=== PATIENT | female | born 1975 | race Caucasian/White ===

== ENCOUNTER 2019-12-20 10:49 | Outpatient (CLI) | payer OTHER, SELFPAY ==
--- NOTE | 2019-12-20 10:54 | US_ITS ---
WS: [id number] Bilateral renal ultrasound, 12/20/2019 Clinical Data: CHRONIC KIDNEY DZ/ESSENTIAL HTN Comparison: Abdomen ultrasound, 06/15/2016. Findings: The right kidney measures 9.6 cm x 4.6 cm x 4.6 cm and the left kidney is 11.1 cm x 4.5 cm x 5.1 cm. The right kidney shows several small cysts and nonobstructing stones. The left kidney shows no cysts or stones. The abdominal aorta and inferior vena cava show no vascular abnormalities. The bladder showed no intraluminal filling defects or wall thickening. US/US renal BI* [id number] Impression: Small right renal cysts and nonobstructing calculi.
== END 2019-12-20 10:50 | disposition home or self-care (01) ==
LOC: US 10:52
PROVIDERS: Visit Provider Nurse Practitioner Family
DX: N18.9 Chronic kidney disease, unspecified (principal); I10 Essential (primary) hypertension; N20.0 Calculus of kidney; Q61.02 Congenital multiple renal cysts
CPT/HCPCS: 76770

== ENCOUNTER 2020-01-31 11:23 | Outpatient (CLI) | payer OTHER, SELFPAY ==
--- NOTE | 2020-01-31 11:35 | XR_ITS ---
WS: [id number] CHEST 2 VIEWS HISTORY: PNEUMONIA, SHORTNESS OF BREATH COMPARISON: 03/08/2019 Lungs: Clear with no abnormality. No pleural effusion or pneumothorax. Cardiac size: Normal. Mediastinum/Aorta: Normal mediastinum. Bones: Normal. XR/XR chest 2V* [id number] IMPRESSION: Normal chest.
== END 2020-01-31 11:24 | disposition home or self-care (01) ==
PROVIDERS: Family Provider Nurse Practitioner Family; PCP Nurse Practitioner Family; Visit Provider Nurse Practitioner Family
DX: J18.9 Pneumonia, unspecified organism (principal); R06.02 Shortness of breath
CPT/HCPCS: 71046

== ENCOUNTER 2020-12-23 18:31 | Outpatient (CLI) | payer OTHER, SELFPAY ==
--- NOTE | 2020-12-23 18:39 | XR_ITS ---
WS: [id number] Pelvis, AP and both obliques, 12/23/2020 Clinical Data: Pain rt hip , pelvis and thigh Comparison: None. Findings: No fractures or dislocations are seen. The SI joints and pubic symphysis are intact. The soft tissues are not remarkable. XR/XR pelvis min 3V [id number] Impression: Negative for fracture.
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
== END 2020-12-23 18:32 | disposition home or self-care (01) ==
LOC: RAD 18:35
PROVIDERS: PCP Nurse Practitioner Family; Visit Provider Nurse Practitioner
DX: S79.821A Other specified injuries of right thigh, initial encounter (principal); X58.XXXA Exposure to other specified factors, initial encounter
CPT/HCPCS: 72190; 73552

== ENCOUNTER 2021-03-11 13:26 | Outpatient (CLI) | payer OTHER, SELFPAY ==
[2021-03-11 13:40] VITALS: BP 158/100; PULSE 127; RESP 17; TEMP 37.1; O2SAT 93; BMI 23.3
[2021-03-11 14:15] VITALS: BP 151/98; PULSE 113; RESP 16; TEMP 36.6; O2SAT 95
[2021-03-11 15:13] VITALS: BP 153/94; PULSE 111; RESP 16; TEMP 36.2; O2SAT 94
== END 2021-03-11 13:27 | disposition home or self-care (01) ==
LOC: OPS 13:27
PROVIDERS: PCP Nurse Practitioner Family; Visit Provider Nurse Practitioner Family
DX: U07.1 COVID-19 (principal)
CPT/HCPCS: 96365

== ENCOUNTER 2021-07-08 12:46 | Outpatient (CLI) | payer OTHER, SELFPAY ==
--- NOTE | 2021-07-08 12:53 | MM_ITS ---
WS: [id number] BILATERAL 3D TOMOSYNTHESIS DIGITAL SCREENING MAMMOGRAPHY WITH CAD CLINICAL INFORMATION: SCREENING HISTORY: Screening mammogram. No current complaints. COMPARISON: TECHNIQUE: Bilateral CC and MLO views. FINDINGS: The breasts are composed of heterogeneous fibroglandular density tissue, which can limit the detectio n of small underlying mass lesions. Vascular calcification. No suspicious mass, asymmetry, calcificat ions, or architectural distortion. No evidence of malignancy. MM/[place] [id number] IMPRESSION: BI-RADS: 2-Benign FOLLOW UP: 1 Year Follow-up Recommend return to annual screening mammography.
== END 2021-07-08 12:47 | disposition home or self-care (01) ==
LOC: RADSHAW 12:50
PROVIDERS: PCP Nurse Practitioner Family; Visit Provider Nurse Practitioner Family
DX: Z12.31 Encounter for screening mammogram for malignant neoplasm of breast (principal)
CPT/HCPCS: 77063; 77067

== ENCOUNTER → 2022-08-20 11:10 | Outpatient (BNVA) | payer BC, SELFPAY | PROVIDERS: PCP Nurse Practitioner Family; Visit Provider Nurse Practitioner Family | DX: J02.9 Acute pharyngitis, unspecified (principal) | CPT/HCPCS: 87880 ==

== ENCOUNTER 2023-07-05 13:24 | Emergency (ER) | payer BC, SELFPAY ==
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
[2023-07-05 13:36] VITALS: BP 204/101; PULSE 89; RESP 15; TEMP 36.7; O2SAT 98
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
--- NOTE | 2023-07-05 14:01 | PC.PHAR ---
pt states she takes care of her own medications-pt states she takes her atenolol 25mg daily prn heart palpitations rx filled 07/02/23 30d/s 25mg daily
[2023-07-05] MEDS: cephALEXin 500 mg Capsule PO (14:52)
[2023-07-05] MEDS: tetanus-dipt-pertussis 0.5 mL SDV IM (14:53)
== END 2023-07-05 15:07 | disposition home or self-care (01) ==
PROVIDERS: Emergency Provider Emergency Medicine; PCP Nurse Practitioner Family
DX: S91.331A Puncture wound without foreign body, right foot, initial encounter (principal); S92.354B Nondisplaced fracture of fifth metatarsal bone, right foot, initial encounter for open fracture; W34.00XA Accidental discharge from unspecified firearms or gun, initial encounter; Z23 Encounter for immunization
CPT/HCPCS: 73630; 90471; 90715; 99283

== ENCOUNTER 2023-07-07 10:32 | Outpatient (CLI) | payer BC, SELFPAY | END 2023-07-07 10:33 | disposition home or self-care (01) | LOC: SPT 10:33 | PROVIDERS: PCP Nurse Practitioner Family; Visit Provider Podiatrist Foot & Ankle Surgery | DX: Z46.89 Encounter for fitting and adjustment of other specified devices (principal); S92.354B Nondisplaced fracture of fifth metatarsal bone, right foot, initial encounter for open fracture; X58.XXXD Exposure to other specified factors, subsequent encounter | CPT/HCPCS: L4361 ==

== ENCOUNTER → 2023-07-21 12:46 | Outpatient (BNVA) | payer BC, SELFPAY | PROVIDERS: PCP Nurse Practitioner Family; Visit Provider Podiatrist Foot & Ankle Surgery | DX: S92.354B Nondisplaced fracture of fifth metatarsal bone, right foot, initial encounter for open fracture (principal); W34.09XA Accidental discharge from other specified firearms, initial encounter | CPT/HCPCS: 73630 ==

== ENCOUNTER 2023-07-21 14:11 | Outpatient (CLI) | payer BC, SELFPAY | END 2023-07-21 14:12 | disposition home or self-care (01) | LOC: SPT 14:11 | PROVIDERS: PCP Nurse Practitioner Family; Visit Provider Podiatrist Foot & Ankle Surgery | DX: Z46.89 Encounter for fitting and adjustment of other specified devices (principal); S92.354B Nondisplaced fracture of fifth metatarsal bone, right foot, initial encounter for open fracture; X58.XXXD Exposure to other specified factors, subsequent encounter | CPT/HCPCS: L3031 ==

== ENCOUNTER → 2023-08-11 12:37 | Outpatient (BNVA) | payer BC, SELFPAY | PROVIDERS: PCP Nurse Practitioner Family; Visit Provider Podiatrist Foot & Ankle Surgery | DX: S92.354B Nondisplaced fracture of fifth metatarsal bone, right foot, initial encounter for open fracture (principal); W34.09XA Accidental discharge from other specified firearms, initial encounter | CPT/HCPCS: 73630 ==

== ENCOUNTER 2024-03-08 11:13 | Outpatient (CLI) | payer BC, SELFPAY ==
--- NOTE | 2024-03-08 11:19 | MM_ITS ---
WS: [id number] BILATERAL 3D TOMOSYNTHESIS DIGITAL DIAGNOSTIC MAMMOGRAPHY WITH CAD CLINICAL INFORMATION: RIGHT BREAST LUMP HISTORY: COMPARISON: 07/08/2021 TECHNIQUE: Bilateral CC, MLO, and ML views. FINDINGS: The breasts are composed of heterogeneous fibroglandular density, which can limit the detection of sm all underlying mass lesions. Palpable marker upper outer RIGHT breast. Deep to the palpable marker is a new focal asymmetric density with associated pleomorphic calcifications. Asymmetric density measur es approximately 1.8 x 1.3 cm. Ultrasound of this area is pending. Focal asymmetric density located a long the RIGHT axillary tail. Vascular calcifications. LEFT breast is unchanged. ULTRASOUND BREAST RIGHT TECHNIQUE: Ultrasound right breast focused area of concern. CLINICAL INFORMATION: RIGHT BREAST LUMP FINDINGS: Ultrasound RIGHT breast the 10 o'clock position 4 cm from the nipple. Deep to the palpable marker is a hypoechoic spiculated solid appearing mass measuring approximately 1.4 x 0.9 x 1.5 cm suspicious fo r neoplasm. Recommend further evaluation with ultrasound-guided biopsy. Ultrasound of the RIGHT axilla demonstrates no abnormal lymph nodes. MM/MM diag BI tomosynthesis [id number] IMPRESSION: DENSITY: The breasts are heterogeneously dense, which may obscure small masses. BI-RADS: 5 - Highly suggestive of Malignancy FOLLOW UP: US Guided Biopsy Recommended Recommend ultrasound-guided biopsy of the RIGHT breast mass.
== END 2024-03-08 11:14 | disposition home or self-care (01) ==
LOC: RAD 11:15
PROVIDERS: PCP Nurse Practitioner Family; Visit Provider Nurse Practitioner Family
DX: N63.11 Unspecified lump in the right breast, upper outer quadrant (principal); R92.323 Mammographic fibroglandular density, bilateral breasts
CPT/HCPCS: 76642; 77062; G0279

== ENCOUNTER 2024-03-28 13:30 | Outpatient (CLI) | payer BC, SELFPAY ==
--- NOTE | 2024-03-28 13:34 | US_ITS ---
WS: [id number] ULTRASOUND-GUIDED RIGHT BREAST BIOPSY HISTORY: R BREAST MASS COMPARISON: 03/08/2024, Procedure, risks and complications are explained to the patient. Medications are reviewed. Consent is obtained. The mass in the RIGHT breast is localized with ultrasound. Mass located at 10:00, 4 cm from the nippl e. Skin is cleansed with ChloraPrep and anesthetized with 1% buffered lidocaine. Small dermatome is m antonio. Under sterile conditions mass is biopsied with a 14-gauge Achieve needle. Multiple core biopsies are performed. Material placed in formalin and sent to pathology for review. No complications encoun tered. Breast tissue marker ([place] ultrasound enhanced ribbon): Single. Patient left the radiology suite with no complications. Patient is instructed to return to [facility] or [facility] with any concerns. US/[place] [id number] IMPRESSION: 1. Uncomplicated core needle biopsy RIGHT breast mass at 10:00. PATHOLOGY: Invasive mammary carcinoma with necrosis. Breast prognostic profile has been ordered and will be reported separately. RECOMMENDATION: Follow-up with breast surgeon and oncology.
[2024-04-02 07:41] LABS: Breast Profile ER,PR,HER2,Ki-6 See Report
== END 2024-03-28 13:31 | disposition home or self-care (01) ==
LOC: RAD 13:32
PROVIDERS: PCP Nurse Practitioner Family; Visit Provider Nurse Practitioner Family
DX: C50.411 Malignant neoplasm of upper-outer quadrant of right female breast (principal); N64.1 Fat necrosis of breast
CPT/HCPCS: 19083; 88305; 88361; 88374

== ENCOUNTER 2024-04-01 15:30 | Emergency (ER) | payer BC, SELFPAY ==
[2024-04-01 15:38] VITALS: BP 180/94; PULSE 82; RESP 18; TEMP 36.4; O2SAT 99; BMI 21.6
--- NOTE | 2024-04-01 16:34 | CTR_ITS ---
PROCEDURE INFORMATION: Exam: CT Abdomen And Pelvis Without Contrast Exam date and time: 04/01/2024 4:57 PM Age: 49 years old Clinical indication: Abdominal pain; Flank; Right; Prior surgery; Surgery date: 6+ months; Surgery type: Adhesions; Patient HX: HX of renal stones; Additional info: Flank pain TECHNIQUE: Imaging protocol: Computed tomography of the abdomen and pelvis without contrast. Radiation optimization: All CT scans at this facility use at least one of these dose optimization techniques: automated exposure control; mA and/or kV adjustment per patient size (includes targeted exams where dose is matched to clinical indication); or iterative reconstruction. COMPARISON: CT Chest/Abdomen/Pelvis w IV* 11/06/2018 6:54 PM RADIATION DOSE METRICS: Total DLP (mGy-cm): 367.93 FINDINGS: Liver: Normal. No mass. Gallbladder and biliary ducts: Normal. No calcified stones. No ductal dilation. Pancreas: Normal. No ductal dilation. Spleen: Normal. No splenomegaly. Adrenal glands: Normal. No mass. Kidneys and ureters: There is an obstructing 4 mm stone in the distal right ureter with upstream hydroureter and mild hydronephrosis and perinephric fat stranding on the right. Additional nonobstructing stones in the left kidney measuring up to 5 mm. There is a nonobstructing 3 mm stone in the proximal left ureter with no upstream hydroureter or hydronephrosis. Stomach and bowel: Unremarkable. No obstruction. No mucosal thickening. Appendix: The appendix is not visualized but there are no secondary signs of acute appendicitis. Intraperitoneal space: Unremarkable. No free air. No significant fluid collection. Vasculature: Unremarkable. No abdominal aortic aneurysm. Lymph nodes: Unremarkable. No enlarged lymph nodes. Urinary bladder: Unremarkable as visualized. Reproductive: Unremarkable as visualized. Bones/joints: Unremarkable. No acute fracture. Soft tissues: Unremarkable. CT/CT kidney stone [id number] IMPRESSION: 1. There is an obstructing 4 mm stone in the distal right ureter with upstream hydroureter and mild hydronephrosis and perinephric fat stranding on the right. 2. There is a nonobstructing 3 mm stone in the proximal left ureter with no upstream hydroureter or hydronephrosis.
[2024-04-01 17:34] LABS: Basophils # 0.1 10^3/uL (0.0-0.1); Basophils % 0.4 %; Eosinophils # 0.1 10^3/uL (0.0-0.8); Lymphocytes % 8.9 %; Mean Corpuscular HGB Conc 32.4 g/dL (30-55); Mean Corpuscular Hemoglobin 30.2 pg (27-33); Mean Corpuscular Volume 93.1 fl (85-98); Mean Platelet Volume 10.5 fL (7.4-10.4); Monocytes # 1.3 10^3/uL (0.2-0.9); Monocytes % 11.1 %; Neutrophils # 8.77 10^3/uL (1.8-7.7); Neutrophils % 78.1 %; Nucleated Red Blood Cells % 0 %; Platelet Count 256 10^3/cmm (157-399); Red Blood Count 4.51 10^6/uL (3.85-5.65); Red Cell Distribution Width 13.2 % (12.1-15.1); White Blood Count 11.24 10^3/uL (3.29-11.43)
--- NOTE | 2024-04-01 17:46 | ED_ITS ---
Documented by User: Gene Simons DO 04/03/24 13:05 HPI - Back Pain/Injury 2 General: Chief Complaint: Back Pain/Injury Stated Complaint: abd pain Time Seen by Provider: 04/01/24 17:46 History of Present Illness: Associated symptoms: Deny abdominal pain, chills, dysuria, fever(s) or urinary urgency Related Data Home Medications Medication Instructions Recorded Confirmed atenolol 25 mg tablet 25 mg PO BEDTIME PRN heart 12/23/20 08/18/23 palpitations budesonide-formoterol HFA 160 2 puff inhalation BID 12/23/20 08/18/23 mcg-4.5 mcg/actuation aerosol inhaler (Symbicort) albuterol sulfate 2.5 mg/3 mL 2.5 mg inhalation Q4H PRN 07/05/23 08/18/23 (0.083 %) solution for nebulization Shortness Of Breath albuterol sulfate 90 mcg/actuation 1 puff inhalation Q4H PRN 07/05/23 08/18/23 aerosol inhaler Shortness Of Breath Previous Rx's Medication Instructions Recorded Cam boot to right #1 ea 07/07/23 carbon fiber insole #1 ea 07/21/23 cephalexin 500 mg capsule 500 mg PO BID 7 days #14 caps 08/11/23 ketorolac 10 mg tablet 10 mg PO TID PRN pain #10 tabs 04/01/24 ondansetron 4 mg disintegrating 4 mg PO Q6H PRN nausea and 04/01/24 tablet vomiting #14 tabs oxycodone-acetaminophen 7.5 mg-325 1 tab PO Q6H PRN pain #10 tabs 04/01/24 mg tablet (Percocet) tamsulosin 0.4 mg capsule (Flomax) 0.4 mg PO DAILY #7 caps 04/01/24 Allergies Allergy/AdvReac Type Severity Reaction Status Date / Time yellow dye Allergy Unknown Verified 08/18/23 12:44 Review of Systems 2 Const: Denies: fever(s) or chills Card: Denies: chest pain Resp: Denies: dyspnea GI: Denies: abdominal pain : Denies: dysuria, urinary frequency or urinary urgency Musc: Denies: neck pain or back pain Skin/Breast: Denies: rash PFSH ED 2 PFSH: Social History Smoking and tobacco/nicotine status: never used tobacco/nicotine Second hand smoke exposure: No Alcohol intake: never Substance/Drug Use: never Adopted: No Caregiver/support person: No Lives independently: Yes Household members: significant other Housing: House Marital status: Number of children: 0 Highest education level completed: Associate Degree: Occupational, Technical, Vocational Program service: No Current occupational status: employed Physical Exam 2 Const: COMMON NORMALS: no acute distress GENERAL APPEARANCE: cooperative and comfortable ORIENTATION/CONSCIOUSNESS: Yes awake, Yes oriented to person, Yes oriented to place and Yes oriented to time HENMT: COMMON NORMALS: normocephalic, atraumatic and hearing grossly normal bilaterally HEAD & SCALP: normocephalic and atraumatic Resp: COMMON NORMALS: normal respiratory effort, No retractions, No use of accessory muscles and clear to auscultation bilaterally AUSCULTATION: clear to auscultation bilaterally Cardio: COMMON NORMALS: regular rate, regular rhythm and No murmurs present (Cardio) RATE: regular rate RHYTHM: regular rhythm GI: COMMON NORMALS: Soft to palpation and No hepatosplenomegaly present A USCULTATION: Yes normoactive bowel sounds PALPATION: Yes Soft to palpation, No Tenderness to palpation present (GI), No Guarding due to palpation present (GI) and Yes No hepatosplenomegaly present Extremity: COMMON NORMALS: normal to inspection, capillary refill normal, no clubbing, cyanosis or edema, no calf tenderness and no pedal edema Neuro: SENSORIUM/ORIENTATION: Yes oriented to person, Yes oriented to place and Yes oriented to time Skin: COMMON NORMALS: no rashes or lesions noted GENERAL SKIN EXAM: no rashes or lesions noted Course 2 Vital Signs: Vital signs: Vital Signs Temperature 97.6 F 04/01/24 15:38 Pulse Rate 68 04/01/24 19:30 Respiratory Rate 16 04/01/24 18:24 Blood Pressure 110/67 04/01/24 19:30 Pulse Oximetry 97 04/01/24 19:30 Oxygen Delivery Me thod Room Air 04/01/24 18:24 MDM - Back Pain/Injury Medical Decision Making Care signed out to Dr. Nieto at change of shift. See final notes for diagnosis and disposition. 49-year-old female checked out at shift change. This lady has flank pain. Creatinine is 1.5. Other laboratory is not remarkable, save a urinalysis showing hematuria. Is negative for infection. There is hydroureter and a 4 mm stone in the distal right ureter on CT scan consistent with her symptoms. She was counseled. She would like to try management at home. She will be given prescriptions for pain medication, antiemetics, tamsulosin. She will see if she can pass it at home. She will return for any worsening symptoms despite treatment. Labs 04/01/24 17:24 04/01/24 17:24 Radiology Impressions Abdomen/Pelvis CT 04/01/24 16:34 IMPRESSION: 1. There is an obstructing 4 mm stone in the distal right ureter with upstream hydroureter and mild hydronephrosis and perinephric fat stranding on the right. 2. There is a nonobstructing 3 mm stone in the proximal left ureter with no upstream hydroureter or hydronephrosis. Laboratory Results WBC 11.24 10^3/uL (3.29-11.43) 04/01/24 17:24 RBC 4.51 10^6/uL (3.85-5.65) 04/01/24 17:24 Hgb 13.60 g/dL (11.27-16.99) 04/01/24 17:24 Hct 42.0 % (36-47) 04/01/24 17:24 MCV 93.1 fl (85-98) 04/01/24 17:24 MCH 30.2 pg (27-33) 04/01/24 17:24 MCHC 32.4 g/dL (30-55) 04/01/24 17:24 RDW 13.2 % (12.1-15.1) 04/01/24 17:24 Plt Count 256 10^3/cmm (157-399) 04/01/24 17:24 MPV 10.5 fL (7.4-10.4) H 04/01/24 17:24 Neut % (Auto) 78.1 % 04/01/24 17:24 Lymph % (Auto) 8.9 % 04/01/24 17:24 [place] % (Auto) 11.1 % 04/01/24 17:24 Eos % (Auto) 1.0 % 04/01/24 17:24 Baso % (Auto) 0.4 % 04/01/24 17:24 Neut # (Auto) 8.77 10^3/uL (1.8-7.7) H 04/01/24 17:24 Lymph # (Auto) 1.0 10^3/uL (0.8-4.8) 04/01/24 17:24 [place] # (Auto) 1.3 10^3/uL (0.2-0.9) H 04/01/24 17:24 Eos # (Auto) 0.1 10^3/uL (0.0-0.8) 04/01/24 17:24 Baso # (Auto) 0.1 10^3/uL (0.0-0.1) 04/01/24 17:24 Nucleated RBC % (auto) 0 % 04/01/24 17:24 Nucleated RBCs # 0.0 /100WBC 04/01/24 17:24 Sodium 143 mmol/L (136-145) 04/01/24 17:24 Potassium 4.0 mmol/L (3.5-5.1) 04/01/24 17:24 Chloride 106 mmol/L (98-107) 04/01/24 17:24 Carbon Dioxide 28 mmol/L (22-29) 04/01/24 17:24 Anion Gap 13.0 (5-19) 04/01/24 17:24 BUN 25 mg/dL (6-20) H 04/01/24 17:24 Creatinine 1.5 mg/dL (0.5-0.9) H 04/01/24 17:24 GFR Calculation 36.6 mL/min (90-130) L 04/01/24 17:24 Glucose 119 mg/dL (65-115) H 04/01/24 17:24 Calculated Osmolality 302 mOsm/kg (285-295) H 04/01/24 17:24 Calcium 9.6 mg/dL (8.5-10.5) 04/01/24 17:24 Total Bilirubin 1.0 mg/dL (0.15-1.2) 04/01/24 17:24 AST 18 U/L (0-32) 04/01/24 17:24 ALT 17 U/L (0-33) 04/01/24 17:24 Alkaline Phosphatase 52 U/L (35-105) 04/01/24 17:24 Total Protein 6.7 g/dL (6.6-8.7) 04/01/24 17:24 Albumin 3.9 g/dL (3.5-5.2) 04/01/24 17:24 Globulin 2.8 g/dL (1.3-4.6) 04/01/24 17:24 Lipase 50 U/L (13-60) 04/01/24 17:24 Urine Color Yellow (Yellow) 04/01/24 16:45 Urine Appearance Clear (CLEAR) 04/01/24 16:45 Urine pH 5.5 (5-7) 04/01/24 16:45 Ur Specific [place] 1.026 (1.005-1.030) 04/01/24 16:45 Urine Protein Negative (Negative) 04/01/24 16:45 Urine Glucose (UA) Negative (Normal) 04/01/24 16:45 Urine Ketones 1+ (Negative) H 04/01/24 16:45 Urine Blood 3+ (Negative) A 04/01/24 16:45 Urine Nitrate Negative (Negative) 04/01/24 16:45 Urine Bilirubin Negative (Negative) 04/01/24 16:45 Urine Urobilinogen 1.0 mg/dL (Negative) 04/01/24 16:45 Ur Leukocyte Esterase Negative (Negative) 04/01/24 16:45 Urine RBC 15-25 /hpf (0-2) H 04/01/24 16:45 Urine WBC 0-4 /hpf (0-5) H 04/01/24 16:45 Ur Squamous Epith Cells 0-4 /hpf (0-5) H 04/01/24 16:45 Amorphous Sediment Not Reportable 04/01/24 16:45 Urine Bacteria Trace /hpf (NONE) 04/01/24 16:45 Urine Mucus 1+ /hpf 04/01/24 16:45 Discharge Plan Discharge Patient Disposition: Home Clinical Impression: Ureterolithiasis Condition: Stable Prescriptions: New ketorolac 10 mg tablet 10 mg PO TID PRN (Reason: pain) Qty: 10 0RF oxycodone-acetaminophen [Percocet] 7.5-325 mg tablet 1 tab PO Q6H PRN (Reason: pain) Qty: 10 0RF ondansetron 4 mg tablet,disintegrating 4 mg PO Q6H PRN (Reason: nausea and vomiting) Qty: 14 0RF tamsulosin [Flomax] 0.4 mg capsule 0.4 mg PO DAILY Qty: 7 0RF No Action atenolol 25 mg tablet 25 mg PO BEDTIME PRN (Reason: heart palpitations) budesonide-formoterol [Symbicort] 160-4.5 mcg/actuation HFA aerosol inhaler 2 puff inhalation BID (DME) Cam boot to right See Rx Instructions .Route .MEDSUPPLY Qty: 1 0RF Rx Instructions: As directed (DME) carbon fiber insole See Rx Instructions .Route .MEDSUPPLY Qty: 1 0RF Rx Instructions: As directed cephalexin 500 mg capsule 500 mg PO BID 7 Days Qty: 14 0RF albuterol sulfate 2.5 mg /3 mL (0.083 %) solution for nebulization 2.5 mg inhalation Q4H PRN (Reason: Shortness Of Breath) albuterol sulfate 90 mcg/actuation HFA aerosol inhaler 1 puff INHALATION Q4H PRN (Reason: Shortness Of Breath) Discharge Orders: Discharge ED (Routine); Ordered 04/01/24 Ordered By: Adrian Nieto Referrals: Neda Harris FNP [Primary Care Provider] - 1-3 days Patient Instructions: Kidney Stones (ED), Opioid Safety, Pain Management Activity Restrictions/Additional Instructions: Return for worsening pain despite treatment, fever greater than 100, vomiting liquids or medications, other concerning symptoms. See your doctor this week. Strain your urine if possible. Medication as directed for symptoms. 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 She presents with 4 days or so of right flank pain. She has been trying to manage at home with pain medication and antiemetics. Pain became too much today. No fever. Related Data Home Medications Medication Instructions Recorded Confirmed atenolol 25 mg tablet 25 mg PO BEDTIME PRN heart 12/23/20 08/18/23 palpitations budesonide-formoterol HFA 160 2 puff inhalation BID 12/23/20 08/18/23 mcg-4.5 mcg/actuation aerosol inhaler (Symbicort) albuterol sulfate 2.5 mg/3 mL 2.5 mg inhalation Q4H PRN 07/05/23 08/18/23 (0.083 %) solution for nebulization Shortness Of Breath albuterol sulfate 90 mcg/actuation 1 puff inhalation Q4H PRN 07/05/23 08/18/23 aerosol inhaler Shortness Of Breath Previous Rx's Medication Instructions Recorded Cam boot to right #1 ea 07/07/23 carbon fiber insole #1 ea 07/21/23 cephalexin 500 mg capsule 500 mg PO BID 7 days #14 caps 08/11/23 ketorolac 10 mg tablet 10 mg PO TID PRN pain #10 tabs 04/01/24 ondansetron 4 mg disintegrating 4 mg PO Q6H PRN nausea and 04/01/24 tablet vomiting #14 tabs oxycodone-acetaminophen 7.5 mg-325 1 tab PO Q6H PRN pain #10 tabs 04/01/24 mg tablet (Percocet) tamsulosin 0.4 mg capsule (Flomax) 0.4 mg PO DAILY #7 caps 04/01/24 Allergies Allergy/AdvReac Type Severity Reaction Status Date / Time yellow dye Allergy Unknown Verified 08/18/23 12:44 PFSH ED 2 PFSH: Social History Smoking and tobacco/nicotine status: never used tobacco/nicotine Second hand smoke exposure: No Alcohol intake: never Substance/Drug Use: never Adopted: No Caregiver/support person: No Lives independently: Yes Household members: significant other Housing: House Marital status: Number of children: 0 Highest education level completed: Associate Degree: Occupational, Technical, Vocational Program service: No Current occupational status: employed Course 2 Vital Signs: Vital signs: Vital Signs Temperature 97.6 F 04/01/24 15:38 Pulse Rate 68 04/01/24 19:30 Respiratory Rate 16 04/01/24 18:24 Blood Pressure 110/67 04/01/24 19:30 Pulse Oximetry 97 04/01/24 19:30 Oxygen Delivery Me thod Room Air 04/01/24 18:24 MDM - Back Pain/Injury Medical Decision Making 49-year-old female checked out at shift change. This lady has flank pain. Creatinine is 1.5. Other laboratory is not remarkable, save a urinalysis showing hematuria. Is negative for infection. There is hydroureter and a 4 mm stone in the distal right ureter on CT scan consistent with her symptoms. She was counseled. She would like to try management at home. She will be given prescriptions for pain medication, antiemetics, tamsulosin. She will see if she can pass it at home. She will return for any worsening symptoms despite treatment. Labs 04/01/24 17:24 04/01/24 17:24 Radiology Impressions Abdomen/Pelvis CT 04/01/24 16:34 IMPRESSION: 1. There is an obstructing 4 mm stone in the distal right ureter with upstream hydroureter and mild hydronephrosis and perinephric fat stranding on the right. 2. There is a nonobstructing 3 mm stone in the proximal left ureter with no upstream hydroureter or hydronephrosis. Laboratory Results WBC 11.24 10^3/uL (3.29-11.43) 04/01/24 17:24 RBC 4.51 10^6/uL (3.85-5.65) 04/01/24 17:24 Hgb 13.60 g/dL (11.27-16.99) 04/01/24 17:24 Hct 42.0 % (36-47) 04/01/24 17:24 MCV 93.1 fl (85-98) 04/01/24 17:24 MCH 30.2 pg (27-33) 04/01/24 17:24 MCHC 32.4 g/dL (30-55) 04/01/24 17:24 RDW 13.2 % (12.1-15.1) 04/01/24 17:24 Plt Count 256 10^3/cmm (157-399) 04/01/24 17:24 MPV 10.5 fL (7.4-10.4) H 04/01/24 17:24 Neut % (Auto) 78.1 % 04/01/24 17:24 Lymph % (Auto) 8.9 % 04/01/24 17:24 [place] % (Auto) 11.1 % 04/01/24 17:24 Eos % (Auto) 1.0 % 04/01/24 17:24 Baso % (Auto) 0.4 % 04/01/24 17:24 Neut # (Auto) 8.77 10^3/uL (1.8-7.7) H 04/01/24 17:24 Lymph # (Auto) 1.0 10^3/uL (0.8-4.8) 04/01/24 17:24 [place] # (Auto) 1.3 10^3/uL (0.2-0.9) H 04/01/24 17:24 Eos # (Auto) 0.1 10^3/uL (0.0-0.8) 04/01/24 17:24 Baso # (Auto) 0.1 10^3/uL (0.0-0.1) 04/01/24 17:24 Nucleated RBC % (auto) 0 % 04/01/24 17:24 Nucleated RBCs # 0.0 /100WBC 04/01/24 17:24 Sodium 143 mmol/L (136-145) 04/01/24 17:24 Potassium 4.0 mmol/L (3.5-5.1) 04/01/24 17:24 Chloride 106 mmol/L (98-107) 04/01/24 17:24 Carbon Dioxide 28 mmol/L (22-29) 04/01/24 17:24 Anion Gap 13.0 (5-19) 04/01/24 17:24 BUN 25 mg/dL (6-20) H 04/01/24 17:24 Creatinine 1.5 mg/dL (0.5-0.9) H 04/01/24 17:24 GFR Calculation 36.6 mL/min (90-130) L 04/01/24 17:24 Glucose 119 mg/dL (65-115) H 04/01/24 17:24 Calculated Osmolality 302 mOsm/kg (285-295) H 04/01/24 17:24 Calcium 9.6 mg/dL (8.5-10.5) 04/01/24 17:24 Total Bilirubin 1.0 mg/dL (0.15-1.2) 04/01/24 17:24 AST 18 U/L (0-32) 04/01/24 17:24 ALT 17 U/L (0-33) 04/01/24 17:24 Alkaline Phosphatase 52 U/L (35-105) 04/01/24 17:24 Total Protein 6.7 g/dL (6.6-8.7) 04/01/24 17:24 Albumin 3.9 g/dL (3.5-5.2) 04/01/24 17:24 Globulin 2.8 g/dL (1.3-4.6) 04/01/24 17:24 Lipase 50 U/L (13-60) 04/01/24 17:24 Urine Color Yellow (Yellow) 04/01/24 16:45 Urine Appearance Clear (CLEAR) 04/01/24 16:45 Urine pH 5.5 (5-7) 04/01/24 16:45 Ur Specific [place] 1.026 (1.005-1.030) 04/01/24 16:45 Urine Protein Negative (Negative) 04/01/24 16:45 Urine Glucose (UA) Negative (Normal) 04/01/24 16:45 Urine Ketones 1+ (Negative) H 04/01/24 16:45 Urine Blood 3+ (Negative) A 04/01/24 16:45 Urine Nitrate Negative (Negative) 04/01/24 16:45 Urine Bilirubin Negative (Negative) 04/01/24 16:45 Urine Urobilinogen 1.0 mg/dL (Negative) 04/01/24 16:45 Ur Leukocyte Esterase Negative (Negative) 04/01/24 16:45 Urine RBC 15-25 /hpf (0-2) H 04/01/24 16:45 Urine WBC 0-4 /hpf (0-5) H 04/01/24 16:45 Ur Squamous Epith Cells 0-4 /hpf (0-5) H 04/01/24 16:45 Amorphous Sediment Not Reportable 04/01/24 16:45 Urine Bacteria Trace /hpf (NONE) 04/01/24 16:45 Urine Mucus 1+ /hpf 04/01/24 16:45 All radiology interpretation(s) finalized by discharge Discharge Plan Discharge Patient Disposition: Home Clinical Impression: Ureterolithiasis Condition: Stable Prescriptions: New ketorolac 10 mg tablet 10 mg PO TID PRN (Reason: pain) Qty: 10 0RF oxycodone-acetaminophen [Percocet] 7.5-325 mg tablet 1 tab PO Q6H PRN (Reason: pain) Qty: 10 0RF ondansetron 4 mg tablet,disintegrating 4 mg PO Q6H PRN (Reason: nausea and vomiting) Qty: 14 0RF tamsulosin [Flomax] 0.4 mg capsule 0.4 mg PO DAILY Qty: 7 0RF No Action atenolol 25 mg tablet 25 mg PO BEDTIME PRN (Reason: heart palpitations) budesonide-formoterol [Symbicort] 160-4.5 mcg/actuation HFA aerosol inhaler 2 puff inhalation BID (DME) Cam boot to right See Rx Instructions .Route .MEDSUPPLY Qty: 1 0RF Rx Instructions: As directed (DME) carbon fiber insole See Rx Instructions .Route .MEDSUPPLY Qty: 1 0RF Rx Instructions: As directed cephalexin 500 mg capsule 500 mg PO BID 7 Days Qty: 14 0RF albuterol sulfate 2.5 mg /3 mL (0.083 %) solution for nebulization 2.5 mg inhalation Q4H PRN (Reason: Shortness Of Breath) albuterol sulfate 90 mcg/actuation HFA aerosol inhaler 1 puff INHALATION Q4H PRN (Reason: Shortness Of Breath) Discharge Orders: Discharge ED (Routine); Ordered 04/01/24 Ordered By: Adrian Nieto Referrals: Harris,Neda, MERCHANDISE COMPLAINT ADJUSTER [Primary Care Provider] - 1-3 days Patient Instructions: Kidney Stones (ED), Opioid Safety, Pain Management Activity Restrictions/Additional Instructions: Return for worsening pain despite treatment, fever greater than 100, vomiting liquids or medications, other concerning symptoms. See your doctor this week. Strain your urine if possible. Medication as directed for symptoms. 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
[2024-04-01 17:48] LABS: Bilirubin Urine Negative (Negative); Blood Urine 3+ (Negative); Glucose Urine UA Negative (Normal); Ketones Urine 1+ (Negative); Leukocyte Esterase Urine Negative (Negative); Nitrate Urine Negative (Negative); Protein Urine Negative (Negative); Specific Gravity, Urine 1.026 (1.005-1.030); Urine Appearance Clear (CLEAR); Urine Color Yellow (Yellow); pH Urine 5.5 (5-7)
[2024-04-01 17:55] LABS: UA Manual Slide Review YES; UA Slide Review UA Slide Review Perf
[2024-04-01 17:56] LABS: Alanine Aminotransferase 17 U/L (0-33); Albumin Level 3.9 g/dL (3.5-5.2); Alkaline Phosphatase 52 U/L (35-105); Aspartate Amino Transferase 18 U/L (0-32); Blood Urea Nitrogen 25 mg/dL (6-20); Calcium 9.6 mg/dL (8.5-10.5); Carbon Dioxide 28 mmol/L (22-29); Chloride 106 mmol/L (98-107); Creatinine Clr Calc Pharmacy 40.4775; Globulin 2.8 g/dL (1.3-4.6); Glomerular Filtration Rate 36.6 mL/min (90-130); Glucose 119 mg/dL (65-115); Lipase 50 U/L (13-60); Osmolality Calculated 302 mOsm/kg (285-295); Sodium 143 mmol/L (136-145); Total Protein 6.7 g/dL (6.6-8.7)
[2024-04-01 17:56] LABS: Add Urine Culture? Yes; Add Urine Microscopic? YES; Bacteria Urine TRACE /hpf; Mucus Urine 1+ /hpf; RBC Urine 15-25 /hpf (0-2); Squamous Epithelial Cell Urine 0-4 /hpf (0-5); WBC Urine 0-4 /hpf (0-5)
[2024-04-01 18:20] VITALS: RESP 18
[2024-04-01] MEDS: morphine 4 mg/mL SDV 1 mL IVP (18:20)
[2024-04-01] MEDS: ketorolac 30 mg/mL INJ IVP (18:20)
[2024-04-01] MEDS: ondansetron 2 mg/ML SDV 2 mL 4 MG IVP (18:20)
[2024-04-01 18:24] VITALS: BP 156/89; PULSE 60; RESP 16; O2SAT 97
[2024-04-01 19:30] VITALS: BP 110/67; PULSE 68; O2SAT 97
== END 2024-04-01 19:40 | disposition home or self-care (01) ==
PROVIDERS: Emergency Medicine; Emergency Provider Emergency Medicine; PCP Nurse Practitioner Family
DX: N20.1 Calculus of ureter (principal)
CPT/HCPCS: 36415; 74176; 80053; 81001; 83690; 85025; 87077; 87086; 87186; 96374; 96375; 99285; J1885; J2270; J2405

== ENCOUNTER 2024-06-12 07:35 | Day surgery (SDC) | payer BC, SELFPAY ==
[2024-06-12] VITALS (8 sets, daily range): BP systolic 129–153; BP diastolic 78–94; PULSE 64–73; RESP 10–20; TEMP 36.1; O2SAT 94–100; BMI 20.7
--- NOTE | 2024-06-12 07:44 | XR_ITS ---
WS: [id number] Exam: XR chest 1V portable [id number] Date/Time of Exam: 06/12/2024 10:04 AM Reason For Exam: Postop Mediport placement Comparison 01/31/2020 Lungs are fully expanded and clear. A LEFT subclavian Mediport has been placed and ends at the expected region of the cavoatrial junction. Normal cardiomediastinal silhouette. Normal bony elements. XR/XR chest 1V portable [id number] IMPRESSION: 1. LEFT subclavian Mediport ending at the expected region of the cavoatrial angelica ction. The chest is otherwise normal.
--- NOTE | 2024-06-12 07:44 | SC_ITS ---
WS: [id number] INTRAOPERATIVE TECHNIQUE: 2 Spot fluoroscopic images for intraoperative purposes. FLUOROSCOPY TIME: 1.9 seconds CLINICAL INFORMATION: Mediport placement FINDINGS: LEFT central venous catheter with tip in the SVC. No visualized pneumothorax. SC/C-arm FL for CVA [id number] IMPRESSION: Images obtained for intraoperative purposes.
--- NOTE | 2024-06-12 08:24 | W.PM.OPSUD ---
Surgery/Procedure H&P Update DATE OF PROCEDURE: June 12, 2024 DATE H&P PERFORMED: 06/07/24 H&P UPDATE INFORMATION: I have reviewed H&P completed within last 30 days, I have examined patient prior to procedure and No changes to prior documentation PLANNED PROCEDURE: Operation Date: 06/12/24 09:35 Proposed Procedures p Portacath Placement 03716, C50.911(Not Applicable) - Dewey Serrato DO
--- NOTE | 2024-06-12 08:41 | ANES.PREANE2 ---
Pre-Anesthetic Assessment Height/Weight: Height 5 ft 5 in Weight 125 lb Temp Pulse Resp BP Pulse Ox O2 Del Method 97 F L 67 16 153/94 98 Room Air 06/12/24 07:54 06/12/24 07:54 06/12/24 07:54 06/12/24 07:54 06/12/24 07:54 06/12/24 07:54 Preop Diagnosis: Breast cancer Operation Date: 06/12/24 09:35 Proposed Procedures p Portacath Placement 14104, C50.911(Not Applicable) - Dewey Serrato, DO Was Beta Kvng taken within 24 hours: Yes Was Clonidine taken within 24 hours: N/A Last intake: Intake Last Liquid Date 06/11/24 Last Liquid Time 23:30 Last Solid Date 06/11/24 Last Solid Time 20:30 Social No alcohol and No tobacco Exam alert, oriented x 3, clear to auscultation bilaterally and regular rate & rhythm Airway Submandibular: within normal limits Cervical ROM: within normal limits Mallampati: Class III Dentition: full Anesthetic Plan ASA status: 3 Anesthesia: MAC Other: No prior issues with anesthesia NPO since yesterday evening Patient has breast cancer, beginning chemotherapy History of palpitations, on atenolol Denies hypertension, preop BP 1 153/94 Recent labs 05/31/2024 reviewed acceptable for procedure Plan for MAC anesthetic Medications/Allergies Home Medications ?Medication ?Instructions ?Recorded ?Confirmed ?Last Taken ?Type albuterol sulfate 2.5 mg/3 mL 2.5 mg inhalation Q4H PRN 07/05/23 06/11/24 Unknown History (0.083 %) solution for nebulization Shortness Of Breath albuterol sulfate 90 mcg/actuation 1 puff inhalation Q4H PRN 07/05/23 06/11/24 Unknown History aerosol inhaler Shortness Of Breath Cam boot to right #1 ea 07/07/23 06/07/24 Unknown Rx carbon fiber insole #1 ea 07/21/23 06/07/24 Unknown Rx ondansetron 4 mg disintegrating 4 mg PO Q6H PRN nausea and 04/01/24 06/11/24 Unknown Rx tablet vomiting #14 tabs atenolol 25 mg tablet 25 mg PO BID heart palpitations 05/31/24 06/12/24 06/12/24 06:30 History budesonide-formoterol HFA 160 2 puff inhalation BID PRN Allergy 05/31/24 06/11/24 Unknown History mcg-4.5 mcg/actuation aerosol Symptoms inhaler (Symbicort) triamcinolone acetonide 10 mg/mL 10 mg SUBCUT .[id number] 05/31/24 06/11/24 Unknown History suspension for injection (Kenalog) vit N-ymmx-[id number] ginseng-herbal 1 tab PO BID 05/31/24 06/11/24 06/11/24 History complex no.62 75 mg tablet vitamin D3 125 mcg (5,000 1 cap PO DAILY 05/31/24 06/11/24 06/11/24 History unit)-vitamin K2 180 mcg capsule (K2-D3 Max) lorazepam 1 mg tablet 0.5 - 1 mg (0.5 - 1 x 1 mg) PO Q6H 06/01/24 06/11/24 Unknown Rx PRN severe nausea #30 tabs carboplatin 10 mg/mL intravenous 170 mg (17 mL) IV ONCE #135 mL 06/06/24 06/11/24 Unknown Rx solution paclitaxel 6 mg/mL 130 mg (21.6667 mL) IV ONCE #75 mL 06/06/24 06/11/24 Unknown Rx concentrate,intravenous pembrolizumab 25 mg/mL intravenous 200 mg (8 mL) IV Q21D #8 mL 06/06/24 06/11/24 Unknown Rx solution prochlorperazine maleate 10 mg 10 mg PO Q4H PRN mild nausea #30 06/06/24 06/11/24 Unknown Rx tablet (Compazine) tabs Allergies Allergy/AdvReac Type Severity Reaction Status Date / Time yellow dye Allergy Unknown Verified 06/12/24 07:47 [facility] Anesthesia Social History Smoking and tobacco/nicotine status: never used tobacco/nicotine Second hand smoke exposure: No Alcohol intake: never Substance/Drug Use: never Adopted: No Caregiver/support person: No Lives independently: Yes Household members: significant other Housing: House Marital status: Number of children: 0 Highest education level completed: Associate Degree: Occupational, Technical, Vocational Program service: No Current occupational status: employed Data Anesthesia Cardiac Studies: No Data to Display
[2024-06-12] MEDS: ceFAZolin 2,000 mg SDV 2000 MG IVP (09:17)
[2024-06-12] MEDS: lidocaine-epi 2% PF 1:200,000 20 mL SDV XX (09:44)
[2024-06-12] MEDS: heparin, porcine 1,000 unit/mL INJ 10 mL 10000 UNIT INJECTION (09:45)
--- NOTE | 2024-06-12 10:15 | PM.OP ---
Operative Report Date of procedure: June 12, 2024 Surgeon: Dewey Serrato DO Brief History: This is a very pleasant 49-year-old female with breast cancer. Oncology requested Mediport placement for chemotherapy access. The risks and benefits were explained and documented. Procedure: Pre-op diagnosis: Post-op diagnosis: same Procedure done: Mediport placement Intraoperative interpretation of fluoroscopy Implants: PowerPort Specimens removed/disposition: None Surgeon: Dewey Serrato DO Anesthesia: MAC and Local Estimated blood loss (mL): 5 Complications: None apparent Procedure: The patient was taken to the operating room and placed supine on the operating room table. All bony prominences were padded. She was given IV sedation and monitored throughout the case by the anesthesia personnel. SCDs were placed and turned on. The arms were tucked to the side. Patient received Ancef 2 g preoperatively IV. The bilateral chest wall was prepped and draped in usual sterile fashion using chlorhexidine base prep. Sterile drapes were applied. We did procedure pause prior to beginning. An 18 gauge needle was placed in the left subclavian vein. Dark, nonpulsatile blood was aspirated. A guidewire was placed through the needle centrally toward the atrial/vena caval junction. Fluoroscopy visualized good placement. The needle was removed and the guidewire was clipped to the drape with a hemostat. Further local anesthetic was infiltrated in the soft tissues of the left chest wall and a #15 blade was used to make a horizontal skin incision. A subcutaneous Mediport pocket was created using Bovie cautery, dissecting down through the skin and subcutaneous tissues. Meticulous hemostasis was achieved. The Mediport was sutured in position using 3-0 vicryl suture x2 stitches. A #15 blade was used to make a small skin rashida around the guidewire insertion area. The Mediport tubing was tunneled through the subcutaneous tissues up to the needle insertion location. A dilator with a peel-away sheath was placed over the guidewire and placed centrally. After measuring the Mediport tubing was cut to length so that the tip would end at the atrial/vena caval junction. The inner cannula and the guidewire were removed, leaving the dilator sheath in place. The Mediport was flushed. The tip of the catheter was inserted through the peel-away sheath and the peel-away sheath removed in the standard fashion. The Mediport was accessed with a straight Pratt needle and dark, nonpulsatile blood was aspirated and flushed using heparinized saline to hep-lock the Mediport. Final fluoroscopy visualization showed no kink in the catheter and the tip of the Mediport tubing near the atrial/vena caval junction. There is no obvious pneumothorax. Both skin incisions were thoroughly irrigated and suctioned dry. Meticulous hemostasis noted. The dermis was approximated with 3-0 Vicryl in an interrupted fashion. Skin was closed with Dermabond. Patient was awakened from anesthesia and transferred via her cart to the recovery room in stable condition. All needle, sponge, and instrument counts were correct per the operating personnel x2 counts.
--- NOTE | 2024-06-12 11:20 | ANE.PACU2 ---
Inpatient post-anesthesia follow up: Airway intact: Yes Vital signs: Temperature 97 F Pulse Rate 64 Respiratory Rate 16 Blood Pressure 133/84 Pulse Oximetry 100 Oxygen Delivery Me thod Room Air Oxygen Flow Rate Fraction of Inspir ed Oxygen Hydration adequate: Yes Nausea and vomiting: No Pain level: 1 Mental status: Baseline
== END 2024-06-12 11:20 | disposition home or self-care (01) ==
PROVIDERS: PCP Nurse Practitioner Family; Visit Provider Surgery
DX: C50.911 Malignant neoplasm of unspecified site of right female breast (principal); Z79.899 Other long term (current) drug therapy
CPT/HCPCS: 71045; 76000; 77001; C1788; J0690; J1100; J1644; J2250; J2704; J3010

== ENCOUNTER 2024-06-20 10:00 | Oncology outpatient (recurring) (ONCR) | payer BC, SELFPAY ==
[2024-05-31 16:00] LABS: Basophils # 0.1 10^3/uL (0.0-0.1); Basophils % 0.7 %; Eosinophils # 0.2 10^3/uL (0.0-0.8); Eosinophils % 2.1 %; Hematocrit 46.3 % (36-47); Lymphocytes # 1.7 10^3/uL (0.8-4.8); Lymphocytes % 23.4 %; Mean Corpuscular HGB Conc 32.6 g/dL (30-55); Mean Platelet Volume 10.4 fL (7.4-10.4); Monocytes # 0.7 10^3/uL (0.2-0.9); Monocytes % 10.4 %; Neutrophils # 4.45 10^3/uL (1.8-7.7); Neutrophils % 63.1 %; Nucleated Red Blood Cells % 0 %; Platelet Count 291 10^3/cmm (157-399); Red Blood Count 5.03 10^6/uL (3.85-5.65); Red Cell Distribution Width 12.9 % (12.1-15.1); White Blood Count 7.05 10^3/uL (3.29-11.43)
[2024-05-31 16:36] LABS: Alanine Aminotransferase 27 U/L (0-33); Albumin Level 4.2 g/dL (3.5-5.2); Alkaline Phosphatase 71 U/L (35-105); Anion Gap 13.2 (5-19); Aspartate Amino Transferase 23 U/L (0-32); Blood Urea Nitrogen 22 mg/dL (6-20); CA 15-3 24.2 U/mL (0-25); Calcium 9.7 mg/dL (8.5-10.5); Carbon Dioxide 28 mmol/L (22-29); Chloride 105 mmol/L (98-107); Creatinine Clr Calc Pharmacy 66.8802; Follicle Stimulating Hormone 125.6 mIU/mL; Globulin 2.7 g/dL (1.3-4.6); Glucose 129 mg/dL (65-115); Lactate Dehydrogenase 204 U/L (135-214); Luteinizing Hormone 64.3 mIU/mL (0.5-41.7); Osmolality Calculated 299 mOsm/kg (285-295); Potassium 4.2 mmol/L (3.5-5.1); Sodium 142 mmol/L (136-145); Total Protein 6.9 g/dL (6.6-8.7)
[2024-06-06 16:40] LABS: Estrogens Total 30 pg/mL
[2024-06-20 10:57] LABS: Basophils # 0.1 10^3/uL (0.0-0.1); Basophils % 0.9 %; Eosinophils # 0.9 10^3/uL (0.0-0.8); Eosinophils % 10.8 %; Hematocrit 42.5 % (36-47); Lymphocytes # 1.7 10^3/uL (0.8-4.8); Lymphocytes % 20.6 %; Mean Corpuscular HGB Conc 33.6 g/dL (30-55); Mean Corpuscular Hemoglobin 30.7 pg (27-33); Mean Corpuscular Volume 91.2 fl (85-98); Mean Platelet Volume 10.2 fL (7.4-10.4); Monocytes % 11.8 %; Neutrophils # 4.53 10^3/uL (1.8-7.7); Neutrophils % 55.5 %; Nucleated Red Blood Cells % 0 %; Platelet Count 247 10^3/cmm (157-399); Red Blood Count 4.66 10^6/uL (3.85-5.65); Red Cell Distribution Width 12.8 % (12.1-15.1); White Blood Count 8.15 10^3/uL (3.29-11.43)
[2024-06-20 11:33] LABS: Alanine Aminotransferase 34 U/L (0-33); Albumin Level 3.8 g/dL (3.5-5.2); Alkaline Phosphatase 70 U/L (35-105); Anion Gap 12.2 (5-19); Aspartate Amino Transferase 27 U/L (0-32); Blood Urea Nitrogen 21 mg/dL (6-20); Calcium 9.5 mg/dL (8.5-10.5); Carbon Dioxide 26 mmol/L (22-29); Chloride 109 mmol/L (98-107); Creatinine Clr Calc Pharmacy 54.8501; Globulin 2.2 g/dL (1.3-4.6); Glomerular Filtration Rate 52.4 mL/min (90-130); Glucose 96 mg/dL (65-115); Osmolality Calculated 299 mOsm/kg (285-295); Potassium 4.2 mmol/L (3.5-5.1); Sodium 143 mmol/L (136-145); Thyroid Stimulating Hormone 1.13 uIU/mL (0.27-4.20); Total Bilirubin 0.9 mg/dL (0.15-1.2)
[2024-06-20] MEDS: sodium chloride 0.9% 250 ML 75 ML IV (12:28)
[2024-06-20] MEDS: acetaminophen 325 mg Tablet 650 MG PO (12:32)
[2024-06-20] MEDS: famotidine 20 mg/2 mL INJ IVP (12:33)
[2024-06-20] MEDS: diphenhydrAMINE 50 mg/mL SDV 1mL 25 MG IVP ×2 (12:40→15:11)
[2024-06-20] MEDS: palonosetron 0.25 mg/5 mL SDV IVP (12:41)
[2024-06-20] MEDS: dexamethasone 20 MG in sodium chloride 0.9% 50 ML 188 MG IV (12:45)
[2024-06-20] MEDS: pembrolizumab 200 MG in sodium chloride 0.9% 250 ML 516 MG IV (13:19)
[2024-06-20] MEDS: [UNRECOGNIZED DRUG - REMARK] 272 MG IV (14:00)
[2024-06-20 15:17] VITALS: BP 158/93; PULSE 75; RESP 18; TEMP 36.6; O2SAT 96
--- NOTE | 2024-06-20 15:22 | PC.NURSE ---
15:01pm patient complained of slight itching in her neck and left breast with increased reddness and itching. Pacpatrick sopped and Isabela Cancino [employer]PERVIS[employer] notified with the new order for IV Benadryl 25mg which was given with no further itching or rash noted. iv Paclitaxel resumed with no further issues noted.vidya
[2024-06-20] MEDS: CARBOplatin 120 MG in sodium chloride 0.9% 500 ML 512 MG IV (15:31)
[2024-06-20 16:26] VITALS: BP 159/86; PULSE 78; RESP 18; TEMP 36.4; O2SAT 97
== END 2024-06-22 23:59 | disposition home or self-care (01) ==
PROVIDERS: Internal Medicine; PCP Nurse Practitioner Family; Visit Provider Nurse Practitioner
DX: Z51.11 Encounter for antineoplastic chemotherapy (principal); Z51.12 Encounter for antineoplastic immunotherapy; C50.411 Malignant neoplasm of upper-outer quadrant of right female breast; Z17.1 Estrogen receptor negative status [ER-]; Z79.899 Other long term (current) drug therapy; Z79.52 Long term (current) use of systemic steroids
CPT/HCPCS: 36415; 80053; 82672; 83001; 83002; 83615; 84443; 85025; 86300; 96375; 96413; 96417; A4222; J1100; J1200; J2469; J3490; J7040; J7050; J9045; J9267; J9271

== ENCOUNTER 2024-07-19 08:00 | Oncology outpatient (recurring) (ONCR) | payer BC, SELFPAY ==
[2024-06-28 10:36] LABS: Basophils % 0.4 %; Eosinophils % 0.2 %; Hematocrit 40.5 % (36-47); Lymphocytes # 1.5 10^3/uL (0.8-4.8); Lymphocytes % 13.8 %; Mean Corpuscular HGB Conc 33.1 g/dL (30-55); Mean Corpuscular Hemoglobin 30.5 pg (27-33); Mean Corpuscular Volume 92.3 fl (85-98); Mean Platelet Volume 10.2 fL (7.4-10.4); Monocytes # 0.5 10^3/uL (0.2-0.9); Monocytes % 4.5 %; Neutrophils % 80.4 %; Nucleated Red Blood Cells % 0 %; Platelet Count 309 10^3/cmm (157-399); Red Blood Count 4.39 10^6/uL (3.85-5.65); Red Cell Distribution Width 12.6 % (12.1-15.1); White Blood Count 10.69 10^3/uL (3.29-11.43)
[2024-06-28 10:55] LABS: Alanine Aminotransferase 27 U/L (0-33); Alkaline Phosphatase 72 U/L (35-105); Anion Gap 13.3 (5-19); Aspartate Amino Transferase 20 U/L (0-32); Blood Urea Nitrogen 23 mg/dL (6-20); Calcium 9.4 mg/dL (8.5-10.5); Carbon Dioxide 25 mmol/L (22-29); Chloride 106 mmol/L (98-107); Globulin 2.4 g/dL (1.3-4.6); Glucose 109 mg/dL (65-115); Osmolality Calculated 294 mOsm/kg (285-295); Potassium 4.3 mmol/L (3.5-5.1); Sodium 140 mmol/L (136-145); Total Bilirubin 0.4 mg/dL (0.15-1.2); Total Protein 6.4 g/dL (6.6-8.7)
[2024-06-28] MEDS: sodium chloride 0.9% 250 ML 75 ML IV (12:29)
[2024-06-28] MEDS: dexamethasone 20 MG in sodium chloride 0.9% 50 ML 188 MG IV ×2 (12:30→12:55)
[2024-06-28] MEDS: acetaminophen 325 mg Tablet 650 MG PO (12:31)
[2024-06-28] MEDS: famotidine 20 mg/2 mL INJ IVP (12:57)
[2024-06-28] MEDS: palonosetron 0.25 mg/5 mL SDV IVP (12:59)
[2024-06-28] MEDS: diphenhydrAMINE 50 mg/mL SDV 1mL 25 MG IVP (13:05)
[2024-06-28] MEDS: [UNRECOGNIZED DRUG - REMARK] 272 MG IV (13:33)
[2024-06-28] MEDS: CARBOplatin 120 MG in sodium chloride 0.9% 500 ML 1024 MG IV (14:57)
[2024-06-28 16:05] VITALS: BP 152/83; PULSE 74; RESP 18; TEMP 36.6; O2SAT 97
[2024-07-05 10:10] LABS: Basophils # 0.1 10^3/uL (0.0-0.1); Basophils % 1.5 %; Eosinophils # 0.4 10^3/uL (0.0-0.8); Eosinophils % 6.4 %; Lymphocytes # 1.6 10^3/uL (0.8-4.8); Lymphocytes % 26.9 %; Mean Corpuscular HGB Conc 34.1 g/dL (30-55); Mean Corpuscular Hemoglobin 30.9 pg (27-33); Mean Corpuscular Volume 90.7 fl (85-98); Mean Platelet Volume 9.6 fL (7.4-10.4); Monocytes # 0.8 10^3/uL (0.2-0.9); Monocytes % 12.6 %; Neutrophils # 3.01 10^3/uL (1.8-7.7); Neutrophils % 50.7 %; Nucleated Red Blood Cells % 0 %; Platelet Count 327 10^3/cmm (157-399); Red Cell Distribution Width 12.5 % (12.1-15.1); White Blood Count 5.94 10^3/uL (3.29-11.43)
[2024-07-05 10:39] LABS: Alanine Aminotransferase 21 U/L (0-33); Albumin Level 3.5 g/dL (3.5-5.2); Alkaline Phosphatase 73 U/L (35-105); Anion Gap 11.2 (5-19); Aspartate Amino Transferase 20 U/L (0-32); Blood Urea Nitrogen 20 mg/dL (6-20); Calcium 9.1 mg/dL (8.5-10.5); Carbon Dioxide 28 mmol/L (22-29); Chloride 105 mmol/L (98-107); Globulin 2.4 g/dL (1.3-4.6); Glomerular Filtration Rate 52.4 mL/min (90-130); Glucose 99 mg/dL (65-115); Osmolality Calculated 293 mOsm/kg (285-295); Potassium 4.2 mmol/L (3.5-5.1); Sodium 140 mmol/L (136-145); Thyroid Stimulating Hormone 2.03 uIU/mL (0.27-4.20); Total Bilirubin 0.7 mg/dL (0.15-1.2); Total Protein 5.9 g/dL (6.6-8.7)
[2024-07-05] MEDS: sodium chloride 0.9% 1,000 ML 500 ML IV (11:44)
[2024-07-05] MEDS: diphenhydrAMINE 50 mg/mL SDV 1mL 25 MG IVP (11:45)
[2024-07-05] MEDS: palonosetron 0.25 mg/5 mL SDV IVP (11:46)
[2024-07-05] MEDS: famotidine 20 mg/2 mL INJ IVP (11:47)
[2024-07-05] MEDS: acetaminophen 325 mg Tablet 650 MG PO (11:47)
[2024-07-05] MEDS: dexamethasone 20 MG in sodium chloride 0.9% 50 ML 188 MG IV (11:51)
[2024-07-05] MEDS: [UNRECOGNIZED DRUG - REMARK] 272 MG IV (12:34)
[2024-07-05] MEDS: CARBOplatin 120 MG in sodium chloride 0.9% 500 ML 512 MG IV (13:44)
[2024-07-05 15:10] VITALS: BP 138/84; PULSE 90; RESP 18; TEMP 36.7; O2SAT 97
[2024-07-05 16:41] LABS: 25 Hydroxy Vitamin D 40 ng/mL (30-100)
[2024-07-12 09:27] LABS: Basophils # 0.1 10^3/uL (0.0-0.1); Basophils % 1.3 %; Eosinophils # 0.2 10^3/uL (0.0-0.8); Eosinophils % 4.3 %; Lymphocytes # 1.1 10^3/uL (0.8-4.8); Lymphocytes % 23.4 %; Mean Corpuscular HGB Conc 33.5 g/dL (30-55); Mean Corpuscular Hemoglobin 30.9 pg (27-33); Mean Corpuscular Volume 92.2 fl (85-98); Mean Platelet Volume 9.9 fL (7.4-10.4); Monocytes # 0.5 10^3/uL (0.2-0.9); Monocytes % 9.7 %; Neutrophils # 2.81 10^3/uL (1.8-7.7); Neutrophils % 60.2 %; Nucleated Red Blood Cells % 0 %; Platelet Count 282 10^3/cmm (157-399); Red Blood Count 4.34 10^6/uL (3.85-5.65); Red Cell Distribution Width 13.1 % (12.1-15.1); White Blood Count 4.66 10^3/uL (3.29-11.43)
[2024-07-12 09:47] LABS: Alanine Aminotransferase 37 U/L (0-33); Alkaline Phosphatase 68 U/L (35-105); Anion Gap 16.1 (5-19); Aspartate Amino Transferase 27 U/L (0-32); Blood Urea Nitrogen 27 mg/dL (6-20); Calcium 9.3 mg/dL (8.5-10.5); Carbon Dioxide 24 mmol/L (22-29); Chloride 106 mmol/L (98-107); Globulin 2.3 g/dL (1.3-4.6); Glucose 104 mg/dL (65-115); Lactate Dehydrogenase 202 U/L (135-214); Osmolality Calculated 299 mOsm/kg (285-295); Potassium 4.1 mmol/L (3.5-5.1); Sodium 142 mmol/L (136-145); Total Bilirubin 0.7 mg/dL (0.15-1.2); Total Protein 6.3 g/dL (6.6-8.7)
[2024-07-12] MEDS: sodium chloride 0.9% 1,000 ML 500 ML IV (10:20)
[2024-07-12] MEDS: acetaminophen 325 mg Tablet 650 MG PO (10:38)
[2024-07-12] MEDS: diphenhydrAMINE 50 mg/mL SDV 1mL 25 MG IVP (10:39)
[2024-07-12] MEDS: famotidine 20 mg/2 mL INJ IVP (10:44)
[2024-07-12] MEDS: palonosetron 0.25 mg/5 mL SDV IVP (10:48)
[2024-07-12] MEDS: dexamethasone 20 MG in sodium chloride 0.9% 50 ML 188 MG IV (10:52)
[2024-07-12] MEDS: pembrolizumab 200 MG in sodium chloride 0.9% 250 ML 516 MG IV (11:17)
[2024-07-12] MEDS: [UNRECOGNIZED DRUG - REMARK] 272 MG IV (11:52)
[2024-07-12] MEDS: sodium chloride 0.9% 250 ML 75 ML IV (12:25)
[2024-07-12] MEDS: CARBOplatin 140 MG in sodium chloride 0.9% 500 ML 514 MG IV (13:12)
[2024-07-12 14:20] VITALS: BP 124/78; PULSE 74; RESP 18; TEMP 36.4; O2SAT 98
[2024-07-19 08:33] LABS: Basophils % 1.1 %; Eosinophils # 0.1 10^3/uL (0.0-0.8); Eosinophils % 1.9 %; Hematocrit 35.9 % (36-47); Lymphocytes % 26.6 %; Mean Corpuscular HGB Conc 33.4 g/dL (30-55); Mean Corpuscular Hemoglobin 30.2 pg (27-33); Mean Corpuscular Volume 90.4 fl (85-98); Monocytes # 0.4 10^3/uL (0.2-0.9); Monocytes % 9.9 %; Neutrophils # 2.16 10^3/uL (1.8-7.7); Neutrophils % 59.1 %; Nucleated Red Blood Cells % 0 %; Platelet Count 233 10^3/cmm (157-399); Red Blood Count 3.97 10^6/uL (3.85-5.65); Red Cell Distribution Width 13.2 % (12.1-15.1); White Blood Count 3.65 10^3/uL (3.29-11.43)
[2024-07-19 08:55] LABS: Alanine Aminotransferase 28 U/L (0-33); Alkaline Phosphatase 68 U/L (35-105); Anion Gap 14.8 (5-19); Aspartate Amino Transferase 19 U/L (0-32); Blood Urea Nitrogen 26 mg/dL (6-20); Calcium 9.3 mg/dL (8.5-10.5); Carbon Dioxide 24 mmol/L (22-29); Chloride 106 mmol/L (98-107); Globulin 2.4 g/dL (1.3-4.6); Glomerular Filtration Rate 75.6 mL/min (90-130); Glucose 98 mg/dL (65-115); Osmolality Calculated 297 mOsm/kg (285-295); Potassium 3.8 mmol/L (3.5-5.1); Sodium 141 mmol/L (136-145); Total Bilirubin 0.7 mg/dL (0.15-1.2); Total Protein 6.4 g/dL (6.6-8.7)
[2024-07-19] MEDS: sodium chloride 0.9% 1,000 ML 500 ML IV (10:06)
[2024-07-19] MEDS: dexamethasone 20 MG in sodium chloride 0.9% 50 ML 188 MG IV (10:07)
[2024-07-19 10:31] LABS: Magnesium 1.9 mg/dL (1.7-2.3); Phosphorus 3.7 mg/dL (2.5-4.5)
[2024-07-19] MEDS: acetaminophen 325 mg Tablet 650 MG PO (10:36)
[2024-07-19] MEDS: diphenhydrAMINE 50 mg/mL SDV 1mL 25 MG IVP (10:37)
[2024-07-19] MEDS: palonosetron 0.25 mg/5 mL SDV IVP (10:38)
[2024-07-19] MEDS: famotidine 20 mg/2 mL INJ IVP (10:38)
[2024-07-19] MEDS: [UNRECOGNIZED DRUG - REMARK] 272 MG IV (11:26)
[2024-07-19] MEDS: sodium chloride 0.9% 250 ML 75 ML IV (12:22)
[2024-07-19] MEDS: CARBOplatin 140 MG in sodium chloride 0.9% 500 ML 514 MG IV (12:34)
[2024-07-19 13:35] VITALS: BP 124/78; PULSE 74; RESP 18; TEMP 36.4; O2SAT 98
== END 2024-07-23 23:59 | disposition home or self-care (01) ==
PROVIDERS: Nurse Practitioner; PCP Nurse Practitioner Family; Visit Provider Internal Medicine
DX: Z53.9 Procedure and treatment not carried out, unspecified reason; Z51.12 Encounter for antineoplastic immunotherapy; C50.411 Malignant neoplasm of upper-outer quadrant of right female breast; Z17.1 Estrogen receptor negative status [ER-]; Z79.899 Other long term (current) drug therapy; Z79.52 Long term (current) use of systemic steroids
CPT/HCPCS: 80053; 82306; 83615; 83735; 84100; 84443; 85025; 96360; 96361; 96367; 96368; 96374; 96375; 96413; 96417; A4222; J1100; J1200; J2469; J3490; J7030; J7040; J7050; J9045; J9267; J9271; J9999

== ENCOUNTER 2024-08-20 14:00 | Oncology outpatient (recurring) (ONCR) | payer BC, SELFPAY ==
[2024-07-26 08:19] LABS: Basophils % 0.7 %; Eosinophils % 0.4 %; Hematocrit 35.8 % (36-47); Lymphocytes % 36.6 %; Mean Corpuscular HGB Conc 33.5 g/dL (30-55); Mean Corpuscular Hemoglobin 30.7 pg (27-33); Mean Corpuscular Volume 91.6 fl (85-98); Mean Platelet Volume 9.3 fL (7.4-10.4); Monocytes # 0.5 10^3/uL (0.2-0.9); Monocytes % 8.4 %; Neutrophils # 2.75 10^3/uL (1.8-7.7); Neutrophils % 51.5 %; Nucleated Red Blood Cells % 0 %; Platelet Count 209 10^3/cmm (157-399); Red Blood Count 3.91 10^6/uL (3.85-5.65); Red Cell Distribution Width 14.2 % (12.1-15.1); White Blood Count 5.35 10^3/uL (3.29-11.43)
[2024-07-26 08:39] LABS: Alanine Aminotransferase 18 U/L (0-33); Alkaline Phosphatase 61 U/L (35-105); Anion Gap 12.1 (5-19); Aspartate Amino Transferase 16 U/L (0-32); Blood Urea Nitrogen 24 mg/dL (6-20); Calcium 8.9 mg/dL (8.5-10.5); Carbon Dioxide 26 mmol/L (22-29); Chloride 106 mmol/L (98-107); Creatinine Clr Calc Pharmacy 60.7163; Globulin 2.3 g/dL (1.3-4.6); Glomerular Filtration Rate 58.5 mL/min (90-130); Glucose 94 mg/dL (65-115); Lactate Dehydrogenase 194 U/L (135-214); Osmolality Calculated 294 mOsm/kg (285-295); Potassium 4.1 mmol/L (3.5-5.1); Sodium 140 mmol/L (136-145); Total Bilirubin 1.2 mg/dL (0.15-1.2); Total Protein 6.3 g/dL (6.6-8.7)
[2024-07-26] MEDS: dexamethasone 20 MG in sodium chloride 0.9% 50 ML 188 MG IV (10:07)
[2024-07-26] MEDS: sodium chloride 0.9% 1,000 ML 500 ML IV (10:07)
[2024-07-26] MEDS: acetaminophen 325 mg Tablet 650 MG PO (10:08)
[2024-07-26] MEDS: famotidine 20 mg/2 mL INJ IVP (10:16)
[2024-07-26] MEDS: palonosetron 0.25 mg/5 mL SDV IVP (10:21)
[2024-07-26] MEDS: diphenhydrAMINE 50 mg/mL SDV 1mL 25 MG IVP (10:35)
[2024-07-26] MEDS: [UNRECOGNIZED DRUG - REMARK] 272 MG IV (11:06)
[2024-07-26] MEDS: sodium chloride 0.9% 250 ML 75 ML IV (12:00)
[2024-07-26] MEDS: CARBOplatin 140 MG in sodium chloride 0.9% 500 ML 514 MG IV (12:27)
[2024-07-26 13:30] VITALS: BP 148/84; PULSE 84; RESP 18; TEMP 36.6; O2SAT 98
[2024-08-02 08:06] LABS: Basophils # 0.1 10^3/uL (0.0-0.1); Basophils % 1.2 %; Eosinophils # 0.1 10^3/uL (0.0-0.8); Eosinophils % 1.2 %; Hematocrit 34.7 % (36-47); Lymphocytes # 1.6 10^3/uL (0.8-4.8); Lymphocytes % 39.7 %; Mean Corpuscular HGB Conc 33.1 g/dL (30-55); Mean Corpuscular Hemoglobin 31.1 pg (27-33); Mean Corpuscular Volume 93.8 fl (85-98); Mean Platelet Volume 9.3 fL (7.4-10.4); Monocytes # 0.4 10^3/uL (0.2-0.9); Monocytes % 10.8 %; Neutrophils # 1.85 10^3/uL (1.8-7.7); Neutrophils % 45.6 %; Nucleated Red Blood Cells % 0 %; Platelet Count 190 10^3/cmm (157-399); Red Cell Distribution Width 15.2 % (12.1-15.1); White Blood Count 4.06 10^3/uL (3.29-11.43)
[2024-08-02 08:36] LABS: Alanine Aminotransferase 18 U/L (0-33); Albumin Level 3.8 g/dL (3.5-5.2); Alkaline Phosphatase 59 U/L (35-105); Anion Gap 13.8 (5-19); Aspartate Amino Transferase 16 U/L (0-32); Blood Urea Nitrogen 26 mg/dL (6-20); Calcium 8.9 mg/dL (8.5-10.5); Carbon Dioxide 23 mmol/L (22-29); Chloride 107 mmol/L (98-107); Creatinine Clr Calc Pharmacy 60.7163; Globulin 2.3 g/dL (1.3-4.6); Glomerular Filtration Rate 58.5 mL/min (90-130); Glucose 104 mg/dL (65-115); Osmolality Calculated 295 mOsm/kg (285-295); Potassium 3.8 mmol/L (3.5-5.1); Sodium 140 mmol/L (136-145); Thyroid Stimulating Hormone 1.02 uIU/mL (0.27-4.20); Total Bilirubin 1.1 mg/dL (0.15-1.2); Total Protein 6.1 g/dL (6.6-8.7)
[2024-08-02] MEDS: dexamethasone 20 MG in sodium chloride 0.9% 50 ML 188 MG IV (09:59)
[2024-08-02] MEDS: sodium chloride 0.9% 1,000 ML 500 ML IV (10:00)
[2024-08-02] MEDS: palonosetron 0.25 mg/5 mL SDV IVP (10:02)
[2024-08-02] MEDS: famotidine 20 mg/2 mL INJ IVP (10:04)
[2024-08-02] MEDS: diphenhydrAMINE 50 mg/mL SDV 1mL 25 MG IVP (10:17)
[2024-08-02] MEDS: acetaminophen 325 mg Tablet 650 MG PO (10:21)
[2024-08-02] MEDS: pembrolizumab 200 MG in sodium chloride 0.9% 250 ML 516 MG IV (10:40)
[2024-08-02] MEDS: [UNRECOGNIZED DRUG - REMARK] 272 MG IV (11:33)
[2024-08-02] MEDS: CARBOplatin 130 MG in sodium chloride 0.9% 500 ML 513 MG IV (12:46)
[2024-08-02] MEDS: sodium chloride 0.9% 250 ML 75 ML IV (12:50)
[2024-08-02 14:00] VITALS: BP 128/90; PULSE 84; RESP 16; TEMP 36.1; O2SAT 99
[2024-08-09 08:04] LABS: Basophils % 1.1 %; Eosinophils # 0.1 10^3/uL (0.0-0.8); Eosinophils % 1.6 %; Hematocrit 33.2 % (36-47); Lymphocytes # 1.7 10^3/uL (0.8-4.8); Mean Corpuscular HGB Conc 33.4 g/dL (30-55); Mean Corpuscular Hemoglobin 31.4 pg (27-33); Mean Corpuscular Volume 94.1 fl (85-98); Mean Platelet Volume 9.5 fL (7.4-10.4); Monocytes # 0.4 10^3/uL (0.2-0.9); Monocytes % 9.8 %; Neutrophils % 42.4 %; Nucleated Red Blood Cells % 0 %; Platelet Count 158 10^3/cmm (157-399); Red Blood Count 3.53 10^6/uL (3.85-5.65); Red Cell Distribution Width 15.6 % (12.1-15.1); White Blood Count 3.77 10^3/uL (3.29-11.43)
[2024-08-09 08:29] LABS: Alanine Aminotransferase 18 U/L (0-33); Albumin Level 3.8 g/dL (3.5-5.2); Alkaline Phosphatase 59 U/L (35-105); Anion Gap 14.8 (5-19); Aspartate Amino Transferase 17 U/L (0-32); Blood Urea Nitrogen 20 mg/dL (6-20); Carbon Dioxide 25 mmol/L (22-29); Chloride 104 mmol/L (98-107); Creatinine Clr Calc Pharmacy 61.0975; Globulin 2.4 g/dL (1.3-4.6); Glomerular Filtration Rate 58.5 mL/min (90-130); Glucose 91 mg/dL (65-115); Osmolality Calculated 292 mOsm/kg (285-295); Potassium 3.8 mmol/L (3.5-5.1); Sodium 140 mmol/L (136-145); Total Bilirubin 0.9 mg/dL (0.15-1.2); Total Protein 6.2 g/dL (6.6-8.7)
[2024-08-09] MEDS: dexamethasone 20 MG in sodium chloride 0.9% 50 ML 188 MG IV (09:18)
[2024-08-09] MEDS: sodium chloride 0.9% 1,000 ML 500 ML IV (09:18)
[2024-08-09] MEDS: acetaminophen 325 mg Tablet 650 MG PO (09:19)
[2024-08-09] MEDS: diphenhydrAMINE 50 mg/mL SDV 1mL 25 MG IVP (09:26)
[2024-08-09] MEDS: famotidine 20 mg/2 mL INJ IVP (09:29)
[2024-08-09] MEDS: palonosetron 0.25 mg/5 mL SDV IVP (09:32)
[2024-08-09] MEDS: [UNRECOGNIZED DRUG - REMARK] 272 MG IV (10:14)
[2024-08-09] MEDS: CARBOplatin 130 MG in sodium chloride 0.9% 500 ML 513 MG IV (11:38)
[2024-08-09 12:45] VITALS: BP 163/88; PULSE 88; RESP 16; TEMP 36.6; O2SAT 99
[2024-08-16 07:55] LABS: Basophils % 1.2 %; Eosinophils # 0.1 10^3/uL (0.0-0.8); Eosinophils % 3.1 %; Hematocrit 29.8 % (36-47); Lymphocytes # 1.2 10^3/uL (0.8-4.8); Lymphocytes % 46.9 %; Mean Corpuscular HGB Conc 33.6 g/dL (30-55); Mean Corpuscular Hemoglobin 32.5 pg (27-33); Mean Corpuscular Volume 96.8 fl (85-98); Mean Platelet Volume 9.9 fL (7.4-10.4); Monocytes # 0.3 10^3/uL (0.2-0.9); Monocytes % 10.2 %; Neutrophils % 37.4 %; Nucleated Red Blood Cells % 0 %; Platelet Count 142 10^3/cmm (157-399); Red Blood Count 3.08 10^6/uL (3.85-5.65); Red Cell Distribution Width 16.3 % (12.1-15.1); White Blood Count 2.56 10^3/uL (3.29-11.43)
[2024-08-16 08:22] LABS: Alanine Aminotransferase 19 U/L (0-33); Alkaline Phosphatase 54 U/L (35-105); Aspartate Amino Transferase 23 U/L (0-32); Blood Urea Nitrogen 17 mg/dL (6-20); Calcium 8.7 mg/dL (8.5-10.5); Carbon Dioxide 26 mmol/L (22-29); Chloride 109 mmol/L (98-107); Creatinine Clr Calc Pharmacy 76.4464; Globulin 2.1 g/dL (1.3-4.6); Glomerular Filtration Rate 75.6 mL/min (90-130); Glucose 96 mg/dL (65-115); Osmolality Calculated 297 mOsm/kg (285-295); Sodium 143 mmol/L (136-145); Total Bilirubin 1.2 mg/dL (0.15-1.2); Total Protein 6.1 g/dL (6.6-8.7)
[2024-08-16 08:52] LABS: Neutrophils # 0.96 10^3/uL (1.8-7.7)
[2024-08-16] MEDS: dexamethasone 20 MG in sodium chloride 0.9% 50 ML 188 MG IV (10:08)
[2024-08-16] MEDS: sodium chloride 0.9% 1,000 ML 500 ML IV (10:09)
[2024-08-16] MEDS: acetaminophen 325 mg Tablet 650 MG PO (10:13)
[2024-08-16] MEDS: diphenhydrAMINE 50 mg/mL SDV 1mL 25 MG IVP (10:14)
[2024-08-16] MEDS: famotidine 20 mg/2 mL INJ IVP (10:16)
[2024-08-16] MEDS: palonosetron 0.25 mg/5 mL SDV IVP (10:19)
[2024-08-16] MEDS: [UNRECOGNIZED DRUG - REMARK] 272 MG IV (11:04)
[2024-08-16] MEDS: CARBOplatin 130 MG in sodium chloride 0.9% 500 ML 513 MG IV (12:26)
[2024-08-16 13:50] VITALS: BP 127/84; PULSE 84; RESP 16; TEMP 36.6; O2SAT 98
[2024-08-20] MEDS: sodium chloride 0.9% 1,000 ML 999 ML IV (14:20)
== END 2024-08-22 23:59 | disposition home or self-care (01) ==
PROVIDERS: Internal Medicine; Nurse Practitioner Family; PCP Nurse Practitioner Family; Visit Provider Internal Medicine Medical Oncology
DX: Z53.9 Procedure and treatment not carried out, unspecified reason; C50.911 Malignant neoplasm of unspecified site of right female breast; Z79.899 Other long term (current) drug therapy
CPT/HCPCS: 80053; 83615; 84443; 85025; 96360; 96361; 96367; 96368; 96375; 96413; 96415; 96417; A4222; J1100; J1200; J2469; J3490; J7030; J7040; J7050; J9045; J9267; J9271; J9999

== ENCOUNTER 2024-08-30 11:46 | Outpatient (CLI) | payer BC, SELFPAY ==
--- NOTE | 2024-08-30 11:49 | XR_ITS ---
WS: [id number] XR thoracic spine 3V* [id number] REASON FOR EXAM: worsening bilateral leg pain; immunotherapy FINDINGS: Normal thoracic spine curvatures. Normal thoracic vertebrae. Minimal narrowing of the disc spaces and minimal osteophytosis in the mid and lower thoracic spine. XR/XR thoracic spine 3V* [id number] IMPRESSION: Minimal degenerative spondylosis with no other significant abnormality.
--- NOTE | 2024-08-30 11:49 | XR_ITS ---
WS: [id number] XR lumbar spine 1V port [id number] REASON FOR EXAM: worsening bilateral leg pain and neuropathy FINDINGS: Single AP view of the lumbar spine demonstrates no significant rotatory scoliosis. No focal vertebral body abnormality is identified. Intervertebral disc spaces appear intact and relatively well preserved. XR/XR lumbar spine 1V port [id number] IMPRESSION: No abnormality on a single view of the lumbar spine as above.
== END 2024-08-30 11:47 | disposition home or self-care (01) ==
PROVIDERS: PCP Nurse Practitioner Family; Visit Provider Internal Medicine
DX: C50.911 Malignant neoplasm of unspecified site of right female breast (principal); M79.606 Pain in leg, unspecified; G62.9 Polyneuropathy, unspecified
CPT/HCPCS: 72020; 72072

== ENCOUNTER 2024-09-13 08:16 | Oncology outpatient (recurring) (ONCR) | payer BC, SELFPAY ==
[2024-08-23 08:06] LABS: Basophils % 1.2 %; Eosinophils # 0.1 10^3/uL (0.0-0.8); Eosinophils % 2.5 %; Hematocrit 29.3 % (36-47); Lymphocytes # 1.1 10^3/uL (0.8-4.8); Lymphocytes % 43.8 %; Mean Corpuscular HGB Conc 34.5 g/dL (30-55); Mean Corpuscular Volume 95.8 fl (85-98); Mean Platelet Volume 9.4 fL (7.4-10.4); Monocytes # 0.2 10^3/uL (0.2-0.9); Monocytes % 9.9 %; Neutrophils % 40.5 %; Nucleated Red Blood Cells % 0 %; Platelet Count 195 10^3/cmm (157-399); Red Blood Count 3.06 10^6/uL (3.85-5.65); Red Cell Distribution Width 16.5 % (12.1-15.1); White Blood Count 2.42 10^3/uL (3.29-11.43)
[2024-08-23 08:35] LABS: Neutrophils # 0.98 10^3/uL (1.8-7.7)
[2024-08-23 08:44] LABS: Alanine Aminotransferase 95 U/L (0-33); Albumin Level 3.9 g/dL (3.5-5.2); Alkaline Phosphatase 64 U/L (35-105); Anion Gap 14.8 (5-19); Aspartate Amino Transferase 32 U/L (0-32); Blood Urea Nitrogen 21 mg/dL (6-20); Calcium 9.1 mg/dL (8.5-10.5); Carbon Dioxide 23 mmol/L (22-29); Chloride 105 mmol/L (98-107); Creatinine Clr Calc Pharmacy 76.6103; Ferritin 369 ng/mL (15-150); Globulin 2.4 g/dL (1.3-4.6); Glomerular Filtration Rate 75.6 mL/min (90-130); Glucose 121 mg/dL (65-115); Iron 60 ug/dL (37-145); Lactate Dehydrogenase 238 U/L (135-214); Magnesium 1.9 mg/dL (1.7-2.3); Osmolality Calculated 292 mOsm/kg (285-295); Percent Saturation 24.2 % (20-50); Phosphorus 3.4 mg/dL (2.5-4.5); Potassium 3.8 mmol/L (3.5-5.1); Sodium 139 mmol/L (136-145); Thyroid Stimulating Hormone 0.93 uIU/mL (0.27-4.20); Total Bilirubin 0.9 mg/dL (0.15-1.2); Total Iron Binding Capacity 247 mcg/dl; Total Protein 6.3 g/dL (6.6-8.7); Unsaturated Iron Binding 187 ug/dL (112-347)
[2024-08-23 08:58] LABS: Vitamin B12 > 2000 pg/mL (232-1245)
[2024-08-23] MEDS: sodium chloride 0.9% 1,000 ML 75 ML IV (09:24)
[2024-08-23] MEDS: dexamethasone 20 MG in sodium chloride 0.9% 50 ML 165 MG IV (09:31)
[2024-08-23] MEDS: acetaminophen 325 mg Tablet 650 MG PO (09:31)
[2024-08-23 09:32] LABS: Folate Level 12.2 ng/mL (4.8-37.3)
[2024-08-23] MEDS: famotidine 20 mg/2 mL INJ IVP (09:33)
[2024-08-23] MEDS: diphenhydrAMINE 50 mg/mL SDV 1mL 25 MG IVP (09:38)
[2024-08-23] MEDS: palonosetron 0.25 mg/5 mL SDV IVP (09:41)
[2024-08-23] MEDS: pembrolizumab 200 MG in sodium chloride 0.9% 250 ML 516 MG IV (10:46)
[2024-08-23] MEDS: [UNRECOGNIZED DRUG - REMARK] 272 MG IV (11:45)
[2024-08-23] MEDS: CARBOplatin 160 MG in sodium chloride 0.9% 500 ML 516 MG IV (13:00)
[2024-08-23 14:30] VITALS: BP 123/80; PULSE 100; RESP 16; TEMP 36.6; O2SAT 96
[2024-08-27 14:33] VITALS: BP 124/74; PULSE 89; RESP 17; TEMP 36.7; O2SAT 97
[2024-08-27] MEDS: sodium chloride 0.9% 1,000 ML 999 ML IV (14:37)
[2024-08-27 15:45] VITALS: BP 152/83; PULSE 86; RESP 16; TEMP 35.9; O2SAT 96
[2024-08-30 07:53] LABS: Hematocrit 25.6 % (36-47); Mean Corpuscular HGB Conc 33.6 g/dL (30-55); Mean Corpuscular Hemoglobin 32.2 pg (27-33); Mean Corpuscular Volume 95.9 fl (85-98); Mean Platelet Volume 9.4 fL (7.4-10.4); Platelet Count 242 10^3/cmm (157-399); Red Blood Count 2.67 10^6/uL (3.85-5.65); Red Cell Distribution Width 16.6 % (12.1-15.1); White Blood Count 2.18 10^3/uL (3.29-11.43)
[2024-08-30 08:17] LABS: Alanine Aminotransferase 160 U/L (0-33); Albumin Level 3.5 g/dL (3.5-5.2); Alkaline Phosphatase 70 U/L (35-105); Anion Gap 16.9 (5-19); Aspartate Amino Transferase 42 U/L (0-32); Blood Urea Nitrogen 12 mg/dL (6-20); Carbon Dioxide 22 mmol/L (22-29); Chloride 106 mmol/L (98-107); Creatinine Clr Calc Pharmacy 68.0981; Globulin 2.5 g/dL (1.3-4.6); Glucose 133 mg/dL (65-115); Magnesium 1.9 mg/dL (1.7-2.3); Osmolality Calculated 294 mOsm/kg (285-295); Potassium 3.9 mmol/L (3.5-5.1); Sodium 141 mmol/L (136-145); Total Bilirubin 0.8 mg/dL (0.15-1.2)
[2024-08-30 08:56] LABS: Absolute Segmented Neutrophil 0.9 10/cmm (1.6-7.1); Band Neutrophils Absolute 0.1 10^3/cmm (0.0-1.2); Eosinophils 0 %; Lymphocytes 42 %; Platelet Estimate Normal (Normal); Segmented Neutrophils 40 %; Slide Review Slide Review Perform; Total Cells Counted 100 (0-100)
[2024-08-30] MEDS: ondansetron 2 mg/ML SDV 2 mL 8 MG IVP (09:56)
[2024-08-30] MEDS: dexamethasone 4 mg/mL INJ 12 MG IV (09:56)
[2024-08-30] MEDS: sodium chloride 0.9% 1,000 ML 999 ML IV (09:56)
[2024-08-30] MEDS: HYDROcodone-acetaminophen 5-325 mg Tablet PO (10:19)
[2024-08-30 10:20] VITALS: RESP 16
[2024-08-30] MEDS: morphine 4 mg/mL SDV 1 mL 2 MG IVP (10:20)
[2024-08-30 11:20] VITALS: RESP 16
[2024-08-30] MEDS: morphine 4 mg/mL SDV 1 mL IVP (11:20)
[2024-08-30 11:45] VITALS: BP 144/78; PULSE 90; RESP 16; TEMP 35.5; O2SAT 98
[2024-09-03 15:29] VITALS: RESP 16
[2024-09-03] MEDS: sodium chloride 0.9% 1,000 ML 999 ML IV (15:29)
[2024-09-03] MEDS: morphine 4 mg/mL SDV 1 mL IVP (15:29)
[2024-09-03 15:30] LABS: Basophils % 0.9 %; Eosinophils % 0.6 %; Lymphocytes # 1.3 10^3/uL (0.8-4.8); Lymphocytes % 36.3 %; Mean Corpuscular HGB Conc 33.4 g/dL (30-55); Mean Corpuscular Hemoglobin 32.6 pg (27-33); Mean Corpuscular Volume 97.3 fl (85-98); Mean Platelet Volume 9.1 fL (7.4-10.4); Monocytes # 0.7 10^3/uL (0.2-0.9); Monocytes % 20.3 %; Neutrophils # 1.31 10^3/uL (1.8-7.7); Neutrophils % 38.1 %; Nucleated Red Blood Cells % 0 %; Platelet Count 299 10^3/cmm (157-399); Red Blood Count 2.98 10^6/uL (3.85-5.65); Red Cell Distribution Width 17.6 % (12.1-15.1); White Blood Count 3.44 10^3/uL (3.29-11.43)
[2024-09-03 15:52] LABS: Alanine Aminotransferase 69 U/L (0-33); Albumin Level 3.8 g/dL (3.5-5.2); Alkaline Phosphatase 74 U/L (35-105); Anion Gap 16.8 (5-19); Aspartate Amino Transferase 32 U/L (0-32); Blood Urea Nitrogen 11 mg/dL (6-20); Calcium 8.9 mg/dL (8.5-10.5); Carbon Dioxide 23 mmol/L (22-29); Chloride 104 mmol/L (98-107); Creatinine Clr Calc Pharmacy 67.7404; Globulin 2.8 g/dL (1.3-4.6); Glucose 172 mg/dL (65-115); Lactate Dehydrogenase 280 U/L (135-214); Osmolality Calculated 293 mOsm/kg (285-295); Potassium 3.8 mmol/L (3.5-5.1); Sodium 140 mmol/L (136-145); Total Bilirubin 0.7 mg/dL (0.15-1.2); Total Protein 6.6 g/dL (6.6-8.7)
[2024-09-03 16:09] VITALS: BP 147/85; PULSE 85; RESP 16; TEMP 36.4; O2SAT 99
[2024-09-03 16:12] LABS: Folate Level 17.7 ng/mL (4.8-37.3)
[2024-09-03 16:16] LABS: Ferritin 609 ng/mL (15-150); Iron 69 ug/dL (37-145); Percent Saturation 28.2 % (20-50); Total Iron Binding Capacity 244 mcg/dl; Unsaturated Iron Binding 175 ug/dL (112-347)
[2024-09-03 17:02] LABS: 25 Hydroxy Vitamin D 53 ng/mL (30-100)
[2024-09-03 22:53] LABS: Vitamin B12 > 2000 pg/mL (232-1245)
--- NOTE | 2024-09-04 06:07 | USCV_ITS ---
Jana Riddle Age: 49 Gender: F : 1975 Exam Date: 09/04/2024 06:20 Ordering Phys: Santiago Bernardo MD Technologist: Exam Location: [facility] [place] Indication: high risk meds BP: 120 / 70 HR: 70 Rhythm: Sinus Technical Quality: Adequate MEASUREMENTS (Male / Female) Normal Values 2D ECHO LV Diastolic Diameter PLAX 3.4 cm 4.2 - 5.9 / 3.9 - 5.3 cm IVS Diastolic Thickness 1.3 cm 0.6 - 1.0 / 0.6 - 0.9 cm IVS Systolic Thickness 1.9 cm LVPW Diastolic Thickness 1.2 cm 0.6 - 1.0 / 0.6 - 0.9 cm LVPW Systolic Thickness 1.5 cm LVOT Diameter 2.0 cm LV Ejection Fraction 2D Teich 67.6 % LV Ejection Fraction MOD 4C 63.9 % LV Ejection Fraction MOD 2C 70.3 % LV Ejection Fraction 2C AL 71.1 % LA Diameter 3.1 cm RA Systolic Volume 4C AL 25.7 ml RA Systolic Volume 4C MOD 23.5 ml Aorta at Sinotubular Diameter 2.4 cm IVC Diameter 2.0 cm M-MODE LA Ao Ratio MM 1.3 AV Cusp Separation MM 2.0 cm DOPPLER AV Peak Velocity 124.0 cm/s LVOT Peak Velocity 86.0 cm/s AV Area Cont Eq vti 2.8 cm squared AV Area Cont Eq pk 2.2 cm squared MV Peak Velocity 114.0 cm/s MV Area PHT 4.1 cm squared Mitral E to A Ratio 1.3 TV Peak Velocity 172.0 cm/s TR Peak Velocity 211.0 cm/s TR Peak Gradient 17.8 mmHg TV Peak E Velocity 95.0 cm/s PV Peak Velocity 85.0 cm/s FINDINGS Left Ventricle Left ventricle is normal size. LV systolic function is normal with EF of 60-65%. No regional wall motion abnormalities are seen. Right Ventricle Normal in size and function Right Atrium Normal in size Left Atrium normal in size Mitral Valve Structurally normal valve. Mild mitral regurgitation Aortic Valve Structurally normal aortic valve. No significant stenosis or regurgitation Tricuspid Valve Mild tricuspid regurgitation. Pulmonary artery systolic pressure is normal Pulmonic Valve Not well visualized Pericardium Normal Aorta Normal in size IVC Appears to be normal CONCLUSIONS LV systolic function is normal with EF of 60-65%. Mild mitral regurgitation Mild tricuspid regurgitation No comparison studies are available. Adama Isaacs MD (Electronically Signed) Final Date: 09 Sep 2024 14:13 S
[2024-09-10] MEDS: sodium chloride 0.9% 1,000 ML 999 ML IV (15:02)
[2024-09-10 15:16] LABS: Basophils # 0.1 10^3/uL (0.0-0.1); Basophils % 0.8 %; Eosinophils % 0.5 %; Hematocrit 30.2 % (36-47); Lymphocytes # 1.3 10^3/uL (0.8-4.8); Lymphocytes % 19.4 %; Mean Corpuscular HGB Conc 32.5 g/dL (30-55); Mean Corpuscular Hemoglobin 32.1 pg (27-33); Mean Platelet Volume 9.7 fL (7.4-10.4); Monocytes # 1.3 10^3/uL (0.2-0.9); Monocytes % 18.8 %; Neutrophils # 3.95 10^3/uL (1.8-7.7); Neutrophils % 59.3 %; Nucleated Red Blood Cells % 0 %; Platelet Count 253 10^3/cmm (157-399); Red Blood Count 3.05 10^6/uL (3.85-5.65); Red Cell Distribution Width 15.8 % (12.1-15.1); White Blood Count 6.65 10^3/uL (3.29-11.43)
[2024-09-10 15:49] LABS: Alanine Aminotransferase 29 U/L (0-33); Albumin Level 3.7 g/dL (3.5-5.2); Alkaline Phosphatase 69 U/L (35-105); Anion Gap 15.8 (5-19); Aspartate Amino Transferase 25 U/L (0-32); Blood Urea Nitrogen 22 mg/dL (6-20); Carbon Dioxide 23 mmol/L (22-29); Chloride 103 mmol/L (98-107); Creatinine Clr Calc Pharmacy 60.9663; Globulin 2.7 g/dL (1.3-4.6); Glomerular Filtration Rate 58.5 mL/min (90-130); Glucose 167 mg/dL (65-115); Osmolality Calculated 293 mOsm/kg (285-295); Potassium 3.8 mmol/L (3.5-5.1); Sodium 138 mmol/L (136-145); Thyroid Stimulating Hormone 0.05 uIU/mL (0.27-4.20); Total Bilirubin 1.1 mg/dL (0.15-1.2); Total Protein 6.4 g/dL (6.6-8.7)
[2024-09-13 09:26] VITALS: BP 119/73; PULSE 91; RESP 17; TEMP 36.7; O2SAT 99
--- NOTE | 2024-09-13 09:27 | PC.PHAR ---
SPOKE WITH ELIS VIA PHONE REGARDING PATIENTS LAST CYCLE OF CARBO/TAXOL. ELIS THINKS SHE MAY HAVE REACTED TO TAXOL SO WOULD LIKE TO GIVE HER ABRAXANE. SINCE SHE IS A WHITE BAG, WE HAD TO WAIT FOR ABRAXANE TO COME IN. PATIENT IS HERE TODAY FOR TREATMENT AND ABRAXANE HAS ARRIVED. ELIS WILL APPROVE CARBO/ABRAXANE FOR TODAY THEN WE WILL ANTICIPATE TREATING HER AGAIN NEXT WEEK WITH CARBO/ABRAXANE IF TOLERATED. ONCE THAT'S COMPLETE, WE WILL REVIEW WITH RAMSEY OR JASE WHEN WOULD BE APPROPRIATE TO INITIATE KEYTRUDA + AC. TECHNICALLY SHE COULD HAVE KEYTRUDA TODAY BUT HER WHITE BAG IS NOT HERE. THANKS, AH
[2024-09-13 09:59] LABS: Free T4 Free Thyroxine 2.98 ng/dL (0.82-1.77); T3 Free 6.6 PG/ML (2.0-4.4)
[2024-09-13 10:37] LABS: 25 Hydroxy Vitamin D 54 ng/mL (30-100)
[2024-09-13] MEDS: dexamethasone 20 MG in sodium chloride 0.9% 50 ML 191.61 MG IV (10:58)
[2024-09-13] MEDS: sodium chloride 0.9% 250 ML 75 ML IV (10:58)
[2024-09-13] MEDS: palonosetron 0.25 mg/5 mL SDV IVP (10:59)
[2024-09-13] MEDS: famotidine 20 mg/2 mL INJ IVP (10:59)
[2024-09-13] MEDS: diphenhydrAMINE 50 mg/mL SDV 1mL 25 MG IVP (10:59)
[2024-09-13] MEDS: acetaminophen 325 mg Tablet 650 MG PO (11:00)
[2024-09-13] MEDS: FLEXIBLE CONTAINER IV (12:20)
[2024-09-13] MEDS: PACLITAXEL PROTEIN BOUND IV (12:20)
[2024-09-13] MEDS: CARBOplatin 130 MG in sodium chloride 0.9% 500 ML 513 MG IV (13:12)
[2024-09-13 14:50] VITALS: BP 124/76; PULSE 97; RESP 17; TEMP 36.4; O2SAT 98
== END 2024-09-22 23:59 | disposition home or self-care (01) ==
PROVIDERS: Nurse Practitioner; Nurse Practitioner Family; PCP Nurse Practitioner Family; Visit Provider Internal Medicine
DX: Z51.11 Encounter for antineoplastic chemotherapy (principal); C50.919 Malignant neoplasm of unspecified site of unspecified female breast; Z79.52 Long term (current) use of systemic steroids; M79.10 Myalgia, unspecified site; E55.9 Vitamin D deficiency, unspecified; R79.89 Other specified abnormal findings of blood chemistry; Z79.899 Other long term (current) drug therapy
CPT/HCPCS: 80053; 82306; 82607; 82728; 82746; 83010; 83540; 83550; 83615; 83735; 84100; 84439; 84443; 84481; 85007; 85025; 86850; 86900; 93306; 96360; 96367; 96375; 96413; 96417; A4222; J1100; J1200; J2270; J2405; J2469; J3490; J7030; J7040; J7050; J9045; J9264; J9267; J9271; J9999

== ENCOUNTER 2024-09-14 00:18 | Emergency (ER) | payer BC, SELFPAY ==
[2024-09-14 00:21] VITALS: BP 120/74; PULSE 112; RESP 16; TEMP 36.7; O2SAT 96; BMI 21.2
--- NOTE | 2024-09-14 01:37 | ED_ITS ---
HPI - Allergic Reaction 2 General: Chief complaint: Allergic Reaction Stated complaint: Fever chemo Hives Time Seen by Provider: 09/14/24 01:37 History of Present Illness: HPI narrative: Jana Riddle presents with a chemo reaction, which she reports is worse than previous episodes experienced two and three weeks ago. The patient's chief complaints include a rash, fever, scratchy throat, and bone pain. Ms. Riddle reports developing a rash that has spread to her eyes and is now everywhere. She describes having hives all over her back, though the clinician notes these appear flat rather than raised. The patient had a fever of 101.2?F earlier, which is now under control. She also complains of a scratchy throat. The patient is experiencing bone pain, primarily from her left hip to her left knee and sometimes extending to her calf. Occasionally, she experiences pain on the right side as well. Ms. Riddle mentions that morphine administered during fluid sessions only helps with the pain in her right leg. Prior to arriving at the clinic, Ms. Riddle took medications as directed by her oncologist, Dr. Conte, including methylprednisolone, Benadryl, Tylenol, and famotidine. She also took tramadol at 11 PM to help with sleep. T Related Data Home Medications ?Medication ?Instructions ?Recorded ?Confirmed albuterol sulfate 2.5 mg/3 mL 2.5 mg inhalation Q4H KY N 07/05/23 08/30/24 (0.083 %) solution for nebulization Shortness Of Breat h albuterol sulfate 90 mcg/actuation 1 puff inhalation Q 4H PRN 07/05/23 08/30/24 aerosol inhaler Shortness Of Breath atenolol 25 mg tablet 25 mg PO BID heart palpitati ons 05/31/24 08/30/24 budesonide-formoterol HFA 160 2 puff inhalation BID KY N Allergy 05/31/24 08/30/24 mcg-4.5 mcg/actuation aerosol Symptoms inhaler (Symbicort) triamcinolone acetonide 10 mg/mL 10 mg SUBCUT .[id number] s 05/31/24 08/30/24 suspension for injection (Kenalog) vit E-arza-Vvyuv ginseng-herbal 1 tab PO BID 05/31/24 08/30/24 complex no.62 75 mg tablet vitamin D3 125 mcg (5,000 1 cap PO DAILY 05/31/24 05/0 12/17 unit)-vitamin K2 180 mcg capsule (K2-D3 Max) Previous Rx's ?Medication ?Instructions ?Recorded carboplatin 10 mg/mL intravenous 170 mg (17 mL) IV ONC E #135 mL 06/06/24 solution paclitaxel 6 mg/mL 130 mg (21.6667 mL) IV ONCE #75 mL 06/06/24 concentrate,intravenous hydrocodone 7.5 mg-acetaminophen 1 tab PO Q6H PRN pain #10 tabs 06/12/24 325 mg tablet lidocaine-prilocaine 2.5 %-2.5 % 1 applic topical ONCE #4 ea 06/18/24 topical kit epinephrine 0.3 mg/0.3 mL 0.3 mg (0.3 mL) IM Q1H PRN 0 06/20/24 injection, auto-injector (EpiPen anaphylaxis #2 ea 2-Iglesia) promethazine 25 mg tablet 25 mg PO TID PRN nausea and 06/20/24 vomiting #30 tabs triamcinolone acetonide 0.1 % 1 applic topical BID #30 grams 06/20/24 topical cream ondansetron HCl 4 mg tablet 4 mg PO Q6H PRN nausea and 07/12/24 vomiting #30 tabs lorazepam 1 mg tablet 0.5 - 1 mg (0.5 - 1 x 1 mg) PO Q6H 08/16/24 PRN severe nausea #120 tabs cyclophosphamide 500 mg/mL 1,000 mg (2 mL) IV Q21D #2 mL 08/20/24 intravenous solution doxorubicin 50 mg/25 mL 100 mg (50 mL) IV Q21D #50 m L 08/20/24 intravenous solution pegfilgrastim 6 mg/0.6 mL 6 mg (0.6 mL) SUBCUT Q21D #0 .6 mL 08/20/24 (deliverable) wearable subcutaneous injector (Neulasta Onpro) hydrocodone 5 mg-acetaminophen 325 1 tab PO Q4H 5 days #30 tabs 08/30/24 mg tablet omeprazole 20 mg capsule,delayed 20 mg PO BID #60 caps 08/30/24 release paclitaxel protein-bound 100 mg 165 mg IV DIRECTED #4 ea 09/03/24 intravenous suspension (Abraxane) pembrolizumab 25 mg/mL intravenous See Rx Instructions .Route 09/06/24 solution (Keytruda) .COMPLEX #8 mL tramadol 50 mg tablet 50 mg PO Q6H PRN pain #120 t abs 09/13/24 hydromorphone 1 mg/mL oral liquid 2 mg (2 mL) PO Q6H P RN pain #56 mL 09/14/24 (Dilaudid) naloxone 3 mg/actuation nasal spray See Rx Instruction s .Route 09/14/24 .COMPLEX #2 ea Allergies Allergy/AdvReac Type Severity Reaction Status Date / Time chlorhexidine (From Allergy Unknown ALGY-Hives Verified 08/30/24 08:18 ChloraPrep Clear) isopropyl alcohol (From Allergy ALGY-Hives Verified 08/30/24 08:18 ChloraPrep Clear) yellow dye Allergy Unknown Verified 08/30/24 08:18 yellow chemo gloves Allergy Unknown Uncoded 08/30/24 08:18 Review of Systems 2 General: Reports: 10 or more systems reviewed and unremarkable except in HPI and below PFSH ED 2 PFSH: Social History (Updated 08/24/24 @ 00:08 by Taz Connelly MD) Smoking and tobacco/nicotine status: never used tobacco/nicotine Second hand smoke exposure: No Alcohol intake: never Substance/Drug Use: never Additional social history: Wants full code discussed in the presence of her sister and mother 08/23/2024 Adopted: No Caregiver/support person: No Lives independently: Yes Household members: significant other Housing: House Marital status: Number of children: 0 Highest education level completed: Associate Degree: Occupational, Technical, Vocational Program service: No Current occupational status: employed Physical Exam 2 Const: COMMON NORMALS: no acute distress, patient oriented x3, healthy appearing, alert and well nourished HENMT: COMMON NORMALS: normocephalic HEAD & SCALP: normocephalic Eye: COMMON NORMALS: EOMs intact bilaterally Neck/C-Spine: COMMON NORMALS: full ROM and supple Resp: COMMON NORMALS: normal respiratory effort, No retractions and clear to auscultation bilaterally AUSCULTATION: clear to auscultation bilaterally Cardio: COMMON NORMALS: regular rate, regular rhythm, No gallops present (Cardio) and No murmurs present (Cardio) RATE: regular rate RHYTHM: r egular rhythm GI: COMMON NORMALS: Soft to palpation and non-tender PALPATION: Yes Soft to palpation Extremity: GENERAL: Yes normal exam except as noted Neuro: COMMON NORMALS: patient oriented x3 SENSORIUM/ORIENTATION: Yes alert Skin: RASHES: rashes noted (Erythematous raised rash on her face. Flat erythematous lacy rash on her b) Course 2 Vital Signs: Vital signs: Vital Signs Temperature 98.1 F 09/14/24 00:21 Pulse Rate 99 09/14/24 04:30 Respiratory Rate 18 09/14/24 04:30 Blood Pressure 152/91 09/14/24 04:30 Pulse Oximetry 99 09/14/24 04:30 Oxygen Delivery Me thod Room Air 09/14/24 04:30 MDM - Allergic Reaction Medical Decision Making 49-year-old female presents to the emergency department for evaluation of allergy reaction after getting chemotherapy today. She has 2 different types of rashes. The rash on her face appears urticarial. The rashes on her arms and back are more flat and lacy in character. Patient was treated with methylprednisolone and Benadryl. The rash on her face improved. However, the rash on her arms and back had no difference. Patient did not have any leukopenia or thrombocytopenia. Rash reaction is likely secondary to chemotherapy. Will defer management to her oncologist. Patient was also complaining of significant bone pain after her chemotherapy. Provided her with a short course of narcotics to help with the pain. Patient's pain was controlled in the emergency department on Dilaudid. Patient supplied with Narcan nasal spray. Return precautions were discussed and the patient was discharged home in stable condition. Lab Data 09/14/24 01:36 09/14/24 01:36 Laboratory Results WBC 9.22 10^3/uL (3.29-11.43) 09/14/24 01:36 RBC 3.01 10^6/uL (3.85-5.65) L 09/14/24 01:36 Hgb 9.70 g/dL (11.27-16.99) L 09/14/24 01:36 Hct 28.7 % (36-47) L 09/14/24 01:36 MCV 95.3 fl (85-98) 09/14/24 01:36 MCH 32.2 pg (27-33) 09/14/24 01:36 MCHC 33.8 g/dL (30-55) 09/14/24 01:36 RDW 14.8 % (12.1-15.1) 09/14/24 01:36 Plt Count 197 10^3/cmm (157-399) 09/14/24 01:36 MPV 10.0 fL (7.4-10.4) 09/14/24 01:36 Neut % (Auto) 89.7 % 09/14/24 01:36 Lymph % (Auto) 2.3 % 09/14/24 01:36 [place] % (Auto) 6.7 % 09/14/24 01:36 Eos % (Auto) 0.0 % 09/14/24 01:36 Baso % (Auto) 0.3 % 09/14/24 01:36 Neut # (Auto) 8.27 10^3/uL (1.8-7.7) H 09/14/24 01:36 Lymph # (Auto) 0.2 10^3/uL (0.8-4.8) L 09/14/24 01:36 [place] # (Auto) 0.6 10^3/uL (0.2-0.9) 09/14/24 01:36 Eos # (Auto) 0.0 10^3/uL (0.0-0.8) 09/14/24 01:36 Baso # (Auto) 0.0 10^3/uL (0.0-0.1) 09/14/24 01:36 Nucleated RBC % (auto) 0 % 09/14/24 01:36 Nucleated RBCs # 0.0 /100WBC 09/14/24 01:36 Sodium 140 mmol/L (136-145) 09/14/24 01:36 Potassium 3.7 mmol/L (3.5-5.1) 09/14/24 01:36 Chloride 107 mmol/L (98-107) 09/14/24 01:36 Carbon Dioxide 22 mmol/L (22-29) 09/14/24 01:36 Anion Gap 14.7 (5-19) 09/14/24 01:36 BUN 21 mg/dL (6-20) H 09/14/24 01:36 Creatinine 1.0 mg/dL (0.5-0.9) H 09/14/24 01:36 GFR Calculation 58.5 mL/min (90-130) L 09/14/24 01:36 Glucose 178 mg/dL (65-115) H 09/14/24 01:36 Calculated Osmolality 297 mOsm/kg (285-295) H 09/14/24 01:36 Calcium 8.8 mg/dL (8.5-10.5) 09/14/24 01:36 Total Bilirubin 0.7 mg/dL (0.15-1.2) 09/14/24 01:36 AST 45 U/L (0-32) H 09/14/24 01:36 ALT 40 U/L (0-33) H 09/14/24 01:36 Alkaline Phosphatase 82 U/L (35-105) 09/14/24 01:36 Total Protein 6.4 g/dL (6.6-8.7) L 09/14/24 01:36 Albumin 3.6 g/dL (3.5-5.2) 09/14/24 01:36 Globulin 2.8 g/dL (1.3-4.6) 09/14/24 01:36 No radiology studies performed this visit Discharge Plan Discharge Patient Disposition: Home Clinical Impression: Bone pain Allergic reaction Qualifiers: Encounter type: initial encounter Qualified Code(s): T78.40XA - Allergy, unspecified, initial encounter Condition: Stable Prescriptions: New hydromorphone [Dilaudid] 1 mg/mL liquid 2 mg PO Q6H PRN (Reason: pain) Qty: 56 0RF naloxone 3 mg/actuation spray,non-aerosol See Rx Instructions .ROUTE .COMPLEX Qty: 2 0RF Rx Instructions: [place] into nostril as needed for opiate overdose No Action atenolol 25 mg tablet 25 mg PO BID budesonide-formoterol [Symbicort] 160-4.5 mcg/actuation HFA aerosol inhaler 2 puff inhalation BID PRN (Reason: Allergy Symptoms) lidocaine-prilocaine 2.5-2.5 % kit 1 applic topical ONCE Qty: 4 8RF Rx Instructions: apply to port are 45 minutes prior to appointment for port access and cover with plastic covering lorazepam 1 mg tablet 0.5 - 1 mg PO Q6H PRN (Reason: severe nausea) Qty: 120 3RF hydrocodone-acetaminophen 5-325 mg tablet 1 tab PO Q4H 5 Days Qty: 30 0RF Rx Instructions: 1-2 tablets every 4 hours for pain omeprazole 20 mg capsule,delayed release(DR/EC) 20 mg PO BID Qty: 60 11RF Kenalog 10 mg/mL suspension 10 mg SUBCUT .[id number] Rx Instructions: inject into site as ten - 1 mg doses greater than or equal to 1 cm apart vit [id number] 75 mg tablet 1 tab PO BID K2-D3 Max 125 mcg (5,000 unit)-180 mcg capsule 1 cap PO DAILY carboplatin 10 mg/mL solution 170 mg IV ONCE Qty: 135 3RF Rx Instructions: Administer on days 1, 8, 15 of a 21 day cycle paclitaxel 6 mg/mL concentrate 130 mg IV ONCE Qty: 75 3RF Rx Instructions: Administer on day 1, 8, 15 of a 21 day cycle triamcinolone acetonide 0.1 % cream 1 applic topical BID Qty: 30 1RF epinephrine [EpiPen 2-Iglesia] 0.3 mg/0.3 mL auto-injector 0.3 mg IM Q1H PRN (Reason: anaphylaxis) Qty: 2 2RF Rx Instructions: do not exceed 12 doses per 24 hrs promethazine 25 mg tablet 25 mg PO TID PRN (Reason: nausea and vomiting) Qty: 30 2RF ondansetron HCl 4 mg tablet 4 mg PO Q6H PRN (Reason: nausea and vomiting) Qty: 30 3RF doxorubicin 50 mg/25 mL solution 100 mg IV Q21D Qty: 50 3RF Neulasta Onpro 6 mg/0.6 mL syringe, w/ wearable injector 6 mg SUBCUT Q21D Qty: 0.6 3RF cyclophosphamide 500 mg/mL solution 1,000 mg IV Q21D Qty: 2 3RF paclitaxel protein-bound [Abraxane] 100 mg suspension for reconstitution 165 mg IV DIRECTED Qty: 4 0RF Rx Instructions: Administer on day 8 and 15 of cycle 4 Keytruda 25 mg/mL solution See Rx Instructions .ROUTE .COMPLEX Qty: 8 3RF Dose Instruction: INFUSE 200 MG (8 ML) INTRAVENOUSLY ON DAY 1 OF A 21 DAY CYCLE Rx Instructions: INFUSE 200 MG (8 ML) INTRAVENOUSLY ON DAY 1 OF A 21 DAY CYCLE tramadol 50 mg tablet 50 mg PO Q6H PRN (Reason: pain) Qty: 120 2RF hydrocodone-acetaminophen 7.5-325 mg tablet 1 tab PO Q6H PRN (Reason: pain) Qty: 10 0RF albuterol sulfate 2.5 mg /3 mL (0.083 %) solution for nebulization 2.5 mg inhalation Q4H PRN (Reason: Shortness Of Breath) albuterol sulfate 90 mcg/actuation HFA aerosol inhaler 1 puff INHALATION Q4H PRN (Reason: Shortness Of Breath) Discharge Orders: Discharge ED (Routine); Ordered 09/14/24 Ordered By: Augusto Law Referrals: Harris,Neda, RUBY ENGINEER [Primary Care Provider, Nurse Practitioner] Discharge Diet: Advance as tolerated Discharge Activity: Resume usual activity Patient Instructions: Opioid Safety, Pain Management Activity Restrictions/Additional Instructions: Please follow-up with your oncologist related to chemo induced allergy and pain management. Return to the emergency department with any new or worsening symptoms. Print Language: Irish Coding Level of Care Code ED Medical Imaging Technician for Petty Murphy
--- NOTE | 2024-09-14 01:38 | PC.NURSE ---
port accessed with alcohol per pt request due to allergy to iodine, chlorhexidine. pt aware of risks regarding this and preferred port access over iv insertion, requested access with alcohol.
[2024-09-14 01:48] LABS: Basophils % 0.3 %; Hematocrit 28.7 % (36-47); Lymphocytes # 0.2 10^3/uL (0.8-4.8); Lymphocytes % 2.3 %; Mean Corpuscular HGB Conc 33.8 g/dL (30-55); Mean Corpuscular Hemoglobin 32.2 pg (27-33); Mean Corpuscular Volume 95.3 fl (85-98); Monocytes # 0.6 10^3/uL (0.2-0.9); Monocytes % 6.7 %; Neutrophils # 8.27 10^3/uL (1.8-7.7); Neutrophils % 89.7 %; Nucleated Red Blood Cells % 0 %; Platelet Count 197 10^3/cmm (157-399); Red Blood Count 3.01 10^6/uL (3.85-5.65); Red Cell Distribution Width 14.8 % (12.1-15.1); White Blood Count 9.22 10^3/uL (3.29-11.43)
[2024-09-14] MEDS: sodium chloride 0.9% 1,000 ML 999 ML IV ×2 (01:59→02:40)
[2024-09-14] MEDS: diphenhydrAMINE 50 mg Capsule PO (02:01)
[2024-09-14] MEDS: methylPREDNISolone sod succ 125 mg/2 mL INJ 80 MG IVP (02:01)
[2024-09-14 02:10] LABS: Alanine Aminotransferase 40 U/L (0-33); Albumin Level 3.6 g/dL (3.5-5.2); Alkaline Phosphatase 82 U/L (35-105); Anion Gap 14.7 (5-19); Aspartate Amino Transferase 45 U/L (0-32); Blood Urea Nitrogen 21 mg/dL (6-20); Calcium 8.8 mg/dL (8.5-10.5); Carbon Dioxide 22 mmol/L (22-29); Chloride 107 mmol/L (98-107); Creatinine Clr Calc Pharmacy 60.3351; Globulin 2.8 g/dL (1.3-4.6); Glomerular Filtration Rate 58.5 mL/min (90-130); Glucose 178 mg/dL (65-115); Osmolality Calculated 297 mOsm/kg (285-295); Potassium 3.7 mmol/L (3.5-5.1); Sodium 140 mmol/L (136-145); Total Bilirubin 0.7 mg/dL (0.15-1.2); Total Protein 6.4 g/dL (6.6-8.7)
[2024-09-14] MEDS: HYDROmorphone 0.5 MG/0.5 ML INJ 1 MG IVP (02:33)
[2024-09-14 03:59] VITALS: BP 141/98; PULSE 101; RESP 20; O2SAT 97
[2024-09-14 04:30] VITALS: BP 152/91; PULSE 99; RESP 18; O2SAT 99
[2024-09-14 05:41] VITALS: BP 138/90; PULSE 95; RESP 18; O2SAT 97
--- NOTE | 2024-09-14 15:19 | PC.NURSE ---
PATIENT CALLED STATING THAT NO PHARMACY IN [facility] HAS DILAUDID IN STOCK AND REQUESTED HER MEDICATION BE CALLED INTO ANOTHER PHARMACY. PATIENT STATED THAT SHE WAS DRIVING TO [place] CURRENTLY TO GET HER CANCER TREATMENT AND REQUESTED THE PRESCRIPTION TO BE CALLED IN TO A [facility] IN [place]. PRESCRIPTION WAS ORIGINALLY WRITTEN BY DR. DELVALLE. PRESCRIPTION AND SITUATION REPORTED TO DR. LOPEZ WHO STATED HE WOULD E-SCRIBE THEM TO THE PREFERRED PHARMACY IN [place]. PT WAS NOTIFIED AT THIS TIME.
== END 2024-09-14 05:44 | disposition home or self-care (01) ==
PROVIDERS: Emergency Provider General Practice; PCP Nurse Practitioner Family
DX: T78.40XA Allergy, unspecified, initial encounter (principal); M89.8X9 Other specified disorders of bone, unspecified site; M89.8X0 Other specified disorders of bone, multiple sites; Z79.899 Other long term (current) drug therapy
CPT/HCPCS: 80053; 85025; 96361; 96374; 96375; 99284; J1171; J1642; J2919; J7030; Q0163

== ENCOUNTER 2024-09-25 09:45 | Oncology outpatient (recurring) (ONCR) | payer BC, SELFPAY ==
[2024-09-24] MEDS: sodium chloride 0.9% 1,000 ML 999 ML IV (14:56)
[2024-09-24 16:15] VITALS: BP 105/67; PULSE 72; RESP 16; TEMP 36.1; O2SAT 99
[2024-09-24 16:24] LABS: Basophils # 0.1 10^3/uL (0.0-0.1); Eosinophils # 0.2 10^3/uL (0.0-0.8); Eosinophils % 3.3 %; Hematocrit 28.6 % (36-47); Lymphocytes # 1.4 10^3/uL (0.8-4.8); Lymphocytes % 28.5 %; Mean Corpuscular HGB Conc 33.9 g/dL (30-55); Mean Corpuscular Volume 97.3 fl (85-98); Mean Platelet Volume 9.6 fL (7.4-10.4); Monocytes % 20.3 %; Neutrophils # 2.19 10^3/uL (1.8-7.7); Neutrophils % 45.9 %; Nucleated Red Blood Cells % 0 %; Platelet Count 199 10^3/cmm (157-399); Red Blood Count 2.94 10^6/uL (3.85-5.65); Red Cell Distribution Width 14.1 % (12.1-15.1); White Blood Count 4.78 10^3/uL (3.29-11.43)
[2024-09-24 16:43] LABS: Alanine Aminotransferase 12 U/L (0-33); Albumin Level 3.2 g/dL (3.5-5.2); Alkaline Phosphatase 63 U/L (35-105); Anion Gap 13.9 (5-19); Aspartate Amino Transferase 14 U/L (0-32); Blood Urea Nitrogen 21 mg/dL (6-20); Calcium 8.1 mg/dL (8.5-10.5); Carbon Dioxide 22 mmol/L (22-29); Chloride 111 mmol/L (98-107); Globulin 2.3 g/dL (1.3-4.6); Glomerular Filtration Rate 75.6 mL/min (90-130); Glucose 106 mg/dL (65-115); Osmolality Calculated 299 mOsm/kg (285-295); Potassium 3.9 mmol/L (3.5-5.1); Sodium 143 mmol/L (136-145); Total Bilirubin 0.5 mg/dL (0.15-1.2); Total Protein 5.5 g/dL (6.6-8.7)
[2024-09-25 11:02] LABS: D Dimer 0.65 ug/mLFEU (0-0.59)
== END 2024-10-22 23:59 | disposition home or self-care (01) ==
PROVIDERS: Nurse Practitioner; PCP Nurse Practitioner Family; Visit Provider Internal Medicine
DX: Z53.9 Procedure and treatment not carried out, unspecified reason; C50.911 Malignant neoplasm of unspecified site of right female breast; R79.89 Other specified abnormal findings of blood chemistry
CPT/HCPCS: 36415; 80053; 85025; 85378; 96360; J7030

== ENCOUNTER 2024-11-05 06:25 | Day surgery (SDC) | payer BC, SELFPAY ==
[2024-11-05] VITALS (7 sets, daily range): BP systolic 125–178; BP diastolic 73–103; PULSE 55–69; RESP 16–20; TEMP 36.3–36.6; O2SAT 94–99; BMI 21.6
--- NOTE | 2024-11-05 07:01 | W.PM.OPSUD ---
Surgery/Procedure H&P Update DATE OF PROCEDURE: November 05, 2024 DATE H&P PERFORMED: 10/30/24 H&P UPDATE INFORMATION: I have reviewed H&P completed within last 30 days, I have examined patient prior to procedure, No changes to prior documentation, H&P is in [facility] EMR on date indicated and Risks and benefits of the procedure reviewed PLANNED PROCEDURE: Operation Date: 11/05/24 08:00 Proposed Procedures p Portacath Removal [id number](Not Applicable) - Irving Hanson MD
--- NOTE | 2024-11-05 07:50 | P.ANESASSM_ITS ---
Pre-Anesthetic Assessment Height/Weight: Height 1.65 m Weight 58.967 kg Temp Pulse Resp BP Pulse Ox O2 Del Method 97.5 F L 58 L 17 178/103 98 Room Air 11/05/24 06:47 11/05/24 06:47 11/05/24 06:47 11/05/24 06:47 11/05/24 06:47 11/05/24 06:47 Preop Diagnosis: treatment complete Operation Date: 11/05/24 08:00 Proposed Procedures p Portacath Removal 11160 Z95.828(Not Applicable) - Irving Hanson MD Familial anesthetic complications: none Was Beta Kvng taken within 24 hours: N/A (did not take atenolol this AM) Was Clonidine taken within 24 hours: N/A Last intake: Intake Last Liquid Date 11/04/24 Last Liquid Time 21:45 Last Solid Date 11/04/24 Last Solid Time 21:45 Social No alcohol and No tobacco Exam alert and oriented x 3 Airway Submandibular: within normal limits Cervical ROM: within normal limits Mallampati: Class IV Dentition: full Comments: Comments: small mouth opening History/ROS No significant history except as noted Pulmonary None reported CV/HEM Hypertension and Palpitations None reported Hepatic None reported GI Gastroesophageal Reflux Disease (pt denies, takes omeprazole) Metabolic None reported right breast cancer, right lumpectomy in september 2024 [facility] None reported Neuropsych None reported Anesthetic Plan ASA status: 3 Anesthesia: Anesthesia Evaluation and MAC Risk of > 500 ml blood loss (7ml/kg in children): No Medications/Allergies Home Medications ?Medication ?Instructions ?Recorded ?Confirmed ?Last Taken ?Type albuterol sulfate 2.5 mg/3 mL 2.5 mg inhalation Q4H ND N 07/05/23 11/02/24 Unknown History (0.083 %) solution for nebulization Shortness Of Breat h albuterol sulfate 90 mcg/actuation 1 puff inhalation Q 4H PRN 07/05/23 11/02/24 Unknown History aerosol inhaler Shortness Of Breath atenolol 25 mg tablet 25 mg PO BID heart palpitati ons 05/31/24 11/05/24 11/04/24 17:00 History budesonide-formoterol HFA 160 2 puff inhalation BID ND N Allergy 05/31/24 11/02/24 Unknown History mcg-4.5 mcg/actuation aerosol Symptoms inhaler (Symbicort) triamcinolone acetonide 10 mg/mL 10 mg SUBCUT .[id number] s 05/31/24 11/02/24 10/17/24 History suspension for injection (Kenalog) vitamin D3 125 mcg (5,000 1 cap PO DAILY 05/31/24 07/05/1911/02/24 History unit)-vitamin K2 180 mcg capsule (K2-D3 Max) epinephrine 0.3 mg/0.3 mL 0.3 mg (0.3 mL) IM Q1H PRN 0 06/20/24 11/02/24 Unknown Rx injection, auto-injector (EpiPen anaphylaxis #2 ea 2-Iglesia) promethazine 25 mg tablet 25 mg PO TID PRN nausea and 06/20/24 11/02/24 Unknown Rx vomiting #30 tabs ondansetron HCl 4 mg tablet 4 mg PO Q6H PRN nausea and 07/12/24 11/02/24 Unknown Rx vomiting #30 tabs omeprazole 20 mg capsule,delayed 20 mg PO BID #60 caps 08/30/24 11/05/24 11/04/24 Rx release tramadol 50 mg tablet 50 mg PO Q6H PRN pain #120 t abs 09/13/24 11/02/24 Unknown Rx naloxone 3 mg/actuation nasal spray See Rx Instruction s .Route 09/14/24 11/02/24 Unknown Rx .COMPLEX #2 ea lorazepam 1 mg tablet 0.5 - 1 mg (0.5 - 1 x 1 mg) PO Q6H 09/28/24 11/02/24 11/01/24 Rx PRN severe nausea #120 tabs hydromorphone 1 mg/mL oral liquid 2 mg PO Q6H PRN Pain 11/02/24 11/02/24 Unknown History (Dilaudid) Allergies Allergy/AdvReac Type Severity Reaction Status Date / Time chlorhexidine (From Allergy Unknown ALGY-Hives Verified 11/05/24 07:00 ChloraPrep Clear) yellow dye Allergy Unknown Verified 11/05/24 07:00 Current Medications Generic Name Dose Route Start Last Admin Trade Name Freq PRN Reason Stop Dose Admin Sodium Chloride 1,000 mls @ 30 mls/hr 11/05/24 06:30 11/05/24 06:53 Sodium Chloride 0.9% IV 11/06/24 06:29 30 mls/hr .Q24H ROSAURA Administration PFSH Anesthesia Family History (Updated 10/30/24 @ 09:20 by MARITZA Parkinson) Father Diabetes Social History Smoking and tobacco/nicotine status: never used tobacco/nicotine Second hand smoke exposure: No Alcohol intake: never Substance/Drug Use: never Additional social history: Wants full code discussed in the presence of her sister and mother 08/23/2024 Adopted: No Caregiver/support person: No Lives independently: Yes Household members: significant other Housing: House Marital status: Number of children: 0 Highest education level completed: Associate Degree: Occupational, Technical, Vocational Program service: No Current occupational status: employed Data Anesthesia Cardiac Studies: Echocardiogram 09/04/24
[2024-11-05] MEDS: ceFAZolin 2,000 mg SDV 2000 MG IVP (08:06)
[2024-11-05] MEDS: lidocaine-epi 1% 20 mL INJ INJECTION (08:17)
[2024-11-05] MEDS: BUPivacaine 0.25% INJ 10 mL INJECTION (08:17)
--- NOTE | 2024-11-05 08:32 | PM.OP ---
Operative Report Date of procedure: November 05, 2024 Pre-op diagnosis: History of breast cancer Post-op diagnosis: Same Post-op findings: Cortical in place. Procedure done: Excision of Port-A-Cath and capsule Specimens removed/disposition: Port-A-Cath and capsule, no pathology Surgeon: Irving Hanson MD Computer Game Tester: JOANNE OR Staff Complications: none apparent Brief History: 49-year-old female with history of breast cancer who has finished therapy and desires to remove Port-A-Cath. We discussed all risk benefits and decided to proceed to the OR. Procedure: Patient was brought into the OR, she was placed in a supine position. Monitored anesthesia care was initiated. The left upper chest was prepped and draped in the usual sterile fashion. A timeout was conducted. A 3 cm incision was made overlying the area of the Port-A-Cath through the previous surgical scar. The incision was deepened until the Port-A-Cath was identified, the capsule around the Port-A-Cath was opened and the Port-A-Cath was delivered through the skin. Pressure was held in the subclavian vein and the Port-A-Cath was removed. I then obliterated the tract using a #3-0 Vicryl suture to prevent backbleeding. The capsule was then excised using a combination of blunt dissection and Metzenbaum. Hemostasis was achieved. The wound was closed in layers using #3-0 Vicryl for the subcutaneous tissue #4 Monocryl for the skin. Dermabond was applied and a compressive dressing was placed on top of the Dermabond. At the end of the procedure all counts were correct, the patient tolerated well the procedure and was transferred to the PACU in stable condition.
--- NOTE | 2024-11-05 09:30 | ANE.PACU2 ---
Inpatient post-anesthesia follow up: Airway intact: Yes Vital signs: Temperature 98 F Pulse Rate 69 Respiratory Rate 16 Blood Pressure 158/95 Pulse Oximetry 98 Oxygen Delivery Me thod Room Air Oxygen Flow Rate Fraction of Inspir ed Oxygen Hydration adequate: Yes Nausea and vomiting: No Pain level: 1 Mental status: Baseline
== END 2024-11-05 09:30 | disposition home or self-care (01) ==
PROVIDERS: PCP Nurse Practitioner; Visit Provider Surgery
PROC: (CPT 36589; principal; 2024-11-05 07:50)
DX: Z45.2 Encounter for adjustment and management of vascular access device (principal); Z85.3 Personal history of malignant neoplasm of breast; I10 Essential (primary) hypertension; R00.2 Palpitations; K21.9 Gastro-esophageal reflux disease without esophagitis; Z98.890 Other specified postprocedural states
CPT/HCPCS: 36590; J0690; J2704; J3010; J3490; J7030; J9999

== ENCOUNTER 2024-12-27 13:43 | Emergency (ER) | payer BC, SELFPAY ==
[2024-12-27 13:46] VITALS: BP 183/108; PULSE 63; RESP 16; TEMP 36.7; O2SAT 98; BMI 22.8
--- OUTSIDE RECORDS SUMMARY | 2024-12-27 13:54 | XMS_ITS | Encounter Summary ---
Author Organization [facility] Address [address] [facility] Attn: Epic Prelude ADT [place] [address] Care Team Providers Care Dorr Operator Name Role Phone Syed Frederick MD Primary Care Provider [phone] Encounter Details Date Type Department Care Team (Late st Contact Info) Description 03/19/2008 Outpatient Historical Marisabel Cuellar MD [address] [facility], [facility] [address] [place] [address] Social History Tobacco Use Types Packs/Day Years Used Date Smoking Tobacco: Never Alcohol Use Standard Drinks/Week Comments No 0 (1 standard drink = 0.6 oz pur e alcohol) Comments No Sex and Gender Information Value Date Recorded Sex Assigned at Not on file Legal Sex Female 5:08 AM MICROCHIP SPECIALIST Gender Identity Not on file Sexual Orientation Not on file documented as of this encounter Plan of Treatment Not on file documented as of this encounter Procedures Procedure Name Priority Date/Time Associated Diagnosis Comments GC, GENITAL Routine 03/19/2008 3:34 PM MICROCHIP SPECIALIST CHLAMYDIA, GENITAL Routine 03/19/2008 3: 34 PM MICROCHIP SPECIALIST documented in this encounter Results * GC DNA AMPLIFICATION (03/19/2008 3:34 PM MICROCHIP SPECIALIST) FINAL REPORT DNA Amplification Assay: negative for Neisseria gonorrhoeae The [employer]or CT/NG test by Polymerase Chain Reaction (PCR) is approved for testing only on endocervical and male urethral swab specimens and male urine. The use of specimens from any other body site has not been validated. Detection of Neisseria gonorrhoeae is dependent on the number of organisms present in the specimen. This may be affected by patient factors, stage of infection, specimen collection methods, transport, storage and processing procedures. INTERFACE SYSTEM Specimen from genital system (specimen) (Endocervical) 03/19/2008 3:34 PM MICROCHIP SPECIALIST 03/19/2008 8:09 PM MICROCHIP SPECIALIST Marisabel Cuellar MD MICROBIOLOGY - GENERAL ORD ERABLES Final Result Performing Organization Address City/[facility] Co de Phone Number INTERFACE SYSTEM Refer to clinic/hospital department * CHLAMYDIA DNA AMPLIFICATION (03/19/2008 3:34 PM MICROCHIP SPECIALIST) FINAL REPORT DNA Amplification Assay: negative for Chlamydia trachomatis --------- The [employer] Jenny Amplicor CT/NG test by Polymerase Chain Reaction (PCR) is approved for testing only on endocervical and male urethral swab specimens and urine. The use of specimens from any other body site has not been validated. Dectection of Chlamadia trachomatis is dependent on the number of organisms present in the specimen. This may be affected by patient factors, stage of infection, specimen collection methods, transport, storage and processing procedures. INTERFACE SYSTEM Specimen from genital system (specimen) (Endocervical) 03/19/2008 3:34 PM MICROCHIP SPECIALIST 03/19/2008 8:09 PM MICROCHIP SPECIALIST Marisabel Cuellar MD MICROBIOLOGY - GENERAL ORD ERABLES Final Result Performing Organization Address City/[facility] Co de Phone Number INTERFACE SYSTEM Refer to clinic/hospital department documented in this encounter Visit Diagnoses Not on filedocumented in this encounter Care Teams Dorr Operator Relationship Specialty Start Date End Date Syed Frederick MD [address] [place] [address] PCP - General 11/14/06 documented as of this encounter
--- OUTSIDE RECORDS SUMMARY | 2024-12-27 13:54 | XMS_ITS | Encounter Summary ---
Author Organization [facility] Address [address] [place] [address] Care Team Providers Care Control Center Operator Name Role Phone Syed Frederick MD Primary Care Provider [phone] Encounter Details Date Type Department Care Team (Latest Contact Info) Description 05/10/2006 Outpatient Historical [facility] [address] [facility] [address] [place] [address] Marisabel Cuellar MD [address] [facility] [address], [address] [place] [address] Routine Medical Exam (Primary Dx); Routine Gynecological Examination; Unspecified Symptom Associated with 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 Social History Tobacco Use Types Packs/Day Years Used Date Smoking Tobacco: Never Assessed Comments Unknown Sex and Gender Information Value Date Recorded Sex Assigned at Not on file Legal Sex Female 5:08 AM PHARMACOGNOSIST Gender Identity Not on file Sexual Orientation Not on file documented as of this encounter Plan of Treatment Not on file documented as of this encounter Visit Diagnoses Diagnosis Routine medical exam- Primary Routine general medical examination at a health care facility Routine gynecological examination Unspecified symptom associated with female genital organs documented in this encounter Care Teams Control Center Operator Relationship Specialty Start Date End Date Syed Frederick MD [address] [place] [address] PCP - General 11/14/06 documented as of this encounter
--- OUTSIDE RECORDS SUMMARY | 2024-12-27 13:54 | XMS_ITS | Encounter Summary ---
Author Organization [facility] Address [address] [place] [address] Care Team Providers Care First Line Supervisor Name Role Phone Syed Frederick MD Primary Care Provider [phone] Encounter Details Date Type Department Care Team (Latest Contact Info) Description 05/12/2007 Outpatient Historical [facility] FY06 Marisabel Cuellar MD [address] [facility], [facility] [address] [place] [address] Routine Gynecological Examination Social History Tobacco Use Types Packs/Day Years Used Date Smoking Tobacco: Never Assessed Comments Unknown Sex and Gender Information Value Date Recorded Sex Assigned at Not on file Legal Sex Female 5:08 AM BRANCH MANAGER Gender Identity Not on file Sexual Orientation Not on file documented as of this encounter Plan of Treatment Not on file documented as of this encounter Visit Diagnoses Diagnosis Routine gynecological examination documented in this encounter Care Teams First Line Supervisor Relationship Specialty Start Date End Date Syed Frederick MD [address] [place] [address] PCP - General 11/14/06 documented as of this encounter
--- OUTSIDE RECORDS SUMMARY | 2024-12-27 13:54 | XMS_ITS | Encounter Summary ---
Author Organization [facility] Address [address] [place] [address] Care Team Providers Care Drying Room Attendant Name Role Phone Syed Frederick MD Primary Care Provider [phone] Encounter Details Date Type Department Care Team (Late st Contact Info) Description 05/14/2008 Ancillary Orders [facility] [address] [facility] [address] [place] [address] Marisabel Cuellar MD [address] [facility], [facility] [address] [place] [address] Screening Mammogram Social History Tobacco Use Types Packs/Day Years Used Date Smoking Tobacco: Never Alcohol Use Standard Drinks/Week Comments No 0 (1 standard drink = 0.6 oz pur e alcohol) Comments No Sex and Gender Information Value Date Recorded Sex Assigned at Not on file Legal Sex Female 5:08 AM RELEASE MANAGER Gender Identity Not on file Sexual Orientation Not on file documented as of this encounter Plan of Treatment Not on file documented as of this encounter Visit Diagnoses Diagnosis Screening mammogram Other screening mammogram documented in this encounter Care Teams Drying Room Attendant Relationship Specialty Start Date End Date Syed Frederick MD [address] [place], [place] [address] PCP - General 11/14/06 documented as of this encounter
--- OUTSIDE RECORDS SUMMARY | 2024-12-27 13:54 | XMS_ITS | Encounter Summary ---
Author Organization [facility] Address [address] [facility] Attn: [place] [address] Care Team Providers Care Line Cook Name Role Phone Syed Frederick MD Primary Care Provider [phone] Encounter Details Date Type Department Care Team (Late st Contact Info) Description 05/10/2006 Outpatient Historical Marisabel Cuellar MD [address] [facility], [facility] [address] [place] [address] Social History Tobacco Use Types Packs/Day Years Used Date Smoking Tobacco: Never Assessed Comments Unknown Sex and Gender Information Value Date Recorded Sex Assigned at Not on file Legal Sex Female 5:08 AM WHITE SUGAR BOILER Gender Identity Not on file Sexual Orientation Not on file documented as of this encounter Plan of Treatment Not on file documented as of this encounter Visit Diagnoses Not on filedocumented in this encounter Care Teams Line Cook Relationship Specialty Start Date End Date Syed Frederick MD [address] [place] [address] PCP - General 11/14/06 documented as of this encounter
--- OUTSIDE RECORDS SUMMARY | 2024-12-27 13:54 | XMS_ITS | Encounter Summary ---
Author Organization [facility] Address [address] [place] [address] Care Team Providers Care Corn Cooker Name Role Phone Syed Frederick MD Primary Care Provider [phone] Encounter Details Date Type Department Care Team (Late st Contact Info) Description 11/14/2006 Outpatient Historical [facility] [place] [address] [facility] [place] [address] Marisabel Cuellar MD [address] [facility] [address] [place] [address] Unspecified Symptom Associated with 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 (Primary Dx); Pelvic Peritoneal Adhesions, Female (Postoperative) (Postinfection) Social History Tobacco Use Types Packs/Day Years Used Date Smoking Tobacco: Never Assessed Comments Unknown Sex and Gender Information Value Date Recorded Sex Assigned at Not on file Legal Sex Female 5:08 AM STRAIGHTEDGE WORKER Gender Identity Not on file Sexual Orientation Not on file documented as of this encounter Plan of Treatment Not on file documented as of this encounter Visit Diagnoses Diagnosis Unspecified symptom associated with female genital organs- Primary Pelvic peritoneal adhesions, female (postoperative) (postinfection) documented in this encounter Care Teams Corn Cooker Relationship Specialty Start Date End Date Syed Frederick MD [address] [place] [address] PCP - General 11/14/06 documented as of this encounter
--- OUTSIDE RECORDS SUMMARY | 2024-12-27 13:54 | XMS_ITS | Encounter Summary ---
Author Organization [facility] Address [address] [place] [address] Care Team Providers Care Blister Packing Machine Tender Name Role Phone Syed Frederick MD Primary Care Provider [phone] Encounter Details Date Type Department Care Team (Late st Contact Info) Description 09/12/2006 Outpatient Historical [facility] [address] [facility] [address] [place] [address] Marisabel Cuellar MD [address] [facility] [address] [place] [address] Unspecified Symptom Associated with 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 (Primary Dx) Social History Tobacco Use Types Packs/Day Years Used Date Smoking Tobacco: Never Assessed Comments Unknown Sex and Gender Information Value Date Recorded Sex Assigned at Not on file Legal Sex Female 5:08 AM CLASS A LINEMAN Gender Identity Not on file Sexual Orientation Not on file documented as of this encounter Plan of Treatment Not on file documented as of this encounter Visit Diagnoses Diagnosis Unspecified symptom associated with female genital organs- Primary documented in this encounter Care Teams Blister Packing Machine Tender Relationship Specialty Start Date End Date Syed Frederick MD [address] [place] [address] PCP - General 11/14/06 documented as of this encounter
--- OUTSIDE RECORDS SUMMARY | 2024-12-27 13:54 | XMS_ITS | Encounter Summary ---
Author Organization [facility] Address [address] [place] [address] Care Team Providers Care Road Engineer Freight Name Role Phone Syed Frederick MD Primary Care Provider [phone] Encounter Details Date Type Department Care Team (Latest Contact Info) Description 05/10/2006 Outpatient Historical [facility] [address] [place] [address] Gregor Oconnell MD [address] [place] [address] Abdominal Pain, Unspecified Site (Primary Dx) Social History Tobacco Use Types Packs/Day Years Used Date Smoking Tobacco: Never Assessed Comments Unknown Sex and Gender Information Value Date Recorded Sex Assigned at Not on file Legal Sex Female 5:08 AM BLAST FURNACE KEEPER Gender Identity Not on file Sexual Orientation Not on file documented as of this encounter Plan of Treatment Not on file documented as of this encounter Visit Diagnoses Diagnosis Abdominal pain, unspecified site- Primary documented in this encounter Care Teams Road Engineer Freight Relationship Specialty Start Date End Date Syed Frederick MD [address] [place] [address] PCP - General 11/14/06 documented as of this encounter
--- OUTSIDE RECORDS SUMMARY | 2024-12-27 13:54 | XMS_ITS | Encounter Summary ---
Author Organization [facility] Address [address] [facility] Attn: [place] [address] Care Team Providers Care Cake Maker Name Role Phone Syed Frederick MD Primary Care Provider [phone] Encounter Details Date Type Department Care Team (Late st Contact Info) Description 05/12/2007 Outpatient Historical Marisabel Cuellar MD [address] [facility], [facility] [address] [place] [address] Social History Tobacco Use Types Packs/Day Years Used Date Smoking Tobacco: Never Assessed Comments Unknown Sex and Gender Information Value Date Recorded Sex Assigned at Not on file Legal Sex Female 5:08 AM AUTO MECHANIC SUPERVISOR Gender Identity Not on file Sexual Orientation Not on file documented as of this encounter Plan of Treatment Not on file documented as of this encounter Visit Diagnoses Not on filedocumented in this encounter Care Teams Cake Maker Relationship Specialty Start Date End Date Syed Frederick MD [address] [place] [address] PCP - General 11/14/06 documented as of this encounter
--- OUTSIDE RECORDS SUMMARY | 2024-12-27 13:55 | XMS_ITS | Encounter Summary ---
Author Organization [facility] Address [address] [place] [address] Care Team Providers Care Bookkeeper Receptionist Name Role Phone Syed Frederick MD Primary Care Provider [phone] Encounter Details Date Type Department Care Team (Late st Contact Info) Description 05/12/2007 Outpatient Historical [facility] [place] [address] [address] [facility] [address] [place] [address] Marisabel Cuellar MD [address] [facility] [address] [place] [address] Social History Tobacco Use Types Packs/Day Years Used Date Smoking Tobacco: Never Assessed Comments Unknown Sex and Gender Information Value Date Recorded Sex Assigned at Not on file Legal Sex Female 5:08 AM FLOORING MACHINE FEEDER Gender Identity Not on file Sexual Orientation Not on file documented as of this encounter Progress Notes * Marisabel Cuellar - 05/12/2007 12:00 AM CST 05/12/2007 Jana Riddle [id number] : 1975 ASSESSMENT AND PLAN: History of pelvic adhesions. The patient notes recurrence of her left lower quadrant pain over the last 4-6 weeks. She has been getting Depo-Provera at [facility] and she is due again the 2nd week of May. The patient states that [id number] Aleve usually relieves her pain. The patient is status post a laparoscopy with adhesiolysis and probable endometriosis lastyear. She states it is not that bad yet. She is also requesting STD check . Check GC, chlamydia, Pap smear, and HPV. Due to recurrent pain, we will check pelvis ultrasound and will follow. Discussed calcium, diet, and exercise. Return to the clinic in 1 year or p.r.n. Please see KETTLE TENDER Assessment Form. Marisabel Cuellar M.D. CONCRETE LAYER, Lauren Electronically Signed by Marisabel Cuellar M.D. 05/23/2007 08:30 , A, 670 Job #: , Document #: [id number], cc: RING MACHINE FEEDER documented in this encounter Miscellaneous Notes * Letter - Marisabel Cuellar - 05/12/2007 12:00 AM CST 05/12/2007 Jana Riddle [address] [place] [address] Dear Ms. Riddle: I have received the results of your recent cervical Pap smear test that was taken in my office. This has been reported as negative (no evidence of malignancy and no evidence of any pre-malignant change.) As a form of good preventive medicine, it is advisable for the average woman to have this test performed once per year. However, if different recommendations have been made for you, you should followthose recommendations. Please feel free to call my office if you have any questions. Sincerely, Marisabel Cuellar M.D. CONCRETE LAYERLauren Electronically Signed by Marisabel Cuellar M.D. 05/23/2007 08:30 , P, ads Job #: Document #: [id number] cc: RING MACHINE FEEDER documented in this encounter Plan of Treatment Not on file documented as of this encounter Visit Diagnoses Not on filedocumented in this encounter Care Teams Bookkeeper Receptionist Relationship Specialty Start Date End Date Syed Frederick MD [address] [place] [address] PCP - General 11/14/06 documented as of this encounter
--- OUTSIDE RECORDS SUMMARY | 2024-12-27 13:55 | XMS_ITS | Clinical Summary ---
Author Organization [facility] Address [address] [place] [address] Care Team Providers Care Party Plan Salesperson Name Role Phone Syed Frederick MD Primary Care Provider [phone] Allergies No known active allergies Medications MEDROXYPROGEST ERONE 150 mg/mL IM SuspIndication s:P.I.D. Inject 150 mg by intramuscular injection one time only. Every 3 mo Active Active Problems Problem Noted Date Diagnosed Date Unspecified symptom associated with female genit al organs 03/25/2008 PID (pelvic inflammatory disease) 03/25/2008 Overview (05/19/2010): Updating IMO/ICD9 Code and Description Family History Medical History Relation Name Comments Diabetes Other 1 FATHER AND GRAN DMOTHER Heart Disease Other 2 FATHER AND GRA NDPARENTS Stroke Other 3 GRANDFATHER Relation Name Status Comments Other 1 Other 2 Other 3 Social History Tobacco Use Types Packs/Day Years Used Date Smoking Tobacco: Never Alcohol Use Standard Drinks/Week Comments No 0 (1 standard drink = 0.6 oz pur e alcohol) Comments No Sex and Gender Information Value Date Recorded Sex Assigned at Not on file Legal Sex Female 5:08 AM SOLAR PROJECT COORDINATION SPECIALIST Gender Identity Not on file Sexual Orientation Not on file Last Filed Vital Signs Vital Sign Reading Time Taken Comments Blood Pressure 126/74 05/16/2009 11:31 AM SOLAR PROJECT COORDINATION SPECIALIST Pulse 78 05/16/2009 11:31 AM SOLAR PROJECT COORDINATION SPECIALIST Temperature - - Respiratory Rate 18 05/16/2009 11:31 AM SOLAR PROJECT COORDINATION SPECIALIST Oxygen Saturation - - Inhaled Oxygen Concentration - - Weight 64.4 kg (142 lb) 05/16/2009 11:31 AM SOLAR PROJECT COORDINATION SPECIALIST Height 165.1 cm (5' 5 ) 05/14/2008 3:27 PM SOLAR PROJECT COORDINATION SPECIALIST Body Mass Index 23.63 05/14/2008 3:27 PM SOLAR PROJECT COORDINATION SPECIALIST Plan of Treatment Health Maintenance Due Date Last Done Comments DTAP/TDAP/TD VACCINES (1 - Tdap) 01/16/1992 HEPATITIS B VACCINES (1 of 3 - 19+ 3-dose series) 01/16/1992 PAP SMEAR 05/16/2012 05/16/2009, 05/14/2008 BREAST CANCER SCREENING 2013 08/13/2008 CERVICAL CANCER SCREENING 05/16/2014 HPV/Cotest (21-29) 05/16/2014 05/16/2009 HPV/Cotest (30-65) 05/16/2014 05/16/2009 COLORECTAL SCREENING 2018 Colorectal Cancer Screening 2018 FIT-DNA Q 3 years 2018 FIT/FOBT Q 1 year 2018 Flex Sig/CT Colonography Q 5 years 2018 ZOSTER VACCINE (1 of 2) 2023 INFLUENZA VACCINE (#1) 2024 Procedures Procedure Name Priority Date/Time Associated Diagnosis Comments CERV/VAG CYTOPATH, THIN PREP IMAGR RFLX HPV Routine 05/16/2009 3:22 PM SOLAR PROJECT COORDINATION SPECIALIST MAMMO SCREEN BILAT W OR WO CAD Routine 08/13/2008 10:29 AM CDT Other Screening Mammogram from Last 3 Months or Most Recently Relevant to Health Maintenance Results * CERV/VAG CYTOPATH, THIN PREP IMAGR RFLX HPV (05/16/2009 3:22 PM SOLAR PROJECT COORDINATION SPECIALIST) Pathologist [facility] TONE REGULATOR CYTOLOGY REPORT REFLEX HPV [facility] Anatomic Pathology Dept [facility] [address] Patient: ELLI VICTORIA Accn No: [id number] , [id number] Collected: 05/16/2009 3:22:00 PM TONE REGULATOR PAP - REFLEX HPV History Specimen Type: Endocervical LMP: None Provided Previous Pap History: WNL 2008 Specimen Adequacy Satisfactory for interpretation. The smear shows sufficient numbers of endocervical or metaplastic cells. Diagnosis NEGATIVE FOR INTRAEPITHELIAL LESION OR MALIGNANCY. (Previously noted as Within Normal Limits). Solutions Architect/ Pathologist: 05/22/09 Completed by: JESSIE BUSTOS (Electronically signed by) 05/22/09 Comment Routine follow-up is suggested. Important Info About Pap Smears HPV Testing off the Thin Prep vial can be done as a means of further evaluating a Thin Prep Report. For information about ordering the HPV test, phone Cytology at . Treatment or follow-up recommendations (if any) that are considered within this report are based upon general recommendations as contained in 2001 Consensus Guidelines For Cervical Cytological Abnormalities RADHA: August 16, 2001, and are provided as a general guideline rather than as a specific recommendation. Final decisions about the most appropriate treatment and follow-up should be made on an individualized basis by the treating physician in consultation with his/her patient. [facility] 05/16/2009 3:22 PM SOLAR PROJECT COORDINATION SPECIALIST April Toro NP PATHOLOGY/CYTOLOGY ORDERABL ES Edited INTERFACE SYSTEM Refer to clinic/hospital department [facility] CLIA# [id number] [facility] [place] [address] * MAMMO DIGITAL SCREEN BILAT (08/13/2008 10:29 AM CDT) Anatomical Region Laterality Modality Breast Bilateral Mammography Narrative 08/14/2008 11:01 AM CDT Bilateral Mammogram Reason for Exam: Screening Comparison: No prior exam(s) for comparison. This is a baseline exam. Findings: Bilateral CC and MLO views were obtained. This examination was reviewed with the aid of a computer-aided detection system(CAD). The breast tissue is dense. No discrete abnormality Procedure Note Geneva Vital MD - 08/14/2008 Bilateral Mammogram Reason for Exam: Screening Comparison: No prior exam(s) for comparison. This is a baseline exam. Findings: Bilateral CC and MLO views were obtained. This examination was reviewed with the aid of a computer-aided detectionsystem(CAD). The breast tissue is dense. No discrete abnormality us Marisabel Cuellar MD MAMMO ORDERABLES Final Res ult from Last 3 Months or Most Recently Relevant to Health Maintenance Insurance [employer] [facility] [employer] [facility] GENERIC PAYOR Care Teams Party Plan Salesperson Relationship Specialty Start Date End Date Syed Frederick MD [address] [place] [address] PCP - General 11/14/06
--- OUTSIDE RECORDS SUMMARY | 2024-12-27 13:55 | XMS_ITS | Encounter Summary ---
Author Organization [facility] Address [address] [place] [address] Care Team Providers Care Apple Thinner Name Role Phone Syed Frederick MD Primary Care Provider [phone] Encounter Details Date Type Department Care Team (Late st Contact Info) Description 11/25/2006 Outpatient Historical [facility] [place] [address] [facility] [address] [place] [address] Marisabel Cuellar MD [address] [facility] [address] [place] [address] Follow-Up Examination, Following Unspecified Surgery (Primary Dx) Social History Tobacco Use Types Packs/Day Years Used Date Smoking Tobacco: Never Assessed Comments Unknown Sex and Gender Information Value Date Recorded Sex Assigned at Not on file Legal Sex Female 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
--- OUTSIDE RECORDS SUMMARY | 2024-12-27 13:55 | XMS_ITS | Encounter Summary ---
Author Organization [facility] Address [address] [place] [address] Care Team Providers Care Ratings Analyst Name Role Phone Syed Frederick MD Primary Care Provider [phone] Encounter Details Date Type Department Care Team (Latest Contact Info) Description 11/14/2006 Outpatient Historical [facility] [address] [place] [address] Marisabel Cuellar MD [address] [facility] [place] [address] Unspecified Symptom Associated with 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 (Primary Dx) Social History Tobacco Use Types Packs/Day Years Used Date Smoking Tobacco: Never Assessed Comments Unknown Sex and Gender Information Value Date Recorded Sex Assigned at Not on file Legal Sex Female 5:08 AM POULTRY OFFAL ICER Gender Identity Not on file Sexual Orientation Not on file documented as of this encounter Plan of Treatment Not on file documented as of this encounter Visit Diagnoses Diagnosis Unspecified symptom associated with female genital organs- Primary documented in this encounter Care Teams Ratings Analyst Relationship Specialty Start Date End Date Syed Frederick MD [address] [place], [place] [address] PCP - General 11/14/06 documented as of this encounter
--- OUTSIDE RECORDS SUMMARY | 2024-12-27 13:55 | XMS_ITS | Encounter Summary ---
Author Organization [facility] Address [address] [place] [address] Care Team Providers Care Shake Table Operator Name Role Phone Syed Frederick MD Primary Care Provider [phone] Encounter Details Date Type Department Care Team (Late st Contact Info) Description 10/31/2006 Outpatient Historical [facility] [place] [address] [place] [address] Marisabel Cuellar MD [address] [facility] [address] [place] [address] Unspecified Pre-Operative Examination (Primary Dx) Social History Tobacco Use Types Packs/Day Years Used Date Smoking Tobacco: Never Assessed Comments Unknown Sex and Gender Information Value Date Recorded Sex Assigned at Not on file Legal Sex Female 5:08 AM TAX ADVISOR Gender Identity Not on file Sexual Orientation Not on file documented as of this encounter Plan of Treatment Not on file documented as of this encounter Visit Diagnoses Diagnosis Preoperative examination, unspecified- Primary documented in this encounter Care Teams Shake Table Operator Relationship Specialty Start Date End Date Syed Frederick MD [address] [place] [address] PCP - General 11/14/06 documented as of this encounter
--- OUTSIDE RECORDS SUMMARY | 2024-12-27 13:55 | XMS_ITS | Encounter Summary ---
Author Organization [facility] Address [address] [place] [address] Care Team Providers Care Client Services Director Name Role Phone Syed Frederick MD Primary Care Provider [phone] Encounter Details Date Type Department Care Team (Late st Contact Info) Description 05/12/2007 Outpatient Historical [facility] [address] [place] [address] Social History Tobacco Use Types Packs/Day Years Used Date Smoking Tobacco: Never Assessed Comments Unknown Sex and Gender Information Value Date Recorded Sex Assigned at Not on file Legal Sex Female 5:08 AM ODD SHOE EXAMINER Gender Identity Not on file Sexual Orientation Not on file documented as of this encounter Plan of Treatment Not on file documented as of this encounter Visit Diagnoses Not on filedocumented in this encounter Care Teams Client Services Director Relationship Specialty Start Date End Date Syed Frederick MD [address] [place] [address] PCP - General 11/14/06 documented as of this encounter
--- OUTSIDE RECORDS SUMMARY | 2024-12-27 13:55 | XMS_ITS | Clinical Summary ---
Author Organization [facility] Address [address] Restrepo: Epic Prelude ADT [place] [address] Care Team Providers Care Car Changer Name Role Phone Syed Frederick MD Primary Care Provider [phone] Allergies No known active allergies Active Problems Problem Noted Date Diagnosed Date Unspecified symptom associated with female genit al organs 03/25/2008 PID (pelvic inflammatory disease) 03/25/2008 Overview (08/21/2020): Updating IMO/ICD9 Code and Description Family History Medical History Relation Name Comments Heart Disease Other 1 FATHER AND GRA NDPARENTS Diabetes Other 2 FATHER AND GRAN DMOTHER Stroke Other 3 GRANDFATHER Relation Name Status Comments Other 1 Other 2 Other 3 Social History Tobacco Use Types Packs/Day Years Used Date Smoking Tobacco: Never Alcohol Use Standard Drinks/Week Comments No 0 (1 standard drink = 0.6 oz pur e alcohol) Comments Unknown Sex and Gender Information Value Date Recorded Sex Assigned at Not on file Legal Sex Female 2:05 AM RFID DEVELOPER Gender Identity Not on file Sexual Orientation Not on file Plan of Treatment Health Maintenance Due Date Last Done Comments DTAP/TDAP/TD VACCINES (1 - Tdap) 01/16/1992 HEPATITIS B VACCINES (1 of 3 - 19+ 3-dose series) 12/25 HPV/Cotest (21-29) 1994 CERVICAL CANCER SCREENING 2003 HPV/Cotest (30-65) 2003 PAP SMEAR 2003 BREAST CANCER SCREENING 2013 08/13/2008 COLORECTAL SCREENING 2018 Colorectal Cancer Screening 2018 FIT-DNA Q 3 years 2018 FIT/FOBT Q 1 year 2018 Flex Sig/CT Colonography Q 5 years 2018 ZOSTER VACCINE (1 of 2) 2023 INFLUENZA VACCINE (#1) 2024 Procedures Procedure Name Priority Date/Time Associated Diagnosis Comments MAMMO SCREEN BILAT W OR WO CAD Routine 08/13/2008 10:29 AM CDT Other screening mammogram from Last 3 Months or Most Recently Relevant to Health Maintenance Results * MAMMO SCREEN BILAT W OR WO CAD (08/13/2008 10:29 AM CDT) Anatomical Region Laterality Modality Breast Bilateral Other Narrative 08/14/2008 11:01 AM CDT Bilateral Mammogram Reason for Exam: Screening Comparison: No prior exam(s) for comparison. This is a baseline exam. Findings: Bilateral CC and MLO views were obtained. This examination was reviewed with the aid of a computer-aided detection system(CAD). The breast tissue is dense. No discrete abnormality Procedure Note Geneva Vital MD - 06/23/2022 Bilateral Mammogram Reason for Exam: Screening Comparison: [...] or Most Recently Relevant to Health Maintenance Care Teams Car Changer Relationship Specialty Start Date End Date Syed Frederick MD [address] [place] [address] PCP - General 11/14/06
--- NOTE | 2024-12-27 14:09 | CT_ITS ---
WS: [id number] CT NECK WITH CONTRAST HISTORY: throat swelling/hx of breast cancer TECHNIQUE: Contiguous 2 mm axial images are performed through the neck with intravenous contrast. Sagittal and coronal reformats are also submitted. All CT scans at [facility] use at least one of these dose optimization techniques: automated exposure control; mA and/or kV adjustment per patient size (includes targeted exams where dose is matched to clinical indication); or iterative reconstruction. CONTRAST: CONTRAST: Omnipaque 350; 100 mL IV. DLP: 182.17 mGy.cm COMPARISON: None available. Nasopharynx, oropharynx, hypopharynx and larynx are unremarkable. No soft tissue masses or abnormal enhancement. No narrowing of the airway. No subglottic stenosis. No laryngeal stenosis. No significant stenosis. There is very slight narrowing at the level of the vocal cords but this is not a high-grade stenosis. No edema in the soft tissues. No adenopathy. Torus tubarius and fossa of Rosenmuller and parapharyngeal fat are normal. No significant lymphadenopathy is identified. Thyroid gland and salivary glands are normally enhancing with no masses. No osseous abnormalities. Visualized portions of the skull base demonstrate no abnormalities. Orbits and globes are within normal limits. No soft tissue masses. Visualized paranasal sinuses and mastoid air cells are normal. Very subtle areas of groundglass attenuation in the RIGHT upper lobe. Also seen on prior chest CT. CT/CT neck w con* [id number] IMPRESSION: 1. No cervical chain adenopathy. 2. No high-grade oropharyngeal airway stenosis. There is very slight narrowing at the level of the vocal cords but not considered significant. Similar to the prior study of 11/06/2018. 3. Scattered subtle areas of groundglass attenuation RIGHT upper lobe. Favor p neumonitis or small vessel airways disease. May be related to patient's chemoth erapy treatment. 4. No SVC syndrome.
--- NOTE | 2024-12-27 14:23 | CT_ITS ---
WS: [id number] CT CHEST, ABDOMEN AND PELVIS WITH CONTRAST HISTORY: neck swelling, sent by oncology, elevated LFTs, history of breast cancer. TECHNIQUE: Contiguous 5 mm axial imaging performed through the chest, abdomen and pelvis with IV contrast, oral contrast has not been provided. Coronal and sagittal reformats chest. Coronal and sagittal reformats through the abdomen and pelvis. All CT scans at [facility] use at least one of these dose optimization techniques: automated exposure control; mA and/or kV adjustment per patient size (includes targeted exams where dose is matched to clinical indication); or iterative reconstruction. CONTRAST: Omnipaque 350; 100 mL IV. DLP: 560.45 mGy.cm COMPARISON: 08/24/2024 CT abdomen and pelvis. Chest CT: Scattered subsegmental areas of groundglass attenuation RIGHT upper and RIGHT lower lobe. There is no mass. LEFT lung is clear. No pericardial or pleural effusions. Heart size is normal. No mediastinal or hilar adenopathy. Normal aorta and pulmonary artery. No SVC syndrome. Postsurgical changes RIGHT breast and RIGHT axilla. Abdomen CT: Normal liver, spleen and pancreas. No adrenal mass. Normal pancreas. Cortical hypodensities in the RIGHT kidney are stable since 11/06/2018. There is no renal obstruction. No perinephric stranding. Mild atherosclerosis aorta. No ascites or adenopathy. No GI tract obstruction. No colitis. Mild constipation. Mild diverticular disease in the sigmoid colon. Prior appendectomy. Pelvic CT: Normal urinary bladder. Uterus is midline. Tiny amount of free fluid in the pelvis is probably physiologic. CT/CT chest abdpel w/*[id number] IMPRESSION: 1. No SVC syndrome. 2. Scattered subsegmental areas of groundglass attenuation in the RIGHT upper and RIGHT lower lobes. This can be seen with small vessel disease and pneumonit is. 3. No mediastinal or hilar adenopathy. 4. No metastatic disease in the abdomen or pelvis. 5. Prior appendectomy. 6. Small amount of physiologic free fluid in the pelvis. 7. Lumpectomy RIGHT breast and RIGHT axillary martin dissection.
--- NOTE | 2024-12-27 14:29 | W.ED.RECABL ---
HPI - Recheck/Abnormal Lab/Rx General: Chief Complaint: Recheck/Abnormal Lab/Rx Stated Complaint: Urgent CT Per doc Time Seen by Provider: 12/27/24 14:09 Source: patient Mode of arrival: ambulatory Limitations: no limitations History of Present Illness: This patient is a 49-year-old female with a history of stage II triple negative breast cancer, currently under the care of oncology here at [facility] and has seen breast surgery at [place] in [place]. Recently completed chemotherapy where she was on carboplatin and pembrolizumab, as well as radiation therapy. Over the past month, she has been experience intermittent swelling involving her throat, which is worse in the mornings. This also involves her face and eyes, she states that she will lay on 1 side in the morning note that the side is more swollen, and this will improve throughout the day. She also notes intermittent swelling in her hands and feet. 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 She reports that she has been treated for allergies as well as bronchitis with no relief. She previously had a port for chemotherapy administration, stating it was removed in October. She had blood panel performed earlier today, there was elevation her LFTs and oncology had ordered for a CT scan with contrast of her neck, chest, and abdomen. She is not reporting any acute shortness of breath, chest pain, dysphagia rest, and states that her throat swelling is actually much improved at this time. She states that just a couple of hours ago with her oncology appointment however it was significantly more swollen. Her vitals are stable at this time, there is no stridor and she is nontoxic-appearing. MD complaint: other (Throat swelling, sent by oncology for urgent CT) Initial visit (ago): week(s) Related Data Home Medications ?Medication ?Instructions ?Recorded ?Confirmed albuterol sulfate 2.5 mg/3 mL 2.5 mg inhalation Q4H PRN 07/05/23 12/27/24 (0.083 %) solution for nebulization Shortness Of Breath albuterol sulfate 90 mcg/actuation 1 puff inhalation Q4H PRN 07/05/23 12/27/24 aerosol inhaler Shortness Of Breath atenolol 25 mg tablet 25 mg PO BID heart palpitations 05/31/24 12/27/24 budesonide-formoterol HFA 160 2 puff inhalation BID PRN Allergy 05/31/24 12/27/24 mcg-4.5 mcg/actuation aerosol Symptoms inhaler (Symbicort) triamcinolone acetonide 10 mg/mL 10 mg SUBCUT .[id number] 05/31/24 12/27/24 suspension for injection (Kenalog) vitamin D3 125 mcg (5,000 1 cap PO DAILY 05/31/24 12/27/24 unit)-vitamin K2 180 mcg capsule (K2-D3 Max) Previous Rx's ?Medication ?Instructions ?Recorded epinephrine 0.3 mg/0.3 mL 0.3 mg (0.3 mL) IM Q1H PRN 06/20/24 injection, auto-injector (EpiPen anaphylaxis #2 ea 2-Iglesia) ondansetron HCl 4 mg tablet 4 mg PO Q6H PRN nausea and 07/12/24 vomiting #30 tabs levothyroxine 100 mcg capsule 100 mcg PO DAILY #30 caps 12/27/24 Allergies Allergy/AdvReac Type Severity Reaction Status Date / Time carboplatin Allergy Severe ADR-hives Verified 12/27/24 11:19 chlorhexidine (From Allergy Unknown ALGY-Hives Verified 12/27/24 11:19 ChloraPrep Clear) yellow dye Allergy Unknown Verified 12/27/24 11:19 Review of Systems General: Reports: 10 or more systems reviewed and unremarkable except in HPI and below Const: Denies: fever(s), chills or fatigue Eyes: Denies: change in vision ENMT: Reports: other (Throat/neck/face/periorbital swelling); Denies: throat pain, odynophagia, hoarseness, swelling of lips/tongue, ear or mastoid pain or nasal discharge Card: Denies: chest pain, palpitations, swelling of feet/ankles or lightheadedness Resp: Denies: dyspnea, productive cough or wheezing GI: Denies: abdominal pain, nausea, vomiting, diarrhea or constipation : Denies: flank pain, difficulty voiding, dysuria or urinary frequency Musc: Reports: extremity swelling (Hands and feet); Denies: neck pain, back pain, extremity pain or joint pain Skin/Breast: Denies: rash Neuro: Denies: headache(s), numbness in extremities or weakness in extremities PFSH ED PFSH: Family History Father Diabetes Social History Smoking and tobacco/nicotine status: never used tobacco/nicotine Second hand smoke exposure: No Alcohol intake: never Substance/Drug Use: never Additional social history: Wants full code discussed in the presence of her sister and mother 08/23/2024 Adopted: No Caregiver/support person: No Lives independently: Yes Household members: significant other Housing: House Marital status: Number of children: 0 Highest education level completed: Associate Degree: Occupational, Technical, Vocational Program service: No Current occupational status: employed Physical Exam Const: COMMON NORMALS: no acute distress, patient oriented x3 and no limitations GENERAL APPEARANCE: cooperative, comfortable and well developed ORIENTATION/CONSCIOUSNESS: Yes awake, Yes oriented to person, Yes oriented to place and Yes oriented to time OTHER: Nontoxic-appearing, no respiratory distress HENMT: COMMON NORMALS: normocephalic, atraumatic and hearing grossly normal bilaterally HEAD & SCALP: normocephalic and atraumatic Eye: COMMON NORMALS: Equal, round and reactive pupils present, EOMs intact bilaterally and conjunctivae normal CONJUNCTIVA: Yes conjunctivae normal PUPIL: Yes Equal, round and reactive pupils present OTHER: No significant periorbital edema appreciated at this time Neck/C-Spine: COMMON NORMALS: full ROM and no JVD OTHER: Mild fullness of the neck, nontender to palpation with no palpable mass Chest: OTHER: Port incision left anterior chest wall, appears well with no signs of infection Resp: COMMON NORMALS: normal respiratory effort, No retractions, No use of accessory muscles and clear to auscultation bilaterally AUSCULTATION: clear to auscultation bilaterally OTHER: No stridor Cardio: COMMON NORMALS: no JVD, regular rate, regular rhythm, No clicks present (Cardio), No murmurs present (Cardio) and No rub (Cardio) RATE: regular rate RHYTHM: regular rhythm GI: COMMON NORMALS: Normal to inspection, nondistended, normoactive bowel sounds present, Soft to palpation and non-tender AUSCULTATION: Yes normoactive bowel sounds PALPATION: Yes Soft to palpation RECTAL EXAM: deferred Extremity: COMMON NORMALS: normal to inspection, full ROM and capillary refill normal Neuro: COMMON NORMALS: patient oriented x3, moves all extremities, no focal motor deficits and no sensory deficits noted SENSORIUM/ORIENTATION: Yes oriented to person, Yes oriented to place and Yes oriented to time Skin: COMMON NORMALS: no rashes or lesions noted GENERAL SKIN EXAM: no rashes or lesions noted Course Vital Signs: Vital signs: Vital Signs Temperature 98.1 F 12/27/24 13:46 Pulse Rate 62 12/27/24 16:00 Respiratory Rate 16 12/27/24 13:46 Blood Pressure 168/109 12/27/24 16:00 Pulse Oximetry 98 12/27/24 16:00 Oxygen Delivery Me thod Room Air 12/27/24 16:00 MDM - Recheck/Abnormal Lab/Rx Medical Decision Making This patient is a 49-year-old female with history of stage II triple negative breast cancer, recently completed chemotherapy of carboplatin and pembrolizumab, and radiation therapy, who presented with intermittent throat, hand, and foot swelling over the past month. She was previously evaluated for possible bronchitis without improvement. Given her history and presentation, oncology raise concern for superior vena cava syndrome and was sent over from her office visit. The patient underwent CT neck and chest, which was reassuring with no evidence of SVC obstruction or mass effect. CT abdomen pelvis was also unremarkable, she had some LFT elevation with her labs earlier and this was to rule out any acute abdominal pathology. Laboratory evaluation revealed a markedly elevated TSH of 117.3, consistent with hypothyroidism, likely immune related secondary to pembrolizumab. Other labs are unremarkable, her creatinine was 1.2, she was pretreated with 500 mL liter normal saline prior to contrast administration. I spoke to Dr. Bernardo, patient's oncologist, to report these findings and recommending start on 100 mcg of levothyroxine and have the patient follow-up. She is appropriate for discharge home with clear return precautions. Lab Data 12/27/24 14:21 12/27/24 14:[address] 12/27/24 14:09 IMPRESSION: 1. No cervical chain adenopathy. 2. No high-grade oropharyngeal airway stenosis. There is very slight narrowing at the level of the vocal cords but not considered significant. Similar to the prior study of 11/06/2018. 3. Scattered subtle areas of groundglass attenuation RIGHT upper lobe. Favor pneumonitis or small vessel airways disease. May be related to patient's chemotherapy treatment. 4. No SVC syndrome. Chest/Abdomen/Pelvis CT 12/27/24 14:23 IMPRESSION: 1. No SVC syndrome. 2. Scattered subsegmental areas of groundglass attenuation in the RIGHT upper and RIGHT lower lobes. This can be seen with small vessel disease and pneumonitis. 3. No mediastinal or hilar adenopathy. 4. No metastatic disease in the abdomen or pelvis. 5. Prior appendectomy. 6. Small amount of physiologic free fluid in the pelvis. 7. Lumpectomy RIGHT breast and RIGHT axillary martin dissection. Laboratory Results WBC 5.69 10^3/uL (3.29-11.43) 12/27/24 14:21 RBC 5.28 10^6/uL (3.85-5.65) 12/27/24 14:21 Hgb 16.20 g/dL (11.27-16.99) 12/27/24 14:21 Hct 47.7 % (36-47) H 12/27/24 14:21 MCV 90.3 fl (85-98) 12/27/24 14:21 MCH 30.7 pg (27-33) 12/27/24 14:21 MCHC 34.0 g/dL (30-55) 12/27/24 14:21 RDW 14.6 % (12.1-15.1) 12/27/24 14:21 Plt Count 186 10^3/cmm (157-399) 12/27/24 14:21 MPV 9.1 fL (7.4-10.4) 12/27/24 14:21 Neut % (Auto) 64.6 % 12/27/24 14:21 Lymph % (Auto) 21.4 % 12/27/24 14:21 Baldwin % (Auto) 9.3 % 12/27/24 14:21 Eos % (Auto) 3.3 % 12/27/24 14:21 Baso % (Auto) 0.7 % 12/27/24 14:21 Neut # (Auto) 3.67 10^3/uL (1.8-7.7) 12/27/24 14:21 Lymph # (Auto) 1.2 10^3/uL (0.8-4.8) 12/27/24 14:21 Baldwin # (Auto) 0.5 10^3/uL (0.2-0.9) 12/27/24 14:21 Eos # (Auto) 0.2 10^3/uL (0.0-0.8) 12/27/24 14:21 Baso # (Auto) 0.0 10^3/uL (0.0-0.1) 12/27/24 14:21 Nucleated RBC % (auto) 0 % 12/27/24 14:21 Nucleated RBCs # 0.0 /100WBC 12/27/24 14:21 ESR 10 mm/hr (0-15) 12/27/24 14:21 PT 12.70 SECONDS (12.1-14.9) 12/27/24 14:21 INR 0.89 (0.8-1.2) 12/27/24 14:21 APTT 30.3 SECONDS (23.9-36.7) 12/27/24 14:21 Sodium 141 mmol/L (136-145) 12/27/24 14:21 Potassium 4.0 mmol/L (3.5-5.1) 12/27/24 14:21 Chloride 101 mmol/L (98-107) 12/27/24 14:21 Carbon Dioxide 24 mmol/L (22-29) 12/27/24 14:21 Anion Gap 20.0 (5-19) H 12/27/24 14:21 BUN 19 mg/dL (6-20) 12/27/24 14:21 Creatinine 1.2 mg/dL (0.5-0.9) H 12/27/24 14:21 GFR Calculation 47.4 mL/min (90-130) L 12/27/24 14:21 Glucose 96 mg/dL (65-115) 12/27/24 14:21 Calculated Osmolality 294 mOsm/kg (285-295) 12/27/24 14:21 Calcium 10.3 mg/dL (8.5-10.5) 12/27/24 14:21 Total Bilirubin 1.4 mg/dL (0.15-1.2) H 12/27/24 14:21 AST 44 U/L (0-32) H 12/27/24 14:21 ALT 47 U/L (0-33) H 12/27/24 14:21 Alkaline Phosphatase 82 U/L (35-105) 12/27/24 14:21 C-Reactive Protein 3.0 mg/L (0.0-4.9) 12/27/24 14:21 Total Protein 8.6 g/dL (6.6-8.7) 12/27/24 14:21 Albumin 5.0 g/dL (3.5-5.2) 12/27/24 14:21 Globulin 3.6 g/dL (1.3-4.6) 12/27/24 14:21 TSH 117.30 uIU/mL (0.27-4.20) H 12/27/24 14:21 All radiology interpretation(s) finalized by discharge Discharge Plan Discharge Patient Disposition: Home Clinical Impression: Generalized edema Hypothyroid Qualifiers: Hypothyroidism type: unspecified Qualified Code(s): E03.9 - Hypothyroidism, unspecified Condition: Stable Prescriptions: New levothyroxine 100 mcg capsule 100 mcg PO DAILY Qty: 30 0RF No Action atenolol 25 mg tablet 25 mg PO BID budesonide-formoterol [Symbicort] 160-4.5 mcg/actuation HFA aerosol inhaler 2 puff inhalation BID PRN (Reason: Allergy Symptoms) Kenalog 10 mg/mL suspension 10 mg SUBCUT .[id number] Rx Instructions: inject into site as ten - 1 mg doses greater than or equal to 1 cm apart K2-D3 Max 125 mcg (5,000 unit)-180 mcg capsule 1 cap PO DAILY epinephrine [EpiPen 2-Iglesia] 0.3 mg/0.3 mL auto-injector 0.3 mg IM Q1H PRN (Reason: anaphylaxis) Qty: 2 2RF Rx Instructions: do not exceed 12 doses per 24 hrs ondansetron HCl 4 mg tablet 4 mg PO Q6H PRN (Reason: nausea and vomiting) Qty: 30 3RF albuterol sulfate 2.5 mg /3 mL (0.083 %) solution for nebulization 2.5 mg inhalation Q4H PRN (Reason: Shortness Of Breath) albuterol sulfate 90 mcg/actuation HFA aerosol inhaler 1 puff INHALATION Q4H PRN (Reason: Shortness Of Breath) Discharge Orders: Discharge ED (Routine); Ordered 12/27/24 Ordered By: Irving Aburto Referrals: Isabela Cancino NP [Primary Care Provider, Nurse Practitioner] Patient Instructions: Patient Portal & Sherrie Instructions Activity Restrictions/Additional Instructions: Hypothyroidism Discharge Instructions Diagnosis: Primary hypothyroidism, likely contributing to intermittent edema. No evidence of SVC syndrome or other acute abnormality on CT imaging. Medication: - Start levothyroxine 100 mcg orally once daily. - Take levothyroxine on an empty stomach, ideally 30?60 minutes before breakfast, with water. Alternatively, it may be taken in the evening at least 2 hours after the last meal. - Avoid taking levothyroxine within 4 hours of calcium or iron supplements, antacids, or medications that may interfere with absorption (e.g., proton pump inhibitors, phosphate binders). - Do not switch between different brands or formulations of levothyroxine unless directed by your healthcare provider, as this may affect thyroid hormone levels. Monitoring and Follow-up: - Thyroid function (TSH) should be rechecked in 6?8 weeks to assess response and guide dose adjustment. - Once TSH is normalized, annual monitoring is recommended, or sooner if there is a significant change in weight (>4.5 kg), new symptoms, or new medications affecting thyroid function. - Continue regular follow-up with oncology as previously arranged. Expected Course and Symptom Resolution: - Clinical symptoms such as fatigue, edema, weight gain, and cognitive changes may improve gradually over weeks to months as thyroid hormone levels normalize. - Some manifestations (e.g., chronic skin changes, edema) may take up to 3?6 months to resolve after TSH normalization. Return Precautions: Seek immediate medical attention for any of the following: - Chest pain, palpitations, or new/worsening shortness of breath (possible cardiac effects from over- or undertreatment). - Severe weakness, confusion, or altered mental status (possible myxedema coma or other acute complications). - New or worsening swelling of the face, neck, or upper extremities, especially if associated with difficulty breathing or swallowing (to rule out SVC syndrome recurrence or other acute process). - Signs of overtreatment: tremor, anxiety, insomnia, heat intolerance, unexplained weight loss, or rapid heartbeat. Additional Instructions: - Adherence to daily medication is essential for optimal management. - Inform all healthcare providers of your hypothyroidism diagnosis and levothyroxine therapy. - Do not discontinue levothyroxine without medical advice. Contact Information: For questions or concerns, contact your primary care provider or oncologist. For urgent issues, return to the emergency department. Print Language: Vincentian Coding Level of Care Code ED Two Needle Machine Operator for Petty Murphy
[2024-12-27 14:35] LABS: Hematocrit 47.7 % (36-47); Hemoglobin 16.20 g/dL (11.27-16.99); Mean Corpuscular HGB Conc 34.0 g/dL (30-55); Mean Corpuscular Hemoglobin 30.7 pg (27-33); Mean Corpuscular Volume 90.3 fl (85-98); Nucleated Red Blood Cells % 0 %; Platelet Count 186 10^3/cmm (157-399); Red Blood Count 5.28 10^6/uL (3.85-5.65); White Blood Count 5.69 10^3/uL (3.29-11.43)
[2024-12-27 14:46] LABS: INR 0.89 (0.8-1.2); Prothrombin Time 12.70 SECONDS (12.1-14.9)
[2024-12-27 14:47] LABS: Partial Thromboplastin Time 30.3 SECONDS (23.9-36.7)
[2024-12-27 15:03] LABS: Alanine Aminotransferase 47 U/L (0-33); Albumin Level 5.0 g/dL (3.5-5.2); Alkaline Phosphatase 82 U/L (35-105); Anion Gap 20.0 (5-19); Aspartate Amino Transferase 44 U/L (0-32); Blood Urea Nitrogen 19 mg/dL (6-20); Calcium 10.3 mg/dL (8.5-10.5); Carbon Dioxide 24 mmol/L (22-29); Chloride 101 mmol/L (98-107); Creatinine Clr Calc Pharmacy 51.7089; Globulin 3.6 g/dL (1.3-4.6); Glucose 96 mg/dL (65-115); Osmolality Calculated 294 mOsm/kg (285-295); Potassium 4.0 mmol/L (3.5-5.1); Sodium 141 mmol/L (136-145); Total Protein 8.6 g/dL (6.6-8.7)
[2024-12-27] MEDS: iohexol 350 mg/mL 500 mL Btl (per mL) IV (15:19)
[2024-12-27 15:24] LABS: Thyroid Stimulating Hormone 117.30 uIU/mL (0.27-4.20)
[2024-12-27 16:00] VITALS: BP 168/109; PULSE 62; O2SAT 98
== END 2024-12-27 16:15 | disposition home or self-care (01) ==
PROVIDERS: Emergency Provider Physician Assistant; PCP Nurse Practitioner
DX: E03.9 Hypothyroidism, unspecified (principal); R60.0 Localized edema; Z85.3 Personal history of malignant neoplasm of breast
CPT/HCPCS: 36415; 70491; 71260; 74177; 80053; 84443; 85025; 85610; 85651; 85730; 86140; 96360; 99285; J7040

== ENCOUNTER 2025-01-01 11:31 | Oncology outpatient (recurring) (ONCR) | payer BC, SELFPAY ==
[2024-12-27 12:10] LABS: Hematocrit 42.1 % (36-47); Hemoglobin 14.20 g/dL (11.27-16.99); Mean Corpuscular HGB Conc 33.7 g/dL (30-55); Mean Corpuscular Hemoglobin 30.7 pg (27-33); Mean Corpuscular Volume 90.9 fl (85-98); Nucleated Red Blood Cells % 0 %; Platelet Count 171 10^3/cmm (157-399); Red Blood Count 4.63 10^6/uL (3.85-5.65); White Blood Count 5.95 10^3/uL (3.29-11.43)
[2024-12-27 12:26] LABS: Alanine Aminotransferase 42 U/L (0-33); Albumin Level 4.3 g/dL (3.5-5.2); Alkaline Phosphatase 70 U/L (35-105); Aspartate Amino Transferase 40 U/L (0-32); Blood Urea Nitrogen 21 mg/dL (6-20); Calcium 9.7 mg/dL (8.5-10.5); Carbon Dioxide 24 mmol/L (22-29); Chloride 105 mmol/L (98-107); Creatinine Clr Calc Pharmacy 44.3219; Globulin 3.0 g/dL (1.3-4.6); Glucose 91 mg/dL (65-115); Magnesium 2.3 mg/dL (1.7-2.3); Osmolality Calculated 293 mOsm/kg (285-295); Sodium 140 mmol/L (136-145); Total Protein 7.3 g/dL (6.6-8.7)
[2024-12-27 12:33] LABS: Anion Gap 15.0 (5-19); Potassium 4.0 mmol/L (3.5-5.1)
[2025-01-01 12:46] LABS: Free T4 Free Thyroxine 0.33 ng/dL (0.82-1.77); Thyroid Stimulating Hormone 88.89 uIU/mL (0.27-4.20); Uric Acid 5.8 mg/dL (2.4-5.7)
[2025-01-01 13:19] LABS: Vitamin B12 780 pg/mL (232-1245)
== END 2025-01-22 23:59 | disposition home or self-care (01) ==
PROVIDERS: Internal Medicine; PCP Nurse Practitioner; Visit Provider Nurse Practitioner
DX: R79.89 Other specified abnormal findings of blood chemistry; M79.10 Myalgia, unspecified site; R60.1 Generalized edema; M25.50 Pain in unspecified joint; Z53.9 Procedure and treatment not carried out, unspecified reason
CPT/HCPCS: 36415; 80053; 82085; 82306; 82550; 82607; 83615; 83735; 84100; 84439; 84443; 84550; 85025; 85651; 86140; 86200; 86431

== ENCOUNTER 2025-01-21 08:56 | Emergency (ER) | payer BC, SELFPAY ==
--- OUTSIDE RECORDS SUMMARY | 2025-01-21 09:06 | XMS_ITS | Encounter Summary ---
Author Organization [facility] Address [address] Attn: [place] [address] Care Team Providers Care Consulting Technical Manager Name Role Phone Syed Frederick MD Primary Care Provider [phone] Encounter Details Date Type Department Care Team (Late st Contact Info) Description 05/10/2006 Outpatient Historical Marisabel Cuellar MD [address] 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
--- OUTSIDE RECORDS SUMMARY | 2025-01-21 09:07 | XMS_ITS | Clinical Summary ---
Author Organization [facility] Address [address] 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 WORKER Gender Identity Not on file Sexual Orientation Not on file Last Filed Vital Signs Vital Sign Reading Time Taken Comments Blood Pressure 126/74 05/16/2009 11:31 AM MILKING WORKER Pulse 78 05/16/2009 11:31 AM MILKING WORKER Temperature - - Respiratory Rate 18 05/16/2009 11:31 AM MILKING WORKER Oxygen Saturation - - Inhaled Oxygen Concentration - - Weight 64.4 kg (142 lb) 05/16/2009 11:31 AM MILKING WORKER Height 165.1 cm (5' 5 ) 05/14/2008 3:27 PM MILKING WORKER Body Mass Index 23.63 05/14/2008 3:27 PM MILKING WORKER Plan of Treatment Health Maintenance Due Date [...] IMAGR RFLX HPV Routine 05/16/2009 3:22 PM MILKING WORKER MAMMO SCREEN BILAT W OR WO CAD Routine 08/13/2008 10:29 AM CDT Other Screening Mammogram from Last 3 Months or Most Recently Relevant to Health Maintenance Results * CERV/VAG CYTOPATH, THIN PREP IMAGR RFLX HPV (05/16/2009 3:22 PM MILKING WORKER) Pathologist [facility] SORTING SUPERVISOR CYTOLOGY REPORT REFLEX HPV [facility] Anatomic Pathology Dept [facility] [address] Patient: ELLI VICTORIA Accn No: [id number] , [id number] Collected: 05/16/2009 3:22:00 PM SORTING SUPERVISOR PAP - REFLEX HPV History Specimen Type: Endocervical LMP: None Provided Previous Pap History: WNL 2008 Specimen Adequacy Satisfactory for interpretation. The smear shows sufficient numbers of endocervical or metaplastic cells. Diagnosis NEGATIVE FOR INTRAEPITHELIAL LESION OR MALIGNANCY. (Previously noted as Within Normal Limits). Detention Sergeant/ Pathologist: 05/22/09 Completed by: JESSIE BUSTOS (Electronically [...] treating physician in consultation with his/her patient. [facility] 05/16/2009 3:22 PM MILKING WORKER April Toro NP PATHOLOGY/CYTOLOGY ORDERABL ES Edited INTERFACE SYSTEM Refer to clinic/hospital department [facility] CLIA# [id number] Counts include 234 beds at the [facility] [place] [address] * MAMMO DIGITAL SCREEN BILAT (08/13/2008 10:29 [...] Recently Relevant to Health Maintenance Insurance [employer] Modern [employer] [facility] Granular [facility] GENER[facility] Care Teams Miller Apprentice Relationship Specialty Start Date End Date Syed Frederick MD [address] [place] [address] PCP - General 11/14/06
--- OUTSIDE RECORDS SUMMARY | 2025-01-21 09:07 | XMS_ITS | Encounter Summary ---
Author Organization [facility] Address [address] [place] [address] Care Team Providers Care Food Taster Name Role Phone Syed Frederick MD Primary Care Provider [phone] Encounter Details Date Type Department Care Team (Latest Contact Info) Description 05/12/2007 Outpatient Historical [facility] FY06 Marisabel Cuellar MD [address] [facility], [facility] [address] [place] [address] Routine Gynecological Examination Social History Tobacco Use Types Packs/Day Years Used Date Smoking Tobacco: Never Assessed Comments Unknown Sex and Gender Information Value Date Recorded Sex Assigned at Not on file 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
--- OUTSIDE RECORDS SUMMARY | 2025-01-21 09:07 | XMS_ITS | Encounter Summary ---
Author Organization [facility] Address [address] [place] [address] Care Team Providers Care Kiln Labourer Name Role Phone Syed Frederick MD Primary Care Provider [phone] Encounter Details Date Type Department Care Team (Late st Contact Info) Description 09/12/2006 Outpatient Historical [facility] [place] [address] [facility] [address] [place] [address] Marisabel Cuellar MD [address] [facility] Entr[address], [address] [place] [address] Unspecified Symptom Associated with 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 (Primary Dx) Social History Tobacco Use Types Packs/Day Years Used Date Smoking Tobacco: Never Assessed Comments Unknown Sex and Gender Information Value Date Recorded Sex Assigned at Not on file Legal Sex Female 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
--- OUTSIDE RECORDS SUMMARY | 2025-01-21 09:07 | XMS_ITS | Encounter Summary ---
Author Organization [facility] Address [address] [place] [address] Care Team Providers Care Sheet Metal Worker Supervisor Name Role Phone Syed Frederick MD Primary Care Provider [phone] Encounter Details Date Type Department Care Team (Late st Contact Info) Description 05/14/2008 Ancillary Orders [facility] [address] [facility] [address] [place] [address] Marisabel Cuellar MD [address] [facility], [facility] [address] [place] [address] Screening Mammogram Social History Tobacco Use Types Packs/Day Years Used Date Smoking Tobacco: Never Alcohol Use Standard Drinks/Week Comments No 0 (1 standard drink = 0.6 oz pur e alcohol) Comments No Sex and Gender Information Value Date Recorded Sex Assigned at Not on file Legal Sex Female 5:08 AM MOTEL CLERK Gender Identity Not on file Sexual Orientation Not on file documented as of this encounter Plan of Treatment Not on file documented as of this encounter Visit Diagnoses Diagnosis Screening mammogram Other screening mammogram documented in this encounter Care Teams Sheet Metal Worker Supervisor Relationship Specialty Start Date End Date Syed Frederick MD [address] [place] [address] PCP - General 11/14/06 documented as of this encounter
--- OUTSIDE RECORDS SUMMARY | 2025-01-21 09:07 | XMS_ITS | Encounter Summary ---
Author Organization [facility] Address [address] [place] [address] Care Team Providers Care Marketing Proposal Coordinator Name Role Phone Syed Frederick MD Primary Care Provider [phone] Encounter Details Date Type Department Care Team (Late st Contact Info) Description 11/14/2006 Outpatient Historical [facility] [place] [address] [facility] [address] [place] [address] Marisabel Cuellar MD [address] [facility] Entr[address], [address] [place] [address] Unspecified Symptom Associated with 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 (Primary Dx); Pelvic Peritoneal Adhesions, Female (Postoperative) (Postinfection) Social History Tobacco Use Types Packs/Day Years Used Date Smoking Tobacco: Never Assessed Comments Unknown Sex and Gender Information Value Date Recorded Sex Assigned at Not on file Legal Sex Female 5:08 AM APPEALS COORDINATOR Gender Identity Not on file Sexual Orientation Not on file documented as of this encounter Plan of Treatment Not on file documented as of this encounter Visit Diagnoses Diagnosis Unspecified symptom associated with female genital organs- Primary Pelvic peritoneal adhesions, female (postoperative) (postinfection) documented in this encounter Care Teams Marketing Proposal Coordinator Relationship Specialty Start Date End Date Syed Frederick MD [address] [place] [address] PCP - General 11/14/06 documented as of this encounter
--- OUTSIDE RECORDS SUMMARY | 2025-01-21 09:07 | XMS_ITS | Encounter Summary ---
Author Organization [facility] Address [address] [place] [address] Care Team Providers Care Media Center Director School Name Role Phone Syed Frederick MD Primary Care Provider [phone] Encounter Details Date Type Department Care Team (Late st Contact Info) Description 10/31/2006 Outpatient Historical [facility] [place] [address] [facility] [address] [place] [address] Marisabel Cuellar MD [address] [facility] [address], [address] [place] [address] Unspecified Pre-Operative Examination (Primary Dx) Social History Tobacco Use Types Packs/Day Years Used Date Smoking Tobacco: Never Assessed Comments Unknown Sex and Gender Information Value Date Recorded Sex Assigned at Not on file Legal Sex Female 5:08 AM LOG DATA TECHNICIAN Gender Identity Not on file Sexual Orientation Not on file documented as of this encounter Plan of Treatment Not on file documented as of this encounter Visit Diagnoses Diagnosis Preoperative examination, unspecified- Primary documented in this encounter Care Teams Media Center Director School Relationship Specialty Start Date End Date Syed Frederick MD [address] [place] [address] PCP - General 11/14/06 documented as of this encounter
--- OUTSIDE RECORDS SUMMARY | 2025-01-21 09:07 | XMS_ITS | Encounter Summary ---
Author Organization [facility] Address [address] [place] [address] Care Team Providers Care Equipment Sales Specialist Name Role Phone Syed Frederick MD Primary Care Provider [phone] Encounter Details Date Type Department Care Team (Late st Contact Info) Description 05/12/2007 Outpatient Historical [facility] [place] [address] [place] [address] Marisabel Cuellar MD [address] [facility] Entrance, [address] [place] [address] Social History Tobacco Use Types Packs/Day Years Used Date Smoking Tobacco: Never Assessed Comments Unknown Sex and Gender Information Value Date Recorded Sex Assigned at Not on file Legal Sex Female 5:08 AM SALES SERVICE EXECUTIVE Gender Identity Not on file Sexual Orientation Not on file documented as of this encounter Progress Notes * Marisabel Cuellar - 05/12/2007 12:00 AM CST 05/12/2007 Jana Riddle [id number] : 1975 ASSESSMENT AND PLAN: History of pelvic adhesions. The patient notes recurrence of her left lower quadrant pain over the last 4-6 weeks. She has been getting Depo-Provera at [facility] and she is due again the 2nd week of May. The patient states that [id number] Aleve usually relieves her pain. The patient [...] in 1 year or p.r.n. Please see STAIN REMOVER Assessment Form. Marisabel Cuellar M.D. LEAD SLOT TECHNICIAN, Lauren Electronically Signed by Marisabel Cuellar M.D. 05/23/2007 08:30 , A, 670 Job #: , Document #: [id number], cc: S SERVICE EXECUTIVE documented in this encounter Miscellaneous Notes * Letter - Marisabel Cuellar - 05/12/2007 12:00 AM CST 05/12/2007 Jana Riddle [address] [place] [address] Dear Ms. Riddle: I have received the [...] office if you have any questions. Sincerely, Marisable Cuellar M.D. LEAD SLOT TECHNICIANLauren Electronically Signed by Marisabel Cuellar M.D. 05/23/2007 08:30 , P, ads Job #: Document #: [id number] cc: S SERVICE EXECUTIVE documented in this encounter Plan of Treatment Not on file documented as of this encounter Visit Diagnoses Not on filedocumented in this encounter Care Teams Equipment Sales Specialist Relationship Specialty Start Date End Date Syed Frederick MD [address] [place] [address] PCP - General 11/14/06 documented as of this encounter
--- OUTSIDE RECORDS SUMMARY | 2025-01-21 09:07 | XMS_ITS | Encounter Summary ---
Author Organization [facility] Address [address] [facility] Attn: Epic Prelude ADT [place] [address] Care Team Providers Care Security System Installer Name Role Phone Syed Frederick MD Primary Care Provider [phone] Encounter Details Date Type Department Care Team (Late st Contact Info) Description 03/19/2008 Outpatient Historical Marisabel Cuellar MD [address] [facility] [place] [address] Social History Tobacco Use Types Packs/Day Years Used Date Smoking Tobacco: Never Alcohol Use Standard Drinks/Week Comments No 0 (1 standard drink = 0.6 oz pur e alcohol) Comments No Sex and Gender Information Value Date Recorded Sex Assigned at Not on file Legal Sex Female 5:08 AM FASHION EDITOR Gender Identity Not on file Sexual Orientation Not on file documented as of this encounter Plan of Treatment Not on file documented as of this encounter Procedures Procedure Name Priority Date/Time Associated Diagnosis Comments GC, GENITAL Routine 03/19/2008 3:34 PM FASHION EDITOR CHLAMYDIA, GENITAL Routine 03/19/2008 3: 34 PM FASHION EDITOR documented in this encounter Results * GC DNA AMPLIFICATION (03/19/2008 3:34 PM FASHION EDITOR) FINAL REPORT DNA Amplification Assay: negative for [...] genital system (specimen) (Endocervical) 03/19/2008 3:34 PM FASHION EDITOR 03/19/2008 8:09 PM FASHION EDITOR Marisabel Cuellar MD MICROBIOLOGY - GENERAL ORD ERABLES Final Result Performing Organization Address City/[facility] [[email or web address]] Co de Phone Number INTERFACE SYSTEM Refer to clinic/hospital department * CHLAMYDIA DNA AMPLIFICATION (03/19/2008 3:34 PM FASHION EDITOR) FINAL REPORT DNA Amplification Assay: negative for [...] genital system (specimen) (Endocervical) 03/19/2008 3:34 PM FASHION EDITOR 03/19/2008 8:09 PM FASHION EDITOR Marisabel Cuellar MD MICROBIOLOGY - GENERAL ORD ERABLES Final Result Performing Organization Address City/[facility] [[email or web address]] Co de Phone Number INTERFACE SYSTEM Refer to clinic/hospital department documented in this encounter Visit Diagnoses Not on filedocumented in this encounter Care Teams Security System Installer Relationship Specialty Start Date End Date Syed Frederick MD [address] [place] [address] PCP - General 11/14/06 documented as of this encounter
--- OUTSIDE RECORDS SUMMARY | 2025-01-21 09:07 | XMS_ITS | Encounter Summary ---
Author Organization [facility] Address [address] [place] [address] Care Team Providers Care Contour Stitcher Name Role Phone Syed Frederick MD Primary Care Provider [phone] Encounter Details Date Type Department Care Team (Late st Contact Info) Description 05/12/2007 Outpatient Historical [facility] [address] [place] [address] Social History Tobacco Use Types Packs/Day Years Used Date Smoking Tobacco: Never Assessed Comments Unknown Sex and Gender Information Value Date Recorded Sex Assigned at Not on file Legal Sex Female 5:08 AM DIRECTOR MEETINGS Gender Identity Not on file Sexual Orientation Not on file documented as of this encounter Plan of Treatment Not on file documented as of this encounter Visit Diagnoses Not on filedocumented in this encounter Care Teams Contour Stitcher Relationship Specialty Start Date End Date Syed Frederick MD [address] [place] [address] PCP - General 11/14/06 documented as of this encounter
--- OUTSIDE RECORDS SUMMARY | 2025-01-21 09:07 | XMS_ITS | Encounter Summary ---
Author Organization [facility] Address [address] [place] [address] Care Team Providers Care Consumer Lender Name Role Phone Syed Frederick MD Primary Care Provider Encounter Details Date Type Department Care Team (Late st Contact Info) Description 11/25/2006 Outpatient Historical [facility] [place] [address] [address] [address] [place] [address] Marisabel Cuellar MD [address] [facility] En[address], [address] [place] [address] Follow-Up Examination, Following Unspecified Surgery (Primary Dx) Social History Tobacco Use Types Packs/Day Years Used Date Smoking Tobacco: Never Assessed Comments Unknown Sex and Gender Information Value Date Recorded Sex Assigned at Not on file Legal Sex Female 5:08 AM FENCE POST CUTTER Gender Identity Not on file Sexual Orientation Not on file documented as of this encounter Plan of Treatment Not on file documented as of this encounter Visit Diagnoses Diagnosis Follow-up examination, following unspecified surgery- Primary documented in this encounter Care Teams Consumer Lender Relationship Specialty Start Date End Date Syed Frederick MD [address] [place] [address] PCP - General 11/14/06 documented as of this encounter
--- OUTSIDE RECORDS SUMMARY | 2025-01-21 09:07 | XMS_ITS | Clinical Summary ---
Author Organization [facility] Address [address] [facility] [address] Restrepo: Epic Prelude ADT [place] [address] Care Team Providers Care Alternative Dispute Resolution Mediator Name Role Phone Syed Frederick MD Primary Care Provider [phone] Allergies No known active allergies Active Problems Problem Noted Date Diagnosed Date Unspecified symptom associated with female genit al organs 03/25/2008 PID (pelvic inflammatory disease) 03/25/2008 Overview (08/21/2020): Updating IMO/ICD9 Code and Description Encounters Date Type Department Care Team Description 01/09/2025 External Device Data [facility] ABSTRACTION Provider, Abstract 01/08/2025 External Device Data [facility] ABSTRACTION Provider, Abstract 01/08/2025 External Device Data [facility] ABSTRACTION Provider, Abstract 01/02/2025 Telephone [facility] [address] [place] [address] Fernanda Salvador Appointment Notification from Last 3 Months Family History Medical History Relation Name Comments [...] on file Legal Sex Female 2:05 AM STATIONARY ENGINEER APPRENTICE Gender Identity Not on file Sexual Orientation Not on file Plan of Treatment Upcoming Encounters Date Type Department Care Team (Late st Contact Info) Description 06/06/2025 1:45 PM STATIONARY ENGINEER APPRENTICE Office Visit [facility] Endocrinology [facility] [address] [place] [address] Miles Domínguez MD [address] [place] [address] Health Maintenance Due Date Last Done Comments [...] Recently Relevant to Health Maintenance Care Teams Alternative Dispute Resolution Mediator Relationship Specialty Start Date End Date Syed Frederick MD [address] [place] [address] PCP - General 11/14/06
--- OUTSIDE RECORDS SUMMARY | 2025-01-21 09:07 | XMS_ITS | Encounter Summary ---
Author Organization [facility] Address [address] [place] [address] Care Team Providers Care Transition Coach Name Role Phone Syed Frederick MD Primary Care Provider Encounter Details Date Type Department Care Team (Latest Contact Info) Description 11/14/2006 Outpatient Historical [facility] [address] [place] [address] Marisabel Cuellar MD [address] [facility] [place] [address] Unspecified Symptom Associated with 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 (Primary Dx) Social History Tobacco Use Types Packs/Day Years Used Date Smoking Tobacco: Never Assessed Comments Unknown Sex and Gender Information Value Date Recorded Sex Assigned at Not on file Legal Sex Female 5:08 AM WET MACHINE CUTTER Gender Identity Not on file Sexual Orientation Not on file documented as of this encounter Plan of Treatment Not on file documented as of this encounter Visit Diagnoses Diagnosis Unspecified symptom associated with female genital organs- Primary documented in this encounter Care Teams Transition Coach Relationship Specialty Start Date End Date Syed Frederick MD [address] [place], [place] [address] PCP - General 11/14/06 documented as of this encounter
--- OUTSIDE RECORDS SUMMARY | 2025-01-21 09:07 | XMS_ITS | Encounter Summary ---
Author Organization [facility] Address [address] [place] [address] Care Team Providers Care Adult Protective Caseworker Name Role Phone Syed Frederick MD Primary Care Provider [phone] Encounter Details Date Type Department Care Team (Latest Contact Info) Description 05/10/2006 Outpatient Historical [facility] [address] [place] [address] Gregor Oconnell MD [address] [place] [address] Abdominal Pain, Unspecified Site (Primary Dx) Social History Tobacco Use Types Packs/Day Years Used Date Smoking Tobacco: Never Assessed Comments Unknown Sex and Gender Information Value Date Recorded Sex Assigned at Not on file Legal Sex Female 5:08 AM CARAMEL COLORING OPERATOR Gender Identity Not on file Sexual Orientation Not on file documented as of this encounter Plan of Treatment Not on file documented as of this encounter Visit Diagnoses Diagnosis Abdominal pain, unspecified site- Primary documented in this encounter Care Teams Adult Protective Caseworker Relationship Specialty Start Date End Date Syed Frederick MD [address] [place] [address] PCP - General 11/14/06 documented as of this encounter
--- OUTSIDE RECORDS SUMMARY | 2025-01-21 09:07 | XMS_ITS | Encounter Summary ---
Author Organization [facility] Address [address] [place] [address] Care Team Providers Care Director Of Music Therapy Name Role Phone Syed Frederick MD Primary Care Provider [phone] Encounter Details Date Type Department Care Team (Latest Contact Info) Description 05/10/2006 Outpatient Historical [facility] [address] [facility] [facility] [address] [place] [address] Marisabel Cuellar MD [address] [facility] [address], [address] [place] [address] Routine Medical Exam (Primary Dx); Routine Gynecological Examination; Unspecified Symptom Associated with 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 Social History Tobacco Use Types Packs/Day Years Used Date Smoking Tobacco: Never Assessed Comments Unknown Sex and Gender Information Value Date Recorded Sex Assigned at Not on file Legal Sex Female 5:08 AM MANAGER SERVICES Gender Identity Not on file Sexual Orientation Not on file documented as of this encounter Plan of Treatment Not on file documented as of this encounter Visit Diagnoses Diagnosis Routine medical exam- Primary Routine general medical examination at a health care facility Routine gynecological examination Unspecified symptom associated with female genital organs documented in this encounter Care Teams Director Of Music Therapy Relationship Specialty Start Date End Date Syed Frederick MD [address] [place] [address] PCP - General 11/14/06 documented as of this encounter
--- OUTSIDE RECORDS SUMMARY | 2025-01-21 09:07 | XMS_ITS | Patient Health Record ---
Author Organization [facility] Address [address] [place] [address] Care Team Providers Care Engine Turner Name Role Phone Isabela Cancino Primary Care Provider Cristian Tripp Unavailable [phone] Allergies Allergen (clinical drug ingredient) Drug/Non Drug Allergy documented on EMR Reaction Allergy Type Onset Date Status Iodine Unknown Drug Allergy Active Yellow Dye #6 ([place] Yellow) (any yellow) Drug Allergy Active Results Component Value Reference Range Notes Electrocardiogram (EKG) - 93 000 Reviewed date:12/26/2024 04:23:34 PM Interpretation: Performing Lab: Notes/Report: Reason For Referral No Information Medications Medication SIG (Take, Route, Frequency, Duration) Notes Start Date End Date Status Atenolol 25 MG Tablet TAKE 1 TABLET BY M OUT TWICE DAILY Oral; Duration: 30 days Active EPINEPHrine 0.3 MG/0.3ML Solution Auto-injector as directed Injection; Duration: 1 days As needed Active Social History Tobacco Use: Social History Observation Description Date Details (start date - stop date) Never Smoker NA - NA Social History Drugs/Alcohol: Social Info Question Answer Notes Caffeine Intake: 2-3 cups per day tea and occ asional soda Tobacco Use: Social Info Question Answer Notes Tobacco Control (Standard) Tobacco use: Nonsmoker Additional Details Category Social Info Options Details Drugs/Alcohol: Do you smoke marijuana? Denies Do you drink alcohol? No Problems Problem Type SNOMED Code ICD Code Onset Dates Problem Status W/U Status Risk Notes Problem Family history of coronary arteriosclerosis (144546819) Family history of coronary arteriosclerosis (Z82.49) Active confirmed Problem Palpitations (09068082) Palpitation (R00.2) Active confirmed Problem Elevated blood pressure (67351684) Elevated blood pressure (I10) Active confirmed Vital Signs Heart Rate 76 /min 12/26/2024 Height-cm 165.1 cm 12/26/2024 Oximetry 98 % 12/26/2024 Blood pressure diastolic 90 mm Hg 12/26/2024 Weight-kg 62.46 kg 12/26/2024 Height 65 in 12/26/2024 Blood pressure systolic 140 mm Hg 12/26/2024 Weight 137.7 lbs 12/26/2024 BMI 22.91 kg/m2 12/26/2024 Encounters Encounter Location Date Provider Diagnosis [address] [place] [address] 12/26/2024 Cristian Lopez Palpitation R00.2 ; Elevated blood pressure I10 and Family history of coronary arteriosclerosis Z82.[address] [place] [address] 01/09/2025 Cristian Lopez Family history of coronary arteriosclerosis Z82.[address] [place] [address] 01/11/2025 Cristian Lopez Assessments Encounter Date Diagnosis (ICD Code) Assessment Notes Treatment Notes Treatment Clinical Notes Section Notes 01/09/2025 Family history of coronary arteriosclerosis (ICD-10 - Z82.49) 12/26/2024 Palpitation (ICD-10 - R00.2) Patient reports frequent episode of palpitation Obtain monitor for 24 hours Otherwise EKG from today showed sinus rhythm heart rate 67 12/26/2024 Elevated blood pressure (ICD-10 - I10) No history of hypertension Pressure today is 140/90 Continue to monitor 12/26/2024 Family history of coronary arteriosclerosis (ICD-10 - Z82.49) Obtain CT calcium score 12/26/2024 Other Shamar Hanley, am scribing for Cristian Lopez MD. Cristian Hanley MD, personally performed the services prescribed in this documentation, as scribed by Shamar Still and it is both accurate and complete. Plan Of Treatment Pending Test Test Name Order Date Holter x 24 Hour-[id number] 12/26/2024 CT Cardiac Scoring Diagnostic-[id number] 06/2024 CT Cardiac Scoring Diagnostic-[id number] 12/24 Next Appt Details Provider Name:Cristian craven, 03/27/2025 10:30:00 AM, [address] [place] [address], [phone], Insurance Providers Payer Name Payer Address Payer Phone Subscriber Number Group Number Insured Name Patient Relationship to Insured Coverage Start Date Coverage End Date [facility] [place] [address] [place] [address] [id number] ELLI VICTORIA Self - patient is the insured Medical (General) History Medical History History ICD Code denies covid vacc. seasonal allergies palpitations difficulty sleeping breast cancer kidney stones Surgical History Surgery Date(Month/Year) port placement and removal @ [facility] 2024 lumpectomy, right breast appendectomy 1992 Hospitalization History Reason Date(Month/Year) Echo @ [facility]
--- OUTSIDE RECORDS SUMMARY | 2025-01-21 09:07 | XMS_ITS | Encounter Summary ---
Author Organization [facility] Address [address] [facility] Attn: [place] [address] Care Team Providers Care Academic Support Director Name Role Phone Syed Frederick MD Primary Care Provider [phone] Encounter Details Date Type Department Care Team (Late st Contact Info) Description 05/12/2007 Outpatient Historical Marisabel Cuellar MD [address] [facility], [facility] [address] [place] [address] Social History Tobacco Use Types Packs/Day Years Used Date Smoking Tobacco: Never Assessed Comments Unknown Sex and Gender Information Value Date Recorded Sex Assigned at Not on file Legal Sex Female 5:08 AM PROVINCE ARCHIVIST Gender Identity Not on file Sexual Orientation Not on file documented as of this encounter Plan of Treatment Not on file documented as of this encounter Visit Diagnoses Not on filedocumented in this encounter Care Teams Academic Support Director Relationship Specialty Start Date End Date Syed Frederick MD [address] [place] [address] PCP - General 11/14/06 documented as of this encounter
[2025-01-21 09:44] VITALS: BP 159/93; PULSE 81; RESP 17; TEMP 36.7; O2SAT 97; BMI 22.4
--- NOTE | 2025-01-21 09:58 | ED_ITS ---
HPI - Animal Bite General: Chief Complaint: Animal Bite Stated Complaint: possible rabies exposure Time Seen by Provider: 01/21/25 08:58 History of Present Illness: 50-year-old female presents to the emerg ency room after possible rabies exposure. 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 Was tested for several possible encephalitis as all of which was negative. After the horse had been euthanized the vet became concerned that the horse may have had rabies recommended that she be evaluated. Unknown if the horse have been bitten by any other animal but did reside outside and there is the potential. Our area has a very high number of animals recently that have tested positive for rabies. Related Data Home Medications ?Medication ?Instructions ?Recorded ?Confirmed albuterol sulfate 2.5 mg/3 mL 2.5 mg inhalation Q4H MN N 07/05/23 01/22/25 (0.083 %) solution for nebulization Shortness Of Breat h albuterol sulfate 90 mcg/actuation 1 puff inhalation Q 4H PRN 07/05/23 01/22/25 aerosol inhaler Shortness Of Breath atenolol 25 mg tablet 25 mg PO BID heart palpitati ons 05/31/24 01/22/25 budesonide-formoterol HFA 160 2 puff inhalation BID MN N Allergy 05/31/24 01/22/25 mcg-4.5 mcg/actuation aerosol Symptoms inhaler (Symbicort) triamcinolone acetonide 10 mg/mL 10 mg SUBCUT .[id number] s 05/31/24 01/22/25 suspension for injection (Kenalog) vitamin D3 125 mcg (5,000 1 cap PO DAILY 05/31/2412/26 0 unit)-vitamin K2 180 mcg capsule (K2-D3 Max) Previous Rx's ?Medication ?Instructions ?Recorded epinephrine 0.3 mg/0.3 mL 0.3 mg (0.3 mL) IM Q1H PRN 0 06/20/24 injection, auto-injector (EpiPen anaphylaxis #2 ea 2-Iglesia) ondansetron HCl 4 mg tablet 4 mg PO Q6H PRN nausea and 07/12/24 vomiting #30 tabs amoxicillin 875 mg-potassium 1 tab PO BID 10 days #20 tabs 12/28/24 clavulanate 125 mg tablet levothyroxine 50 mcg capsule 100 mcg (2 x 50 mcg) PO D AILY #60 12/28/24 caps Allergies Allergy/AdvReac Type Severity Reaction Status Date / Time carboplatin Allergy Severe ADR-hives Verified 12/27/24 11:19 chlorhexidine (From Allergy Unknown ALGY-Hives Verified 12/27/24 11:19 ChloraPrep Clear) yellow dye Allergy Unknown Verified 12/27/24 11:19 PFSH ED PFSH: Family History Father Diabetes Social History Smoking and tobacco/nicotine status: never used tobacco/nicotine Second hand smoke exposure: No Alcohol intake: never Substance/Drug Use: never Additional social history: Wants full code discussed in the presence of her sister and mother 08/23/2024 Adopted: No Caregiver/support person: No Lives independently: Yes Household members: significant other Housing: House Marital status: Number of children: 0 Highest education level completed: Associate Degree: Occupational, Technical, Vocational Program service: No Current occupational status: employed Physical Exam Const: COMMON NORMALS: no acute distress GENERAL APPEARANCE: cooperative and comfortable ORIENTATION/CONSCIOUSNESS: Yes awake, Yes oriented to person, Yes oriented to place and Yes oriented to time HENMT: COMMON NORMALS: normocephalic, atraumatic and hearing grossly normal bilaterally HEAD & SCALP: normocephalic and atraumatic Resp: COMMON NORMALS: normal respiratory effort Extremity: COMMON NORMALS: normal to inspection, capillary refill normal, no clubbing, cyanosis or edema, no calf tenderness and no pedal edema Neuro: SENSORIUM/ORIENTATION: Yes oriented to person, Yes oriented to place and Yes oriented to time Skin: COMMON NORMALS: no rashes or lesions noted GENERAL SKIN EXAM: no rashes or lesions noted Course Vital Signs: Vital signs: Vital Signs Temperature 98.1 F 01/21/25 09:44 Pulse Rate 81 01/21/25 09:44 Respiratory Rate 17 01/21/25 09:44 Blood Pressure 159/93 01/21/25 09:44 Pulse Oximetry 97 01/21/25 09:44 Oxygen Delivery Me thod Room Air 01/21/25 09:44 MDM - Animal Bite Medical Decision Making Would agree given the endemic rate of rabies in this area and the possibility that she may have cared for a animal that may have had it she should have rabies prophylaxis dressing room attendant had encouraged her to pursue it I would tend to agree given totality of the circumstances she is agreeable to that she is given rabies immunoglobulin and the first dose of rabies vaccine and follow-up with her schedule as given at the time of discharge Medical Records I reviewed the patient's medical records. Lab Data I reviewed the patient's lab results. No radiology studies performed this visit Discharge Plan Discharge Patient Disposition: Home Clinical Impression: Need for post exposure prophylaxis for rabies Condition: Stable Prescriptions: No Action atenolol 25 mg tablet 25 mg PO BID budesonide-formoterol [Symbicort] 160-4.5 mcg/actuation HFA aerosol inhaler 2 puff inhalation BID PRN (Reason: Allergy Symptoms) Kenalog 10 mg/mL suspension 10 mg SUBCUT .[id number] Rx Instructions: inject into site as ten - 1 mg doses greater than or equal to 1 cm apart K2-D3 Max 125 mcg (5,000 unit)-180 mcg capsule 1 cap PO DAILY amoxicillin-pot clavulanate 875-125 mg tablet 1 tab PO BID 10 Days Qty: 20 2RF Rx Instructions: PATIENT HAS A SIGNIFICANT YELLOW DYE ALLERGY!!!plase make sure no yellow dye in med and if so can call me at [phone] and we will figure out another antibiotic! levothyroxine 50 mcg capsule 100 mcg PO DAILY Qty: 60 6RF Rx Instructions: PATIENT HAS A SEVERE YELLOW DYE ALLERGY AND CANNOT HAVE PRODUCTS WITH ANY YELLOW DYE! She was given 100 mcg last night but they are yellow! We just need to get her a total dose of 100 mcg daily WITHOUT yellow dye-however we need to dose tablets/capsules to get there! If you need a different script, call me at [phone] and we will figure it out! Thank you, SK epinephrine [EpiPen 2-Iglesia] 0.3 mg/0.3 mL auto-injector 0.3 mg IM Q1H PRN (Reason: anaphylaxis) Qty: 2 2RF Rx Instructions: do not exceed 12 doses per 24 hrs ondansetron HCl 4 mg tablet 4 mg PO Q6H PRN (Reason: nausea and vomiting) Qty: 30 3RF albuterol sulfate 2.5 mg /3 mL (0.083 %) solution for nebulization 2.5 mg inhalation Q4H PRN (Reason: Shortness Of Breath) albuterol sulfate 90 mcg/actuation HFA aerosol inhaler 1 puff INHALATION Q4H PRN (Reason: Shortness Of Breath) Discharge Orders: Discharge ED (Routine); Ordered 01/21/25 Ordered By: Gene Simons Referrals: Isabela Cancino NP [Primary Care Provider, Nurse Practitioner] Patient Instructions: Opioid Safety, Pain Management, Patient Portal & Sherrie Instructions Activity Restrictions/Additional Instructions: Thank you for choosing [facility] for your healthcare needs today. It is very important that you follow up as instructed or that you return to the Emergency Department should you have concerns or if your condition changes or worsens in any way. Emergency department visits are focused on emergent conditions, in some cases you may require further evaluation on an outpatient basis. You were seen in the emergency room after potential rabies exposure. Given the history it is advised for you to go through rabies postexposure prophylaxis. You are given the initial immunoglobulin in the emergency room as well as the first dose of rabies vaccine. Follow the rabies vaccine series as found on your discharge instructions. (Please note that included in your discharge packet is information concerning opioid safety and pain management. This information is given to all patients were discharged from the ER regardless of their discharge diagnosis or the medicines they usually take or are prescribed.) Print Language: Croatian Coding Level of Care Code ED Special Systems Technician for Petty Murphy
[2025-01-21] MEDS: rabies IG 300 unit/mL SDV 1 mL 1230 UNIT IM (10:09)
[2025-01-21] MEDS: rabies vaccine 2.5 unit SDV IM (10:10)
== END 2025-01-21 10:21 | disposition home or self-care (01) ==
PROVIDERS: Emergency Provider Family Medicine; PCP Nurse Practitioner
DX: Z20.3 Contact with and (suspected) exposure to rabies (principal); Z29.14 Encounter for prophylactic rabies immune globulin
CPT/HCPCS: 90375; 90471; 90675; 96372; 99283

== ENCOUNTER → 2025-01-22 09:55 | Outpatient (BNVA) | payer BC, SELFPAY | PROVIDERS: PCP Nurse Practitioner; Referring Provider Nurse Practitioner Family; Visit Provider Internal Medicine | DX: E03.9 Hypothyroidism, unspecified (principal); M25.50 Pain in unspecified joint; E55.9 Vitamin D deficiency, unspecified | CPT/HCPCS: 36415; 83516; 84439; 86376; 86800 ==

== ENCOUNTER 2025-02-05 10:15 | Oncology outpatient (recurring) (ONCR) | payer BC, SELFPAY ==
[2025-01-24] MEDS: rabies vaccine 2.5 unit SDV IM (09:05)
[2025-01-24 09:08] VITALS: BP 120/81; PULSE 85; RESP 16; TEMP 36.6; O2SAT 95
[2025-01-24 09:09] VITALS: BP 120/84; PULSE 78; RESP 18; TEMP 36.6; O2SAT 95
[2025-01-28] MEDS: rabies vaccine 2.5 unit SDV IM (15:10)
[2025-01-31 11:00] LABS: Hematocrit 40.1 % (36-47); Hemoglobin 13.40 g/dL (11.27-16.99); Mean Corpuscular HGB Conc 33.4 g/dL (30-55); Mean Corpuscular Hemoglobin 31.0 pg (27-33); Mean Corpuscular Volume 92.8 fl (85-98); Nucleated Red Blood Cells % 0 %; Platelet Count 296 10^3/cmm (157-399); Red Blood Count 4.32 10^6/uL (3.85-5.65); White Blood Count 9.68 10^3/uL (3.29-11.43)
[2025-01-31 11:16] LABS: Alanine Aminotransferase 10 U/L (0-33); Albumin Level 4.2 g/dL (3.5-5.2); Alkaline Phosphatase 93 U/L (35-105); Anion Gap 17.0 (5-19); Aspartate Amino Transferase 18 U/L (0-32); Blood Urea Nitrogen 23 mg/dL (6-20); Calcium 9.5 mg/dL (8.5-10.5); Carbon Dioxide 24 mmol/L (22-29); Chloride 104 mmol/L (98-107); Globulin 3.1 g/dL (1.3-4.6); Glucose 81 mg/dL (65-115); Osmolality Calculated 295 mOsm/kg (285-295); Potassium 4.0 mmol/L (3.5-5.1); Sodium 141 mmol/L (136-145); Total Protein 7.3 g/dL (6.6-8.7)
--- NOTE | 2025-02-05 09:15 | US_ITS ---
WS: [id number] THYROID ULTRASOUND HISTORY: Myxedema COMPARISON: None available. Right lobe: 1.3 cm x 1.5 cm x 3.7 cm (w x ap x l). Volume: 3.5 cm3. Normal sized thyroid which is mildly heterogeneous and lobulated. Very small hyperechoic nodule measuring 0.7 x 0.6 x 0.4 cm in the superior lateral RIGHT thyroid. No echogenic foci. The remaining gland is heterogeneous with no nodules. Left lobe: 1.3 cm x 1.3 cm x 3.5 cm (w x ap x l). Volume: 2.9 cm3. Small caliber gland with mild heterogeneity. No mass or nodule. Isthmus: 0.3 cm. US/US thyroid 08021 IMPRESSION: 1. TI-RADS 3; hyperechoic nodule superior RIGHT thyroid. As per TI-RADS no ult rasound follow-up necessary. 2. No suspicious thyroid nodules or masses.
[2025-02-05] MEDS: rabies vaccine 2.5 unit SDV IM (10:15)
== END 2025-02-22 23:59 | disposition home or self-care (01) ==
LOC: RAD 02-06
PROVIDERS: PCP Nurse Practitioner; Visit Provider Nurse Practitioner
DX: Z23 Encounter for immunization; Z20.3 Contact with and (suspected) exposure to rabies; E03.9 Hypothyroidism, unspecified; R79.89 Other specified abnormal findings of blood chemistry; E04.1 Nontoxic single thyroid nodule; Z53.9 Procedure and treatment not carried out, unspecified reason
CPT/HCPCS: 36415; 76536; 80053; 83615; 85025; 90471; 90675

== ENCOUNTER 2025-02-28 12:55 | Oncology outpatient (recurring) (ONCR) | payer BC, SELFPAY ==
[2025-02-28 13:27] LABS: Hematocrit 42.0 % (36-47); Hemoglobin 14.10 g/dL (11.27-16.99); Mean Corpuscular HGB Conc 33.6 g/dL (30-55); Mean Corpuscular Hemoglobin 30.7 pg (27-33); Mean Corpuscular Volume 91.3 fl (85-98); Nucleated Red Blood Cells % 0 %; Platelet Count 293 10^3/cmm (157-399); Red Blood Count 4.60 10^6/uL (3.85-5.65); White Blood Count 9.81 10^3/uL (3.29-11.43)
[2025-02-28 14:02] LABS: Alanine Aminotransferase 14 U/L (0-33); Albumin Level 4.1 g/dL (3.5-5.2); Alkaline Phosphatase 80 U/L (35-105); Anion Gap 17.9 (5-19); Aspartate Amino Transferase 20 U/L (0-32); Blood Urea Nitrogen 21 mg/dL (6-20); CA 15-3 55.2 U/mL (0-25); Calcium 9.4 mg/dL (8.5-10.5); Carbon Dioxide 22 mmol/L (22-29); Chloride 106 mmol/L (98-107); Globulin 3.0 g/dL (1.3-4.6); Glucose 94 mg/dL (65-115); Osmolality Calculated 297 mOsm/kg (285-295); Potassium 3.9 mmol/L (3.5-5.1); Sodium 142 mmol/L (136-145); Total Protein 7.1 g/dL (6.6-8.7)
== END 2025-03-24 23:59 | disposition home or self-care (01) ==
PROVIDERS: Internal Medicine; PCP Nurse Practitioner; Visit Provider Nurse Practitioner
DX: C50.411 Malignant neoplasm of upper-outer quadrant of right female breast (principal); Z17.1 Estrogen receptor negative status [ER-]
CPT/HCPCS: 36415; 80053; 83615; 85025; 86300

== ENCOUNTER → 2025-03-28 07:59 | Outpatient (BNVA) | payer BC, SELFPAY | PROVIDERS: PCP Nurse Practitioner; Visit Provider Nurse Practitioner | DX: R79.89 Other specified abnormal findings of blood chemistry (principal) | CPT/HCPCS: 82533 ==